=== PATIENT | male | born 1940 | race Caucasian/White ===

== ENCOUNTER → 2022-08-17 | Outpatient (CLI) | payer MEDICARE ==
--- NOTE | 2022-08-19 07:26 | PE ---
EXAMINATION TYPE: PET CT fusion skull to thigh DATE OF EXAM: 08/19/2022 CLINICAL INDICATION:Male, 82 years old with history of C61 Prostate CA; TECHNIQUE: Following the intravenous administration of 5.31 mCi of gallium 68 psma, whole body imag es are performed from the skull base to the midthigh. Images are reviewed on the computer in the cor onal, axial, and sagittal planes. Reconstructed rotating images are created on independent workstati on and reviewed on the computer. A non-contrast CT is performed in conjunction with the PET scan. COMPARISON: CT None, PET/CT None, FINDINGS: Mediastinal SUV mean is 0.4. Hepatic parenchyma SUV mean is 3.0. SKULL BASE AND NECK: No suspicious radiotracer activity. Symmetrical physiologic parotid and subling ual gland uptake. CHEST, MEDIASTINUM, AND HILAR REGION: No suspicious radiotracer activity. ABDOMEN AND PELVIS: No suspicious radiotracer activity. Prostate gland is absent there is radiotracer uptake within the surgical clips in the right with max SUV 15.4 which is hard to separate from the u rinary bladder OSSEOUS STRUCTURES: No suspicious radiotracer activity. OTHER CT: Cardiac conduction device with leads terminating in the right ventricle and right atrium. M ild cardiomegaly. Coronary artery atherosclerosis. Pulmonary trunk measuring up to 3.8 cm suggesting pulmonary hypertension. Emperatriz mesentery in the left upper quadrant. Left renal cysts. Multiple clonic diverticula. Infrarenal fusiform dilation measuring up to 2.5 cm. Left fat-containing inguinal herni a. The prostate is surgically absent. IMPRESSION: Focus of radiotracer uptake near the surgical bed on the right, unclear whether this is within the bl adder wall or just outside the bladder wall.
== END | disposition home or self-care (01) ==
LOC: RADPETMAIN 13:22
PROVIDERS: ATTEND Surgery
DX: C61 Malignant neoplasm of prostate (principal)
CPT/HCPCS: 78815; A9596

== ENCOUNTER → 2022-10-09 | Outpatient (CLI) | payer MEDICARE ==
--- NOTE | 2022-10-09 10:37 | BD ---
EXAMINATION TYPE: Axial Bone Density DATE OF EXAM: 10/09/2022 COMPARISON: NONE CLINICAL HISTORY: 82 years year old Male. ICD-10 CODE: R81.8 OTHER OSTEOPOROSIS WITHOUT CURRENT PATH OLOGI Height: 5ft 5.5inches Weight: 190.1 FRAX RISK QUESTIONS: Alcohol (3 or more units per day): NO Family History (Parent hip fracture): NO Glucocorticoids (More than 3mos): NO (Ex: prednisone, prednisolone, methylprednisolone, dexamethasone, and hydrocortisone). History of Fracture in Adulthood: NO Secondary Osteoporosis: 1. Type 1 Diabetes: NO 2. Hyperthyroidism: NO 4. Malnutrition: NO 5. Chronic liver disease: NO Rheumatoid Arthritis: NO Current Tobacco Use: NO RISK FACTORS HISTORY OF: Hip Fracture (Right/Left): NO Spine Fracture: NO History of Wrist Fracture: NO surgery to Spine/Hip(right/left)/Wrist (right/left): NO Family History of Osteoporosis: NO Active: YES Diet low in dairy products/other sources of calcium: NO Lost more than 2 inches in height since high school: YES Frequent falls: NO Poor Health: GOOD Hyperparathyroidism: NO Adrenal Insufficiency: NO MEDICATIONS: Prednisone or other steroids: NO Thyroid Medications: NO Osteoporosis Medications: NO Additional Medications: CALCIUM, VITAMIN D, METROPROLOL, CARBAMAZEPINE, BLOOD PRESSURE MEDS, CHOLESTE ROL MEDS, NEXIUM, ANXIETY MEDS, INJECTION FOR PSA DONE EVERY THREE MONTHS EXAM MEASUREMENTS: Bone mineral densitometry was performed using the myhomemove System. Bone mineral density as measured about the Lumbar spine is: ----- L1-L4(G/cm2): 1.174 T Score Values are as follows: ----- L1: -0.3 ----- L2: -0.5 ----- L3: 1.0 ----- L4: -0.6 ----- L1-L4: -0.1 BASELINE AT [facility] Bone mineral density about the R hip (g/cm2): 0.814 Bone mineral density about the L hip (g/cm2): 0.899 T Score values are as follows: -----R Neck: -1.6 -----L Neck: -1.0 -----R Total: -0.7 -----L Total: -1.1 BASELINE AT [facility] FRAX%s: The graph provided illustrates a 1.9% chance for a major osteoporotic fx and a 0.9% chance fo r the hips probability for fx in 10 years time. IMPRESSION: Osteopenia (T Score between -2.5 and -1). There is slightly increased risk of fracture and the patient may be considered for treatment. Re-Screen 2-5 years. NOTE: T-SCORE=SD OF THE YOUNG ADULT MEAN.
== END | disposition home or self-care (01) ==
LOC: RADBDWWP 08:28
PROVIDERS: ATTEND Surgery
DX: M85.89 Other specified disorders of bone density and structure, multiple sites (principal)
CPT/HCPCS: 77080

== ENCOUNTER 2023-11-03 11:12 | Inpatient (IN) | payer MEDICARE ==
--- NOTE | 2023-11-03 11:39 | ED ---
General Adult HPI - General Chief complaint: Neuro Symptoms/Deficit Stated complaint: Weakness Time Seen by Provider: 11/03/23 11:19 Source: patient, EMS, RN notes reviewed Mode of arrival: EMS Limitations: physical limitation - History of Present Illness Initial comments: Patient is a pleasant 83-year-old male presenting to the emergency department with concerns for right leg weakness. Onset of symptoms was 6 PM approximately yesterday. Symptoms have been persistent since that time. Patient does have difficulty walking. No upper extremity involvement. No speech involvement. No facial weakness. No confusion or visual changes. No history of similar symptoms previously. Symptoms have been steady since onset. - Related Data Allergies Allergy/AdvReac Type Severity Reaction Status Date / Time No Known Allergies Allergy Verified 11/03/23 11:31 Review of Systems ROS Statement: Those systems with pertinent positive or pertinent negative responses have been documented in the HPI. ROS Other: All systems not noted in ROS Statement are negative. Constitutional: Denies: fever Eyes: Denies: eye pain ENT: Denies: ear pain Respiratory: Denies: cough Cardiovascular: Denies: chest pain Endocrine: Denies: fatigue Gastrointestinal: Denies: abdominal pain Genitourinary: Denies: dysuria Musculoskeletal: Denies: back pain Neurological: Reports: as per HPI, weakness. Denies: headache Past Medical History Past Medical History: Heart Failure, Hypertension History of Any Multi-Drug Resistant Organisms: None Reported Past Surgical History: Prostate Surgery Past Psychological History: No Psychological Hx Reported Smoking Status: Former smoker Past Alcohol Use History: Rare Past Drug Use History: None Reported General Exam Limitations: physical limitation General appearance: alert, in no apparent distress Head exam: Present: atraumatic Eye exam: Present: normal appearance, PERRL, EOMI ENT exam: Present: normal oropharynx Neck exam: Present: normal inspection Respiratory exam: Present: normal lung sounds bilaterally Cardiovascular Exam: Present: regular rate, normal rhythm GI/Abdominal exam: Present: soft. Absent: tenderness Extremities exam: Present: normal inspection, full ROM. Absent: tenderness Neurological exam: Present: alert, oriented X3, CN II-XII intact Expanded Neurological exam: Present: protecting the airway Speech: Present: fluid speech Cranial nerves: Facial Sensation: Normal Sensory exam: Upper Extremity Light Touch: Normal, Lower Extremity Light Touch: Abnormal Right Motor strength exam: RUE: 5, LUE: 5, RLE: 3, LLE: 5 Eye Response: (4) open spontaneously Motor Response: (6) obeys commands Verbal Response: (5) oriented Psychiatric exam: Present: normal affect, normal mood Skin exam: Present: normal color Course Vital Signs 11/03/23 11:19 Temperature 98.9 F Blood Pressure 194/99 EKG Findings - EKG Results: EKG: interpreted by ERMD (Paced rhythm with a rate of 62. Left axis. Wide QRS complex. Left bundle branch block. Nonspecific ST-T.) Medical Decision Making - Medical Decision Making NIH is 2 for right leg weakness and decreased sensation. Patient is not considered a TPA candidate secondary to risks outweighing the benefits. Onset of symptoms was greater than 4.5 hours. Case was discussed with Dr. Rodriguez who agrees. Was pt. sent in by a medical professional or institution (, PA, FINISH REPAIRER, urgent c are, hospital, or senior care...) When possible be specific @ -No Did you speak to anyone other than the patient for history (EMS, parent, family, police, friend...)? What history was obtained from this source @ -No Did you review nursing and triage notes (agree or disagree)? Why? @ -I reviewed and agree with nursing and triage notes Were old charts reviewed (outside hosp., previous admission, EMS record, old EKG, old radiological studies, urgent care reports/EKG's, senior care records)? Report findings @ -No old charts were reviewed Differential Diagnosis (chest pain, altered mental status, abdominal pain women, abdominal pain men, vaginal bleeding, weakness, fever, dyspnea, syncope, headache, dizziness, GI bleed, back pain, seizure, CVA, palpatations, mental health, musculoskeletal)? @ -Differential Weakness: Hypoglycemia, shock, sepsis, hyponatremia, anemia, infection, MO, ETOH, adverse medicine reaction, overdose, stroke, this is not meant to be an all-inclusive list. EKG interpreted by me (3pts min.). @ -As above X-rays interpreted by me (1pt min.). @ -Chest x-ray shows no acute process CT interpreted by me (1pt min.). @ -CT brain without acute obvious abnormality. U/S interpreted by me (1pt. min.). @ -None done What testing was considered but not performed or refused? (CT, X-rays, U/S, labs)? Why? @ -None What meds were considered but not given or refused? Why? @ -None Did you discuss the management of the patient with other professionals (farhana ybarra i.e. , PA, FINISH REPAIRER, lab, RT, psych nurse, social work nurse, certified drug counselor, teacher, chief sales officer, case fitter)? Give summary @ -Case discussed with Dr. Hollis, who will admit covering hospital call. Case also discussed again with Dr. Rodriguez regarding possible vertebral occlusion. He recommends follow-up after patient is discharged as well as Brilinta, aspirin, and Lipitor. Was smoking cessation discussed for >3mins.? @ -No Was critical care preformed (if so, how long)? @ -31 minutes of critical care time Were there social determinants of health that impacted care today? How? (Home lessness, low income, unemployed, alcoholism, drug addiction, transportation, low edu. Level, literacy, decrease access to med. care, fdc, rehab)? @ -No Was there de-escalation of care discussed even if they declined (Discuss DNR or withdrawal of care, Hospice)? DNR status @ -No What co-morbidities impacted this encounter? (DM, HTN, Smoking, COPD, CAD, Cancer, CVA, ARF, Chemo, Hep., AIDS, mental health diagnosis, sleep apnea, morbid obesity)? @ -None Was patient admitted / discharged? Hospital course, mention meds given and route, prescriptions, significant lab abnormalities, going to OR and other pertinent info. @ -Patient reevaluated and updated. Patient unchanged. Patient and family updated. Patient will be admitted. Admission orders written. Consult placed for vascular and neurology. Undiagnosed new problem with uncertain prognosis? @ -No Drug Therapy requiring intensive monitoring for toxicity (Heparin, Nitro, Insulin, Cardizem)? @ -No Were any procedures done? @ -No Diagnosis/symptom? @ -cva Acute, or Chronic, or Acute on Chronic? @ -acute Uncomplicated (without systemic symptoms) or Complicated (systemic symptoms)? @ -default Side effects of treatment? @ -No Exacerbation, Progression, or Severe Exacerbation? @ -No Poses a threat to life or bodily function? How? (Chest pain, USA, MO, pneumonia, PE, COPD, DKA, ARF, appy, cholecystitis, CVA, Diverticulitis, Homicidal, Suicidal, threat to staff... and all critical care pts) @ -No - Lab Data Result diagrams: 11/03/23 12:10 11/03/23 12:10 Lab Results 11/03/23 11/03/23 11/03/23 Range/Units 12:10 12:10 12:10 WBC 7.9 (3.8-10.6) k/uL RBC 4.40 (4.30-5.90) m/uL Hgb 14.2 (13.0-17.5) gm/dL Hct 41.4 (39.0-53.0) % MCV 94.0 (80.0-100.0) fL MCH 32.3 (25.0-35.0) pg MCHC 34.3 (31.0-37.0) g/dL RDW 12.7 (11.5-15.5) % Plt Count 188 (150-450) k/uL MPV 8.6 Neutrophils % 80 % Lymphocytes % 12 % Monocytes % 5 % Eosinophils % 2 % Basophils % 0 % Neutrophils # 6.4 (1.3-7.7) k/uL Lymphocytes # 0.9 L (1.0-4.8) k/uL Monocytes # 0.4 (0-1.0) k/uL Eosinophils # 0.1 (0-0.7) k/uL Basophils # 0.0 (0-0.2) k/uL PT 11.0 (10.0-12.5) sec INR 1.0 (<1.2) APTT 24.3 (22.0-30.0) sec Sodium 140 (137-145) mmol/L Potassium 3.7 (3.5-5.1) mmol/L Chloride 105 (98-107) mmol/L Carbon Dioxide 25 (22-30) mmol/L Anion Gap 10 mmol/L BUN 13 (9-20) mg/dL Creatinine 0.51 L (0.66-1.25) mg/dL Est GFR (CKD-EPI)AfAm >90 (>60 ml/min/1.73 sqM) Est GFR (CKD-EPI)NonAf >90 (>60 ml/min/1.73 sqM) Glucose 169 H (74-99) mg/dL Calcium 9.3 (8.4-10.2) mg/dL Total Bilirubin 0.5 (0.2-1.3) mg/dL AST 23 (17-59) U/L ALT 22 (4-49) U/L Alkaline Phosphatase 65 (38-126) U/L Creatine Kinase 48 L (55-170) U/L Total Protein 6.6 (6.3-8.2) g/dL Albumin 4.0 (3.5-5.0) g/dL Disposition Clinical Impression: Cerebrovascular accident (CVA) Disposition: ADMITTED IP TO THIS HOSP Condition: Serious Is patient prescribed a controlled substance at d/c from ED?: No Referrals: None,Stated [Primary Care Provider] - 1-2 days Time of Disposition: 13:19
--- NOTE | 2023-11-03 12:01 | XR ---
EXAMINATION TYPE: XR chest 2V DATE OF EXAM: 11/03/2023 11:56 AM CLINICAL INDICATION:Male, 83 years old with history of altered mental status; [facility] COMPARISON: Pet/CT 08/17/2022. TECHNIQUE: XR chest 2V Frontal and lateral views of the chest. FINDINGS: Lungs/Pleura: There is no evidence of pleural effusion, focal consolidation, or pneumothorax. Pulmonary vascularity: Unremarkable. Heart/mediastinum: Cardiomediastinal silhouette is unremarkable. Two lead cardiac conduction device o verlying the left hemithorax with lead tips projecting over the right ventricle and right atrium. Musculoskeletal: No acute osseous pathology. Other findings: None IMPRESSION: No acute cardiopulmonary disease/process.
--- NOTE | 2023-11-03 12:12 | CT ---
EXAMINATION TYPE: CT brain wo con CT DLP: 1091.8 mGycm, Automated exposure control for dose reduction was used. DATE OF EXAM: 11/03/2023 11:59 AM COMPARISON: None. CLINICAL INDICATION:Male, 83 years old with history of Neuro deficit, acute, stroke suspected, ams TECHNIQUE: Brain: Axial CT images of the brain were obtained with coronal and sagittal reformats created and rev iewed. Contrast used: None. Oral contrast used: None. FINDINGS: Brain: Extra-axial spaces: No abnormal extra-axial fluid collections. Ventricular system: Within normal limits Cerebral parenchyma: No acute intraparenchymal hemorrhage or mass effect. The myers-white junction is well differentiated. Cerebellum: Unremarkable. Mass effect: No evidence of midline shift. Intracranial vasculature: unremarkable Soft tissues: Normal. Calvarium/osseous structures: No depressed skull fracture. Paranasal sinuses and mastoid air cells: Mild scattered paranasal sinus disease. Visualized orbits: Bilateral aphakia. IMPRESSION: No acute intracranial process.
--- NOTE | 2023-11-03 12:21 | CT ---
EXAMINATION TYPE: CT angio head neck CT DLP: 507 mGycm, Automated exposure control for dose reduction was used. DATE OF EXAM: 11/03/2023 12:09 PM COMPARISON: None. CLINICAL INDICATION:Male, 83 years old with history of Neuro deficit, acute, stroke suspected; PHH, w eakness TECHNIQUE: Axially acquired helical CT angiogram of the head and neck was obtained with contrast. Axi al images are supplemented with 3D reconstructions and MIP images which were post-processed at an in dependent workstation. NASCET criteria used. Contrast used:65 mL of Isovue 370 with IV Contrast, Oral contrast used: None. FINDINGS: CTA HEAD: No evidence of acute intracranial hemorrhage, mass effect, or midline shift. The ventricles, sulci, a nd cisterns are unremarkable. The visualized portions of the internal carotid arteries, middle cerebral arteries, anterior cerebral arteries, and posterior cerebral arteries are patent. origin of left posterior cerebral artery . The basilar and the intracranial portion of the vertebral arteries are patent. CTA NECK: Right Carotid System: The common carotid and external carotid arteries are patent. There is less than 25% stenosis at the c arotid bifurcation secondary to calcified/noncalcified plaque. The rest of the internal carotid arter y is patent. Left Carotid System: The common carotid and external carotid arteries are patent. There is less than 25% stenosis at the c arotid bifurcation secondary to calcified/noncalcified plaque. The rest of the internal carotid arter y is patent. There is poor visualization of the left vertebral artery. There is multiple collaterals posterior nec k and upper thorax possibly due to occlusion of the injection side possibly secondary to the left car diac conduction device leads. There is a three-vessel aortic arch. The origins of the great vessels a re patent. No evidence of hemodynamically significant stenosis. Upper thorax: Mild paraseptal and centrilobular emphysema changes. IMPRESSION: * There are multiple collaterals in the back. If the patient was injected on the left which is what is thought to have happened evaluation is limited due to bolus timing. There may be thrombus within t he upper extremity vasculature possibly secondary to cardiac conduction device leads. * Poor visualization of the left vertebral artery extending from its origin into the intracranial po rtion correlate for occlusion. Evaluation slightly limited by bolus timing and technique. Consider re peat exam with injection into the opposite arm. * There carotid system appears patent. The intracranial vasculature is without stenosis or aneurysm.
[2023-11-03 12:27] LABS: Basophils % (A) 0 %; Eosinophils # (A) 0.1 k/uL (0-0.7); Eosinophils % (A) 2 %; HCT 41.4 % (39.0-53.0); HGB 14.2 gm/dL (13.0-17.5); Lymphocytes # (A) 0.9 k/uL (1.0-4.8); Lymphocytes % (A) 12 %; MCH 32.3 pg (25.0-35.0); MCHC 34.3 g/dL (31.0-37.0); Mean Platelet Volume 8.6; Monocytes # (A) 0.4 k/uL (0-1.0); Monocytes % (A) 5 %; Neutrophils # (A) 6.4 k/uL (1.3-7.7); Neutrophils % (A) 80 %; Platelet Count 188 k/uL (150-450); RDW 12.7 % (11.5-15.5); WBC 7.9 k/uL (3.8-10.6)
[2023-11-03 12:36] LABS: ALT 22 U/L (4-49); AST 23 U/L (17-59); African American GFR (CKD) >90 (>60 ml/min/1.73 sqM); Alkaline Phosphatase 65 U/L (38-126); Anion Gap 10 mmol/L; Blood Urea Nitrogen 13 mg/dL (9-20); Calcium 9.3 mg/dL (8.4-10.2); Carbon Dioxide 25 mmol/L (22-30); Chloride 105 mmol/L (98-107); Creatine Kinase 48 U/L (55-170); Glucose 169 mg/dL (74-99); Non-African American GFR(CKD) >90 (>60 ml/min/1.73 sqM); Potassium 3.7 mmol/L (3.5-5.1); Sodium 140 mmol/L (137-145); Total Bilirubin 0.5 mg/dL (0.2-1.3); Total Protein 6.6 g/dL (6.3-8.2)
[2023-11-03 12:37] LABS: Partial Thromboplastin Time 24.3 sec (22.0-30.0)
[2023-11-03] MEDS ORDERED: ASPIRIN 325 MG TAB PO STA (13:20)
[2023-11-03] MEDS ORDERED: TICAGRELOR 90 MG TAB PO STA (13:22)
--- NOTE | 2023-11-03 13:47 | P.HPIM ---
History of Present Illness H&P Date: 11/03/23 History of present illness; patient is a 83-year-old gentleman with past medical history significant for hypertension, trigeminal neuralgia, hyperlipidemia with the ER because of right lower extremity weakness. Patient stated he was all right yesterday evening when around 6 PM he started noticing that his right leg was getting heavy and weak. He had a hard time ambulating and felt like he was dragging his feet, was also complaining that it felt as if his right leg was asleep. Patient denied any slurred speech, no complain of facial droop. There was no weakness of any other extremity. Patient didn't seek any medical advice at that time. Patient slept through the night and this morning his weakness persisted and he decided to come to the ER Initial lab work done in the ER showed WBC 7.9, hemoglobin 14.2, platelet count 188, sodium 140, potassium 3.7, BUNs 13, creatinine 0.51, AST 23, ALT 22, CK 48 Influenza A not detected Influenza B not detected RSV not detected COVID-19 not detected EKG done in the ER showed heart rate of 62, pacemaker rhythm seen Chest x-ray done in the ER showed no acute cardiopulmonary process CT brain done showed no acute intracranial process CTA head and neck done showed carotid system appears patent, intra cranial vasculature without stenosis or aneurysm. Questionable thrombus within the upper extremity vasculature possible secondary to cardiac conduction device leads Patient admitted to internal medicine service ER physician did talk to interventional neurology regarding possible vertebral occlusion, they recommended keeping patient on aspirin Plavix and Lipitor REVIEW OF SYSTEMS: CONSTITUTIONAL: No fever, no malaise, no fatigue. HEENT: No recent visual problems or hearing problems. Denied any sore throat. CARDIOVASCULAR: No chest pain, orthopnea, PND, no palpitations, no syncope. PULMONARY: No shortness of breath, no cough, no hemoptysis. GASTROINTESTINAL: No diarrhea, no nausea, no vomiting, no abdominal pain. NEUROLOGICAL: As mentioned above HEMATOLOGICAL: Denies any bleeding or petechiae. GENITOURINARY: Denies any burning micturition, frequency, or urgency. MUSCULOSKELETAL/RHEUMATOLOGICAL: As mentioned above ENDOCRINE: Denies any polyuria or polydipsia. The rest of the 14-point review of systems is negative. PHYSICAL EXAMINATION: GENERAL: The patient is alert and oriented x3, not in any acute distress. Well developed, well nourished. HEENT: Pupils are round and equally reacting to light. EOMI. No scleral icterus. No conjunctival pallor. Normocephalic, atraumatic. No pharyngeal erythema. No thyromegaly. CARDIOVASCULAR: S1 and S2 present. No murmurs, rubs, or gallops. PULMONARY: Chest is clear to auscultation, no wheezing or crackles. ABDOMEN: Soft, nontender, nondistended, normoactive bowel sounds. No palpable organomegaly. MUSCULOSKELETAL: No joint swelling or deformity. EXTREMITIES: No cyanosis, clubbing, or pedal edema. NEUROLOGICAL: Cranial nerves II-12 intact, muscle strength is 5 x 5 in all extremities, muscle strength is 3-5 in right lower extremity. SKIN: No rashes. Assessment and plan Acute stroke Hypertension Hyperlipidemia History of trigeminal neuralgia Monitor vital signs Monitor CBC Monitor CMP Continue telemetry monitoring Continue checks Allow permissive hypertension for first 24-48 hours Continue aspirin Interventional neurology recommended adding brilinta Neurology consulted Vascular surgery consulted for possible CTA head and neck finding of possible thrombus in left upper extremity related to cardiac conduction device leads Speech consulted PT and OT consulted Labs and medication were reviewed.. Continue same treatment. Continue with symptomatic treatment. Resume home medication. Monitor labs and vitals. DVT and GI prophylaxis. Further recommendations as per clinical course of the patient Dictation was produced using [employer] dictation software. please excuse any grammatical, word or spelling errors. Past Medical History Past Medical History: Heart Failure, Hypertension History of Any Multi-Drug Resistant Organisms: None Reported Past Surgical History: Prostate Surgery Past Psychological History: No Psychological Hx Reported Smoking Status: Former smoker Past Alcohol Use History: Rare Past Drug Use History: None Reported Medications and Allergies Allergies Allergy/AdvReac Type Severity Reaction Status Date / Time No Known Allergies Allergy Verified 11/03/23 11:31 Physical Exam Vitals: Vital Signs Temp BP 11/03/23 11:19 98.9 F 194/99 Intake and Output 11/02/23 11/03/23 11/03/23 22:59 06:59 14:59 Other: Weight 86.183 kg Results CBC & Chem 7: 11/03/23 12:10 11/03/23 12:10 Labs: Abnormal Lab Results - Last 24 Hours (Table) 11/03/23 11/03/23 Range/Units 12:10 12:10 Lymphocytes # 0.9 L (1.0-4.8) k/uL Creatinine 0.51 L (0.66-1.25) mg/dL Glucose 169 H (74-99) mg/dL Creatine Kinase 48 L (55-170) U/L
[2023-11-03] MEDS: SODIUM CHLORIDE 0.9% 1,000 ML IV SCH ×2 (14:58→22:45)
[2023-11-03] MEDS: carBAMazepine 200 MG TAB PO SCH ×3 (14:58→20:47)
[2023-11-03] MEDS: ATORVASTATIN 40 MG TAB PO SCH (14:58)
[2023-11-03] MEDS: PREGABALIN 75 MG CAP PO SCH ×2 (14:59→20:47)
[2023-11-03] MEDS: hydrALAZINE HCL 20 MG/ML 1 ML VIAL IVP PRN ×2 (15:01→23:35)
[2023-11-03] MEDS: TICAGRELOR 90 MG TAB PO SCH (20:47)
[2023-11-04 04:24] LABS: Glucose,Whole Blood 203 mg/dL (70-110)
[2023-11-04] MEDS ORDERED: ONDANSETRON 4 MG/2 ML VIAL IVP STA (05:04)
[2023-11-04 06:55] LABS: Basophils % (A) 0 %; Eosinophils % (A) 0 %; HCT 40.1 % (39.0-53.0); HGB 13.8 gm/dL (13.0-17.5); Lymphocytes # (A) 0.4 k/uL (1.0-4.8); Lymphocytes % (A) 4 %; MCH 32.5 pg (25.0-35.0); MCHC 34.4 g/dL (31.0-37.0); MCV 94.6 fL (80.0-100.0); Mean Platelet Volume 8.7; Monocytes # (A) 0.3 k/uL (0-1.0); Monocytes % (A) 3 %; Neutrophils # (A) 7.6 k/uL (1.3-7.7); Neutrophils % (A) 91 %; Platelet Count 183 k/uL (150-450); RBC 4.23 m/uL (4.30-5.90); WBC 8.4 k/uL (3.8-10.6)
--- NOTE | 2023-11-04 09:10 | P.GSCN ---
History of Present Illness Consult date: 11/04/23 Reason for Consult: Thrombus Requesting physician: James Regalado History of present illness: This is a pleasant 83-year-old male recently to the emergency department yesterday afternoon for complaints of right leg weakness and right upper extremity weakness. Apparently the symptoms began on Saturday evening around 6:00 and continued to persist so he came to the emergency department for further evaluation. He denies any other focal deficits such as difficulty with speech, vision change or vision loss, left extremity weakness or difficulty swallowing. He denies any previous history of stroke. Past medical history includes heart failure, hypertension, and has pacemaker. He currently states he still has weakness in the right upper and lower extremity. Denies any pain swelling or weakness in his left upper extremity. He had a CT angiogram head and neck that reported limited evaluation due to bolus timing. There may be thrombus within the left upper extremity vascular possible secondary to cardiac, and adduction device leads. Bilateral internal carotid arteries patent with less than 25% stenosis bilaterally. Vascular surgery was consulted for possible venous thrombus in the left upper extremity. Review of Systems A 14 point review systems was completed all pertinent positives and negatives as stated in the HPI. 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, anuerysm, skin cancer, prostate cancer a shot q3 months History of Any Multi-Drug Resistant Organisms: None Reported Past Surgical History: Prostate Surgery Past Psychological History: No Psychological Hx Reported Smoking Status: Former smoker Past Alcohol Use History: Rare Past Drug Use History: None Reported Medications and Allergies Home Medications Medication Instructions Recorded Confirmed Type Aspirin EC [Ecotrin Low Dose] 81 mg PO DAILY 11/03/23 11/03/23 History Atorvastatin [Lipitor] 20 mg PO DAILY 11/03/23 11/03/23 History Furosemide [Lasix] 20 mg PO DAILY 11/03/23 11/03/23 History Metoprolol Tartrate [Lopressor] 200 mg PO BID 11/03/23 11/03/23 History Pregabalin [Lyrica] 150 mg PO BID 11/03/23 11/03/23 History Valsartan [Diovan] 160 mg PO BID 11/03/23 11/03/23 History amLODIPine [Norvasc] 10 mg PO DAILY 11/03/23 11/03/23 History carBAMazepine [TEGretol] 200 mg PO TID 11/03/23 11/03/23 History Allergies Allergy/AdvReac Type Severity Reaction Status Date / Time No Known Allergies Allergy Verified 11/03/23 13:42 Surgical - Exam Vital Signs Temp BP 98.9 F 194/99 11/03/23 11:19 11/03/23 11:19 General appearance: The patient is alert, oriented, appears in no acute distress. HET: Head is normocephalic and atraumatic. Pupils are equal and reactive. Neck: Supple. Heart: Regular. Lungs: Equal expansion, normal respiratory effort. Abdomen: Soft, nontender, nondistended. Extremities: Normal skin color and turgor. Neurological: Speech is fluent, patient has facial symmetry Patient is alert and oriented. 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 Right lower extremity weakness. Bilateral upper and lower extremity with good strength and tone. There is no left upper extremity swelling, redness or pain. Palpable bilateral radial pulses. Palpable bilateral PT pulses. Results - Labs 11/04/23 06:27 11/03/23 12:10 Abnormal Lab Results - Last 24 Hours (Table) 11/03/23 11/03/23 11/04/23 Range/Units 12:10 12:10 04:22 RBC (4.30-5.90) m/uL Lymphocytes # 0.9 L (1.0-4.8) k/uL Creatinine 0.51 L (0.66-1.25) mg/dL Glucose 169 H (74-99) mg/dL POC Glucose (mg/dL) 203 H (70-110) mg/dL Creatine Kinase 48 L (55-170) U/L 11/04/23 Range/Units 06:27 RBC 4.23 L (4.30-5.90) m/uL Lymphocytes # 0.4 L (1.0-4.8) k/uL Creatinine (0.66-1.25) mg/dL Glucose (74-99) mg/dL POC Glucose (mg/dL) (70-110) mg/dL Creatine Kinase (55-170) U/L Diabetes panel 11/03/23 Range/Units 12:10 Sodium 140 (137-145) mmol/L Potassium 3.7 (3.5-5.1) mmol/L Chloride 105 (98-107) mmol/L Carbon Dioxide 25 (22-30) mmol/L BUN 13 (9-20) mg/dL Creatinine 0.51 L (0.66-1.25) mg/dL Glucose 169 H (74-99) mg/dL Calcium 9.3 (8.4-10.2) mg/dL AST 23 (17-59) U/L ALT 22 (4-49) U/L Alkaline Phosphatase 65 (38-126) U/L Total Protein 6.6 (6.3-8.2) g/dL Albumin 4.0 (3.5-5.0) g/dL Calcium panel 11/03/23 Range/Units 12:10 Calcium 9.3 (8.4-10.2) mg/dL Albumin 4.0 (3.5-5.0) g/dL Pituitary panel 11/03/23 Range/Units 12:10 Sodium 140 (137-145) mmol/L Potassium 3.7 (3.5-5.1) mmol/L Chloride 105 (98-107) mmol/L Carbon Dioxide 25 (22-30) mmol/L BUN 13 (9-20) mg/dL Creatinine 0.51 L (0.66-1.25) mg/dL Glucose 169 H (74-99) mg/dL Calcium 9.3 (8.4-10.2) mg/dL Adrenal panel 11/03/23 Range/Units 12:10 Sodium 140 (137-145) mmol/L Potassium 3.7 (3.5-5.1) mmol/L Chloride 105 (98-107) mmol/L Carbon Dioxide 25 (22-30) mmol/L BUN 13 (9-20) mg/dL Creatinine 0.51 L (0.66-1.25) mg/dL Glucose 169 H (74-99) mg/dL Calcium 9.3 (8.4-10.2) mg/dL Total Bilirubin 0.5 (0.2-1.3) mg/dL AST 23 (17-59) U/L ALT 22 (4-49) U/L Alkaline Phosphatase 65 (38-126) U/L Total Protein 6.6 (6.3-8.2) g/dL Albumin 4.0 (3.5-5.0) g/dL - Imaging Comments: CT angiogram head and neck estr[place] regions multiple collaterals in the back. If the patient was injected on the left which is what is thought to have happen evaluation is limited due to bolus timing. There may be thrombus within the upper extremity vasculature possibly secondary to cardiac conduction device leads. Poor visualization of the left vertebral artery extending from its origin into the intracranial portion correlate for occlusion. Evaluation slightly limited by bolus timing and technique. Consider repeat exam with injection into the opposite arm. The carotid system appears patent. Intracranial vasculature is without stenosis or aneurysm. Brain CT reports no acute intracranial process. Chest x-ray reports no acute cardiopulmonary disease/process Assessment and Plan Assessment: 1. Right upper and lower extremity weakness likely CVA 2. Possible left upper extremity thrombus 3. History hypertension 4. Coronary artery disease with pacemaker Plan: Imaging independently reviewed by Dr. Gates. Unclear if there is truly is a thrombus however patient is asymptomatic with no swelling, no pain, and he has palpable radial and ulnar pulses. He is also without any significant bilateral internal carotid artery stenosis. No indication for any vascular surgical intervention or anticoagulation. Thank you for this consultation. Continue with recommendations from neurology. Thank you for this consultation, we will sign off at this time. The impression and plan of care has been dictated as directed. I performed a history and examination of this patient, discussed the same with the dictator. I agree with the dictator's note ,documented as a scribe. Any additional findings or plans will be noted.
[2023-11-04] MEDS: ASPIRIN 81 MG PO SCH (09:29)
[2023-11-04] MEDS: ATORVASTATIN 40 MG TAB PO SCH (09:30)
[2023-11-04] MEDS: PREGABALIN 75 MG CAP PO SCH ×2 (09:30→21:11)
[2023-11-04] MEDS: TICAGRELOR 90 MG TAB PO SCH ×2 (09:30→21:11)
[2023-11-04] MEDS: carBAMazepine 200 MG TAB PO SCH ×5 (09:30→21:11)
--- NOTE | 2023-11-04 11:15 | CA ---
Transthoracic Echo Report Name: Brad Mortensen Age: 83 Gender: M : 1940 Exam Date: 11/04/2023 08:21 Exam Location: [facility] Ht (in): 67 Wt (lb): 190 Ordering Physician: James Regalado DO Attending/Referring Phys: Validation Scientist Elyse Joiner RDCS Procedure CPT: Indications: Thrombus Cardiac Hx: AICD Technical Quality: Fair Contrast 1: Total Dose (mL): Contrast 2: Total Dose (mL): MEASUREMENTS (Male / Female) Normal Values 2D ECHO LV Diastolic Diameter PLAX 5.1 cm 4.2 - 5.9 / 3.9 - 5.3 cm LV Systolic Diameter PLAX 4.0 cm IVS Diastolic Thickness 1.0 cm 0.6 - 1.0 / 0.6 - 0.9 cm LVPW Diastolic Thickness 1.1 cm 0.6 - 1.0 / 0.6 - 0.9 cm LV Relative Wall Thickness 0.4 RV Internal Dim ED PLAX 3.6 cm LA Systolic Diameter LX 3.4 cm 3.0 - 4.0 / 2.7 - 3.8 cm LV Diastolic Volume MOD 4C 120.9 cm??? LV Systolic Volume MOD 4C 65.5 cm??? LV Ejection Fraction MOD 4C 45.8 % LV Cardiac Index MOD 4C 1814.7 cm???/min???m??? LV Diastolic Length 4C 7.9 cm LV Systolic Length 4C 7.0 cm LA Volume 50.0 cm??? 18 - 58 / 22 - 52 cm??? LA Volume Index 24.5 cm???/m??? 16 - 28 cm???/m??? M-MODE Aortic Root Diameter MM 3.8 cm MV E Point Septal Separation 0.7 cm AV Cusp Separation MM 2.6 cm DOPPLER AV Peak Velocity 404.1 cm/s AV Peak Gradient 65.3 mmHg AV Mean Velocity 273.0 cm/s AV Mean Gradient 35.7 mmHg AV Velocity Time Integral 93.2 cm LVOT Peak Velocity 519.2 cm/s LVOT Peak Gradient 107.8 mmHg MV Area PHT 2.0 cm??? Mitral E Point Velocity 123.9 cm/s Mitral A Point Velocity 135.1 cm/s Mitral E to A Ratio 0.9 MV Deceleration Time 371.2 ms MV E' Velocity 4.8 cm/s Mitral E to MV E' Ratio 25.8 TR Peak Velocity 262.1 cm/s TR Peak Gradient 27.5 mmHg Right Ventricular Systolic Press 32.5 mmHg FINDINGS Left Ventricle Left ventricular ejection fraction is estimated at 40-45 %. Left ventricular cavity size normal. Apical and distal anterior wall hypokinesis Right Ventricle Mild right ventricular dilatation. Right ventricular systolic pressure within normal limits. Right Atrium Normal right atrial size. Left Atrium Mildly increased left atrial area. Mitral Valve Structurally normal mitral valve. Mitral annular calcification. No mitral stenosis, or prolapse. Mild mitral regurgitation. Aortic Valve Aortic valve sclerosis. LVOT obstruction with mean gradient of 53 mmhg Tricuspid Valve Structurally normal tricuspid valve. Mild tricuspid regurgitation. Pulmonic Valve Structurally normal pulmonic valve. No pulmonic regurgitation. Pericardium No pericardial effusion. Aorta Mild aortic dilatation at the level of the sinuses of valsalva 38 mm CONCLUSIONS 1. Normal left ventricular size with moderately impaired systolic function and segmental wall motion abnormality 2. Mild mitral and tricuspid regurgitation 3. 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 Fuad Harmon MD (Electronically Signed) Final Date: 04 November 2023 11:14
[2023-11-04 11:20] LABS: Chol/HDL Ratio 2.93 Ratio; LDL Cholesterol,Calculated 81.3 mg/dL (0.0-131.0)
[2023-11-04 11:26] LABS: Glucose,Whole Blood 253 mg/dL (70-110)
[2023-11-04] MEDS ORDERED: DEXTROSE 50% SYRINGE 50 ML IVP PRN ×2 (11:44)
[2023-11-04] MEDS: INSULIN ASPART (NovoLOG) 100 UNIT/ML VIAL SQ SCH ×3 (13:14→21:11)
[2023-11-04] MEDS: amLODIPine 10 MG TAB PO SCH (13:14)
[2023-11-04] MEDS ORDERED: CYANOCOBALAMIN 1,000 MCG/ML 1 ML VIAL IM ONE (13:40)
--- NOTE | 2023-11-04 13:44 | P.CNNES ---
History of Present Illness Consult date: 11/04/23 Requesting physician: James Regalado Reason for Consult: cva History of Present Illness: This is an 83-year-old gentleman who presented emergency department because of the weakness and numbness over the right side. He is accompanied with his daughter who provided some of the history. According to the patient this Saturday early in afternoon he noticed that the he had the unsteady gait with weakness. He fell on since you have had weakness. He said that he woke up and noticed his symptoms and unknown exactly last normal state. Since he is having weakness and numbness over the right side. He brushed off his symptoms and [facility] the [facility] and numbness E [facility]. He denies any history of stroke. Does have underlying history of hypertension, prostate cancer, skin cancer, trigeminal neuralgia. He does have a pacemaker/defibrillator. Some of the workup during his hospital visit consisted of: Lipid panel is triglyceride 127, cholesterol 162, LDL is 81, HDL 55 Findings B12 is 273 which is considered very low normal TSH is 1.650 CK levels for [address] of the head is reported as no acute intercranial process. I personally rev iewed the CT and I agree with the report. CTA angiography of head and neck was reported as there is multiple collateral in the back. If the patient was injected with the left which is what is thought to have happened eval since limited due to bolus timing. There may be a thrombus within the upper extremity vasculature possibly secondary to cardiac conduction device leads. Poor visualization of the left vertebral artery extending from its origin into the intracranial portion correlate for occlusion. The options slightly limited by bolus timing and techniques at. Consider repeat exam with i njection into the opposite arm. The carotid system appears patent. The intracranial vasculature is without stenosis or aneurysm. 2-D echo was reported as normal left ventricular size with moderately impaired systolic function and that segmental wall motion abnormality. 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 The ED team spoke with Dr. Ram, stroke/interventional neurologist with her notes regarding the patient's the strokelike symptoms and the imaging and he recommended follow-up as an outpatient after the patient is discharged and he recommends aspirin, Berlant and Lipitor. Review of Systems The positive and negative as per HPI. 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, anuerysm, skin cancer, prostate cancer a shot q3 months History of Any Multi-Drug Resistant Organisms: None Reported Past Surgical History: Prostate Surgery Past Psychological History: No Psychological Hx Reported Smoking Status: Former smoker Past Alcohol Use History: Rare Past Drug Use History: None Reported Medications and Allergies Home Medications Medication Instructions Recorded Confirmed Type Aspirin EC [Ecotrin Low Dose] 81 mg PO DAILY 11/03/23 11/03/23 History Atorvastatin [Lipitor] 20 mg PO DAILY 11/03/23 11/03/23 History Furosemide [Lasix] 20 mg PO DAILY 11/03/23 11/03/23 History Metoprolol Tartrate [Lopressor] 200 mg PO BID 11/03/23 11/03/23 History Pregabalin [Lyrica] 150 mg PO BID 11/03/23 11/03/23 History Valsartan [Diovan] 160 mg PO BID 11/03/23 11/03/23 History amLODIPine [Norvasc] 10 mg PO DAILY 11/03/23 11/03/23 History carBAMazepine [TEGretol] 200 mg PO TID 11/03/23 11/03/23 History Allergies Allergy/AdvReac Type Severity Reaction Status Date / Time No Known Allergies Allergy Verified 11/03/23 13:42 Physical Examination - Vital Signs Vital Signs: Vital Signs Temp Pulse Pulse Resp BP BP Pulse Ox 11/04/23 09:25 98.5 F 70 16 177/73 96 11/04/23 04:00 97.8 F 67 16 136/67 96 11/04/23 02:00 60 18 11/03/23 23:29 97.7 F 60 18 190/75 97 11/03/23 20:00 98.0 F 63 20 180/88 96 11/03/23 17:05 97.7 F 65 22 180/78 97 11/03/23 14:30 176/100 11/03/23 13:30 181/99 Intake and Output 11/03/23 11/04/23 11/04/23 22:59 06:59 14:59 Intake Total 220 110 Balance 220 110 Intake: IV 20 Invasive Line 1 20 Oral 200 110 Other: Voiding Method Bedside Commode Bedside Commode Bedside Commode # Voids 1 1 Weight 86.183 kg GENERAL: The patient is lying in bed and is not in acute distress. NEUROLOGICAL: Higher mental function: The patient is awake, alert, oriented to self, place and time. Patient is following commands. No aphasia and no neglect. Cranial nerves: The pupils are round, equal and reactive to light and accommodation. Visual townsend are full to confrontation throughout. Extraocular movement is intact no nystagmus is noted. Facial sensation is normal to touch throughout. The facial strength is normal throughout. Hearing is nmildly decreased bilaterally to hand rub. Tongue is midline and moved [id number] without any difficulty. Mild dysarthria is noted. Shoulder shrug is normal bilaterally. Motor: The strength is right upper and lower extremity is 4-4+. Otherwise left is 5 over 5 throughout. Minimal decrease tone over the right side. Normal bulk. Cerebellum: Normal finger to nose bilaterally. Sensation: Sensation is normal to touch throughout. Reflexes (right/left): 2+ throughout. Plantars are downgoing bilaterally. Results - Laboratory Findings CBC and BMP: 11/04/23 06:27 11/03/23 12:10 Abnormal Lab Findings: Abnormal Labs 11/03/23 11/03/23 11/04/23 12:10 12:10 04:22 RBC Lymphocytes # 0.9 L Creatinine 0.51 L Glucose 169 H POC Glucose (mg/dL) 203 H Hemoglobin A1c Creatine Kinase 48 L 11/04/23 11/04/23 11/04/23 06:27 06:27 11:24 RBC 4.23 L Lymphocytes # 0.4 L Creatinine Glucose POC Glucose (mg/dL) 253 H Hemoglobin A1c 7.1 H Creatine Kinase Assessment and Plan Assessment: This is an 83-year-old gentleman who presented emergency department because of right-sided weakness numbness and dysarthria and his symptoms began on 11/02/2023 early afternoon the when he woke up from sleeping. He did not come to the hospital on 11/03/2023. Acute right-sided weakness with numbness and dysarthria likely due to acute ischemic stroke. No IV TPA since outside the window and the risk outweighed the benefit. ?Left vertebral thrombus on CTA Very low normal Vitamin B12 Trigemenial neuralgia over the right side. Diabetes mellitus Hypertension Heart failure status post pacemaker History of prostate cancer History of skin cancer Plan: I ordered MRI of the brain to assess if there is any acute or subacute stroke. We'll assess if his pacemaker is compatible for MRI. If not then we'll get a repeat CT of the head Patient is on aspirin 81 mg daily at home. Per ED team, Dr. Ram recommend addition of Brilinita and is he is on 90mg bid. He is on Lipitor 40mg qhs. Vessel surgeries on board a questionable left upper extremity thrombus in their notes that it is clear there is truly a thrombus however the patient is asymptomatic with no swelling no pain and has palpable radial and ulnar pulses. No indication for vascular intervention or anticoagulation at this time Continue neuro checks Cardiac monitoring PT OT and TELEGRAPH MECHANIC are consulted For ?left vertebral thrombus, per ED team, Dr. Ram recommended to follow-up with him as outpatient. For very low normal Vitamin B12, I started him on Vitamin B12 1000mcg IM once then PO daily after that. For the rest of the medical management to primary team For DVT prophylaxis. I started the patient on subcu heparin 5000 units every 12 hours The plan is discussed with patient and his daughter who is at bedside. Thank you for the consultation. Time with Patient: Greater than 30
[2023-11-04 16:15] LABS: Glucose,Whole Blood 287 mg/dL (70-110)
[2023-11-04 20:12] LABS: Glucose,Whole Blood 156 mg/dL (70-110)
[2023-11-04] MEDS: HEPARIN SODIUM,PORCINE 5,000 UNIT/ML 1 ML VIAL SQ SCH (21:11)
[2023-11-04] MEDS: SODIUM CHLORIDE 0.9% 1,000 ML IV SCH (23:51)
[2023-11-05] MEDS: SODIUM CHLORIDE 0.9% 1,000 ML IV SCH ×2 (03:33→12:06)
[2023-11-05 06:09] LABS: Glucose,Whole Blood 151 mg/dL (70-110)
[2023-11-05] MEDS: INSULIN ASPART (NovoLOG) 100 UNIT/ML VIAL SQ SCH ×4 (06:09→20:01)
[2023-11-05 06:50] LABS: African American GFR (CKD) >90 (>60 ml/min/1.73 sqM); Anion Gap 12 mmol/L; Blood Urea Nitrogen 14 mg/dL (9-20); Calcium 8.6 mg/dL (8.4-10.2); Carbon Dioxide 21 mmol/L (22-30); Chloride 106 mmol/L (98-107); Glucose 171 mg/dL (74-99); Non-African American GFR(CKD) >90 (>60 ml/min/1.73 sqM); Potassium 3.6 mmol/L (3.5-5.1); Sodium 139 mmol/L (137-145)
[2023-11-05] MEDS: HEPARIN SODIUM,PORCINE 5,000 UNIT/ML 1 ML VIAL SQ SCH ×2 (08:38→20:09)
[2023-11-05] MEDS: amLODIPine 10 MG TAB PO SCH (08:38)
[2023-11-05] MEDS: ASPIRIN 81 MG PO SCH (08:38)
[2023-11-05] MEDS: ATORVASTATIN 40 MG TAB PO SCH (08:38)
[2023-11-05] MEDS: TICAGRELOR 90 MG TAB PO SCH ×2 (08:38→20:09)
[2023-11-05] MEDS: PREGABALIN 75 MG CAP PO SCH ×2 (08:38→20:09)
[2023-11-05] MEDS: CYANOCOBALAMIN 500 MCG TAB PO SCH (08:38)
[2023-11-05] MEDS: carBAMazepine 200 MG TAB PO SCH ×3 (10:42→20:09)
[2023-11-05 11:31] LABS: Glucose,Whole Blood 169 mg/dL (70-110)
[2023-11-05] MEDS: VALSARTAN 160 MG TAB PO SCH ×2 (12:05→20:07)
--- NOTE | 2023-11-05 14:30 | P.PN ---
Subjective Progress Note Date: 11/05/23 I am follow-up with the patient and he feels about the same today compared to yesterday. Denies of any worsening of his neurological condition. Objective - Vital Signs Vital signs: Vital Signs Temp 98.6 F 11/05/23 08:34 Pulse 81 11/05/23 14:05 Resp 16 11/05/23 14:05 BP 169/90 11/05/23 08:34 Pulse Ox 93 L 11/05/23 08:34 FiO2 Intake & Output 11/04/23 11/05/23 11/05/23 18:59 06:59 18:59 Intake Total 700 Output Total 300 Balance 700 -300 Intake: Oral 700 Output: Urine 300 Other: Voiding Method Bedside Commode External Catheter External Catheter # Voids 0 - Exam GENERAL: The patient is lying in bed and is not in acute distress. NEUROLOGICAL: Higher mental function: The patient is awake, alert, oriented to self, place and time. Patient is following commands. No aphasia and no neglect. Cranial nerves: The pupils are round, equal and reactive to light and accommodation. Visual townsend are full to confrontation throughout. Extraocular movement is intact no nystagmus is noted. Facial sensation is normal to touch throughout. The facial strength is normal throughout. Hearing is nmildly decreased bilaterally to hand rub. Tongue is midline and moved [id number] without any difficulty. Mild dysarthria is noted. Shoulder shrug is normal bilaterally. Motor: The strength is right upper and lower extremity is 4-4+. Otherwise left is 5 over 5 throughout. Minimal decrease tone over the right side. Normal bulk. Cerebellum: Normal finger to nose bilaterally. Sensation: Sensation is normal to touch throughout. Reflexes (right/left): 2+ throughout. Plantars are downgoing bilaterally. Some of the workup during his hospital visit consisted of: Lipid panel is triglyceride 127, cholesterol 162, LDL is 81, HDL 55 Findings B12 is 273 which is considered very low normal TSH is 1.650 CK levels for [address] of the head is reported as no acute intercranial process. I personally reviewed the CT and I agree with the report. CTA angiography of head and neck was reported as there is multiple collateral in the back. If the patient was injected with the left which is what is thought to have happened eval since limited due to bolus timing. There may be a thrombus within the upper extremity vasculature possibly secondary to cardiac conduction device leads. Poor visualization of the left vertebral artery extending from its origin into the intracranial portion correlate for occlusion. The options slightly limited by bolus timing and techniques at. Consider repeat exam with injection into the opposite arm. The carotid system appears patent. The intracranial vasculature is without stenosis or aneurysm. 2-D echo was reported as normal left ventricular size with moderately impaired systolic function and that segmental wall motion abnormality. 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 The ED team spoke with Dr. Ram, stroke/interventional neurologist with her notes regarding the patient's the strokelike symptoms and the imaging and he recommended follow-up as an outpatient after the patient is discharged and he recommends aspirin, Brilinta and Lipitor. - Labs CBC & Chem 7: 11/04/23 06:27 11/05/23 06:08 Labs: Abnormal Lab Results - Last 24 Hours (Table) 11/04/23 11/04/23 11/05/23 Range/Units 16:14 20:11 06:07 Carbon Dioxide (22-30) mmol/L Creatinine (0.66-1.25) mg/dL Glucose (74-99) mg/dL POC Glucose (mg/dL) 287 H 156 H 151 H (70-110) mg/dL 11/05/23 11/05/23 Range/Units 06:08 11:30 Carbon Dioxide 21 L (22-30) mmol/L Creatinine 0.58 L (0.66-1.25) mg/dL Glucose 171 H (74-99) mg/dL POC Glucose (mg/dL) 169 H (70-110) mg/dL Assessment and Plan Assessment: This is an 83-year-old gentleman who presented emergency department because of right-sided weakness numbness and dysarthria and his symptoms began on 11/02/2023 early afternoon the when he woke up from sleeping. He did not come to the hospital on 11/03/2023. Acute right-sided weakness with numbness and dysarthria due to acute ischemic stroke. No IV TPA since outside the window and the risk outweighed the benefit. ?Left vertebral thrombus on CTA Very low normal Vitamin B12 (273) Trigemenial neuralgia over the right side. Diabetes mellitus hemoglobin A1c 7.1 Hypertension Heart failure status post pacemaker History of prostate cancer History of skin cancer Plan: Cannot obtain MRI since the patient has a pacemaker. A repeat CT of the head was a completed today early in the morning and I feel the patient has acute to subacute ischemia over the left internal capsule but pending official report Patient is on aspirin 81 mg daily at home. Per ED team, Dr. Ram recommend addition of Brilinita and is he is on 90mg bid. He is on Lipitor 40mg qhs. Vessel surgeries on board a questionable left upper extremity thrombus in their notes that it is clear there is truly a thrombus however the patient is asymptomatic with no swelling no pain and has palpable radial and ulnar pulses. No indication for vascular intervention or anticoagulation at this time Continue neuro checks Cardiac monitoring PT OT and NEEDLE PUNCH OPERATOR are consulted For ?left vertebral thrombus, per ED team, Dr. Ram recommended to follow-up with him as outpatient. For very low normal Vitamin B12, I started him on Vitamin B12 1000mcg IM once on 11/04/2023 then PO daily after that. For the rest of the medical management to primary team For DVT prophylaxis. Continue subcu heparin 5000 units every 12 hours The plan is discussed with patient and primary team. Time with Patient: Less than 30
[2023-11-05 16:06] LABS: Glucose,Whole Blood 280 mg/dL (70-110)
--- NOTE | 2023-11-05 16:41 | P.CONS ---
History of Present Illness - Reason for Consult Consult date: 11/05/23 rehab recommendations - Chief Complaint debility - History of Present Illness Mr Mortensen is a 83 y/o right handed, , male, who lives in a 2 story home, with 3-4 NANCY. patient is able to reside on the main floor of the house. Prior to admission, he was ambulating without an assistive device. He was independent for basic/advanced ADLs. Current driving: yes. Retired: yes, but returned to wo rk 2 days/week. Support system: Daughter Breana lives 10 minutes away, granddaughter lives 2 houses away, he has great supportive neighbors. He was admitted to [facility] on 11/03. He presented to the ED c/o right leg weakness that began day prior to admission. Patient tested negati ve for influenza a and B, RSV, COVID-19. EKG showed paced rhythm. Chest x-ray showed no acute cardiopulmonary process. CT of the brain showed no acute intracranial process. CTA head and neck showed patent carotids, intra cranial vasculature without stenosis or aneurysm. Questionable thrombus within the upper extremity vasculature possible secondary to cardiac conduction device leads. Vascular surgery was consulted for possible venous thrombus in the left upper extremity. Vascular surgery determined that there was no indication for any vascular surgical intervention or anticoagulation. Echo revealed an EF of 40 to 45%. 11/05/2023: Patient found sitting in chair at bedside. Daughter at bedside. Patient denies CP, SOB and abdominal pain. Patient denies pain in general. He denies numbness/tingling. Denies issues with urination, LBM 11/03. Patient reports that he is very motivated to work with therapy and gain some movement, strength and endurance back. Patient denies concerns at this time. PM&R consulted for rehab recommendations. 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, anuerysm, skin cancer, prostate cancer a shot q3 months History of Any Multi-Drug Resistant Organisms: None Reported Past Surgical History: Prostate Surgery Past Psychological History: No Psychological Hx Reported Smoking Status: Former smoker Past Alcohol Use History: Rare Past Drug Use History: None Reported Medications and Allergies Home Medications Medication Instructions Recorded Confirmed Type Aspirin EC [Ecotrin Low Dose] 81 mg PO DAILY 11/03/23 11/03/23 History Atorvastatin [Lipitor] 20 mg PO DAILY 11/03/23 11/03/23 History Furosemide [Lasix] 20 mg PO DAILY 11/03/23 11/03/23 History Metoprolol Tartrate [Lopressor] 200 mg PO BID 11/03/23 11/03/23 History Pregabalin [Lyrica] 150 mg PO BID 11/03/23 11/03/23 History Valsartan [Diovan] 160 mg PO BID 11/03/23 11/03/23 History amLODIPine [Norvasc] 10 mg PO DAILY 11/03/23 11/03/23 History carBAMazepine [TEGretol] 200 mg PO TID 11/03/23 11/03/23 History Allergies Allergy/AdvReac Type Severity Reaction Status Date / Time No Known Allergies Allergy Verified 11/03/23 13:42 Physical Exam Vitals: Vital Signs Temp Pulse Pulse Resp BP Pulse Ox 11/05/23 14:05 81 16 11/05/23 11:02 80 81 16 11/05/23 08:34 98.6 F 81 16 169/90 93 L 11/05/23 08:10 93 L 11/05/23 03:56 98.7 F 73 16 168/84 95 11/05/23 02:00 80 73 16 11/04/23 23:41 99.7 F H 73 16 145/80 95 11/04/23 20:00 99.6 F 80 67 18 112/68 95 11/04/23 16:55 81 18 148/76 95 Intake and Output 11/05/23 11/05/23 11/05/23 06:59 14:59 22:59 Output Total 300 Balance -300 Output: Urine 300 Other: Voiding Method External Catheter External Catheter # Voids 0 EXAM; General: WDWN, male, in chair at bedside, daughter present NAD Head: Normocephalic, atraumatic. Eyes: Symmetric Ears: Symmetric. Hearing within normal limits. Mouth: Clear. right sided decreased nasal labial fold noted Neck: Supple. Cardiac: director of cardiac rehabilitation in place. Calves supple, non tender, no edema Lungs: Breathing comfortably on RA. Chest symmetric. Abdomen: Soft, nontender. Extremities: Arthritic changes consistent with age. Neurological: Alert and oriented x 4. Speech slightly dysarthric, but without paraphasic errors Cranial nerves: CN II-XII: intact. Sensation: Intact and symmetrical limbs. Musculoskeletal: ROM WFL EXCEPT: right sided hemiparesis MMT UE Sh Abd EE EF FABD WE HG Right 3 3+ 3+ 2+ 4 Left 5 5 5 5 5 MMT LE HF KE DF EHL Right 3+ 3 3 3+ Left 5 5 5 5 Skin: Skin intact where visible to head, neck, and bilateral upper and lower extremities EXCEPT:PIV Psych: Calm, cooperative Results CBC & Chem 7: 11/04/23 06:27 11/05/23 06:08 Labs: Abnormal Lab Results - Last 24 Hours (Table) 11/04/23 11/04/23 11/05/23 Range/Units 16:14 20:11 06:07 Carbon Dioxide (22-30) mmol/L Creatinine (0.66-1.25) mg/dL Glucose (74-99) mg/dL POC Glucose (mg/dL) 287 H 156 H 151 H (70-110) mg/dL 11/05/23 11/05/23 11/05/23 Range/Units 06:08 11:30 16:05 Carbon Dioxide 21 L (22-30) mmol/L Creatinine 0.58 L (0.66-1.25) mg/dL Glucose 171 H (74-99) mg/dL POC Glucose (mg/dL) 169 H 280 H (70-110) mg/dL Assessment and Plan Assessment: # CVA with right sided hemiparesis -Neurology following -Aspirin, Lipitor, Brilinta -MRI pending -PT/OT/HOUSEKEEPING/LAUNDRY #Dysarthria 2/2 above #Possible venous thrombus in the left upper extremity -Vascular surgery following, determined no indication for any vascular surgical intervention or anticoagulation # Bowel/ Bladder: Nursing to monitor and report concerns if any. -11/05: Denies issues with urination, LBM 11/03 # Diet -Consistent carb # Skin/wound: Skin/Wound care to follow as needed # Pain Management -Lyrica 150 mg twice daily # DVT Prophylaxis: Defer to Ortho/IM management. # Comorbidities: hypertension, CHF, former smoker, trigeminal neuralgia, hyperlipidemia, DM II # Your medical dx and mgt Goals: Modified Independent mobility and ADLS both basic and advanced; increased functional mobility/strength; increased balance, safety, endurance. Improvement in medical issues through your care. Barriers: Right-sided hemiparesis, lives alone Discharge recommendation: IPR when medically stable. Patient previously independent. Patient has good support. Patient motivated and agreeable to IPR. Patient seen and examined in coordination with Dr. Paz via audio/video telemedicine Author: Mariana Dyer NP
--- NOTE | 2023-11-05 18:43 | CT ---
EXAMINATION TYPE: CT brain wo con CT DLP: 1095.4 mGycm, Automated exposure control for dose reduction was used. DATE OF EXAM: 11/05/2023 9:44 AM COMPARISON: CT 11/03/2023. CLINICAL INDICATION:Male, 83 years old with history of right sided weakness and numbness. stroke, Ri ght sided weakness and numbness, Stroke TECHNIQUE: Brain: Axial CT images of the brain were obtained with coronal and sagittal reformats created and rev iewed. Contrast used: None. Oral contrast used: None. FINDINGS: Extra-axial spaces: No abnormal extra-axial fluid collections. Ventricular system: Stable and within normal limits. Cerebral parenchyma: No increased attenuation to suggest acute intraparenchymal hemorrhage. There i s no evidence of an acute territorial ischemic infarct. However, some vague hypoattenuation is sugges kaelyn on the left at the posterior lateral aspect of the thalamus which is not clearly present before. Mild generalized brain atrophy. Scattered hypoattenuating areas are seen within the cerebral white matter, nonspecific but most often seen with chronic microvascular ischemic changes; mild in degree. Cerebellum: No acute abnormality. Mass effect: No evidence of mass effect or midline shift. Intracranial vasculature: Atherosclerotic calcifications of the larger arteries near the skull base. Soft tissues: Normal. Visualized orbits: Orbital contents appear grossly intact. There has likely been previous lens surg serene. Calvarium/osseous structures: No evidence of calvarial fracture. Paranasal sinuses and mastoid air cells: Mild scattered mucosal thickening of the paranasal sinuses w ithout significant fluid accumulation. MRI is more sensitive for detecting acute processes such as infarct, and may be considered if clinica lly warranted. IMPRESSION: 1. Small vague area of hypoattenuation suggested on the left along the posterior lateral aspect of t he thalamus. This may represent ischemic infarct. Further evaluation with MRI may be considered. 2. Otherwise stable exam. No evidence of acute intracranial hemorrhage, mass effect, or midline shif t.
[2023-11-05 19:52] LABS: Glucose,Whole Blood 138 mg/dL (70-110)
[2023-11-06 06:10] LABS: Glucose,Whole Blood 187 mg/dL (70-110)
[2023-11-06] MEDS: INSULIN ASPART (NovoLOG) 100 UNIT/ML VIAL SQ SCH ×2 (06:11→12:04)
[2023-11-06 08:44] LABS: Basophils % (A) 0 %; Eosinophils % (A) 0 %; HCT 39.4 % (39.0-53.0); HGB 13.4 gm/dL (13.0-17.5); Lymphocytes # (A) 0.5 k/uL (1.0-4.8); Lymphocytes % (A) 9 %; MCH 32.4 pg (25.0-35.0); MCHC 34.1 g/dL (31.0-37.0); Mean Platelet Volume 9.5; Monocytes # (A) 0.4 k/uL (0-1.0); Monocytes % (A) 7 %; Neutrophils # (A) 4.7 k/uL (1.3-7.7); Neutrophils % (A) 82 %; Platelet Count 115 k/uL (150-450); RBC 4.15 m/uL (4.30-5.90); RDW 13.3 % (11.5-15.5); WBC 5.8 k/uL (3.8-10.6)
[2023-11-06 09:31] LABS: African American GFR (CKD) >90 (>60 ml/min/1.73 sqM); Anion Gap 13 mmol/L; Blood Urea Nitrogen 11 mg/dL (9-20); Calcium 8.4 mg/dL (8.4-10.2); Carbon Dioxide 20 mmol/L (22-30); Chloride 101 mmol/L (98-107); Glucose 273 mg/dL (74-99); Non-African American GFR(CKD) >90 (>60 ml/min/1.73 sqM); Potassium 3.9 mmol/L (3.5-5.1); Sodium 134 mmol/L (137-145)
[2023-11-06] MEDS: carBAMazepine 200 MG TAB PO SCH (09:42)
[2023-11-06] MEDS: HEPARIN SODIUM,PORCINE 5,000 UNIT/ML 1 ML VIAL SQ SCH (09:42)
[2023-11-06] MEDS: amLODIPine 10 MG TAB PO SCH (09:42)
[2023-11-06] MEDS: TICAGRELOR 90 MG TAB PO SCH (09:42)
[2023-11-06] MEDS: ASPIRIN 81 MG PO SCH (09:42)
[2023-11-06] MEDS: PREGABALIN 75 MG CAP PO SCH (09:42)
[2023-11-06] MEDS: CYANOCOBALAMIN 500 MCG TAB PO SCH (09:42)
[2023-11-06] MEDS: ATORVASTATIN 40 MG TAB PO SCH (09:42)
[2023-11-06] MEDS: VALSARTAN 160 MG TAB PO SCH (09:42)
[2023-11-06] MEDS: SODIUM CHLORIDE 0.9% 1,000 ML IV SCH (09:47)
[2023-11-06 09:51] VITALS: TEMP 98.2
--- NOTE | 2023-11-06 10:23 | P.DS ---
Providers Date of admission: 11/03/23 13:21 Expected date of discharge: 11/06/23 Attending physician: Willy Hollis MD Consults: 11/03/23 13:20 Consult Physician Urgent Consulting Provider: Shawn Gates Consult Reason/Comments: thrombus Do you want consulting provider notified?: Yes 11/03/23 13:21 Consult Physician Urgent Consulting Provider: Akin Kiser Consult Reason/Comments: cva Do you want consulting provider notified?: Yes 11/04/23 15:29 Consult Physician Urgent Consulting Provider: Codey Segovia Consult Reason/Comments: inpatient rehab eval for cva Do you want consulting provider notified?: Yes Primary care physician: Stated None Hospital Course: Final diagnosis Acute CVA on the left along the posterior-lateral aspect of the thalamus as noted on CT Diabetes mellitus History of heart failure with pacemaker Possible thrombus in the left upper extremity, ruled out per vascular surgery Hypertension Hyperlipidemia History of trigeminal neuralgia DVT prophylaxis GI prophylaxis full code Discharge disposition Patient is being discharged in a stable condition with guarded prognosis to [facility] for inpatient rehab . Patient will follow-up with neurology outpatient as well as primary care provider to establish in the outpatient setting upon discharge. Patient is to continue with medications as prescribed below. Total time taken is greater than 35 minutes. Hospital course This is a 83-year-old male who was recently admitted with right lower extremity weakness. Patient reported started one day previously that his right leg was becoming more heavy and weak and was seen and evaluated by neurology here unable to have MRI as patient has a pacemaker although did undergo CT which showed a small vague area of hypoattenuation suggested on the left along the posterior lateral aspect of the thalamus likely representing an ischemic infarct with no acute intracranial hemorrhage or mass effect noted. Patient continues with lucero carlisle and was evaluated by inpatient rehab at [facility] and was accepted and will be going there for continued PT/OT therapy. Patient will continue on aspirin and Brilinta along with statin therapy and needs outpatient follow-up with a primary care provider in [place] to establish as well as neurology in the outpatient setting. There was concerns of a left vertebral thrombus on the CTA and was evaluated and images were reviewed by vascular surgery with no plans for intervention at this time recommend to continue on current medications. Patient is a diabetic and would recommend continuing on consistent carb diet and Accu-Cheks before meals and at bedtime and continued sliding scale. Patient was unable to receive an MRI as patient does have a pacemaker. Please refer to other consultation notes for further HPI. Currently no reports of chest pain, shortness of breath, or palpitations. Patient is afebrile. No reports of nausea or vomiting and patient is tolerating diet. Patient will be going to [facility] inpatient rehab today. Guarded prognosis Physical exam: Gen: This is a 83-year-old male who is awake, alert and oriented 3, all developed, well-nourished HEENT: Head is atraumatic, normocephalic. Pupils equal, round. Sclerae is anicteric. NECK: Supple. No JVD. No lymphadenopathy. No thyromegaly. LUNGS: Clear to auscultation. No wheezes or rhonchi. No intercostal retractions. HEART: Regular rate and rhythm. No murmur. ABDOMEN: Soft. Bowel sounds are present. No masses. No tenderness. EXTREMITIES: No pedal edema. No calf tenderness. NEUROLOGICAL: Patient is awake, alert and oriented x3. Cranial nerves 2 through 12 are grossly intact. Diffusely weak Please refer to medication reconciliation sheet for a list of medications. The impression and plan of care has been dictated by Claudine Moralez, Nurse Practitioner as directed. Dr. Kendal MD I have performed a history and examination and MDM of this patient, discussed the same with the dictator, and agree with the dictator's assessment and plan as written ,documented as a scribe. Based on total visit time, I have performed more than 50% of the visit. Patient Condition at Discharge: Fair Plan - Discharge Summary Discharge Rx Participant: No New Discharge Prescriptions: New Atorvastatin [Lipitor] 40 mg PO DAILY tab Cyanocobalamin [Vitamin B-12] 1,000 mcg PO DAILY tab Ticagrelor [Brilinta] 90 mg PO BID tab Heparin Sodium,Porcine (1 ml) [Heparin Sodium] 5,000 unit SQ Q12HR each INSULIN ASPART (NovoLOG) [NovoLOG (formulary)] 0 unit SQ ACHS each Continue amLODIPine [Norvasc] 10 mg PO DAILY Pregabalin [Lyrica] 150 mg PO BID #4 cap Aspirin EC [Ecotrin Low Dose] 81 mg PO DAILY carBAMazepine [TEGretol] 200 mg PO TID Valsartan [Diovan] 160 mg PO BID Discontinued Furosemide [Lasix] 20 mg PO DAILY Metoprolol Tartrate [Lopressor] 200 mg PO BID Atorvastatin [Lipitor] 20 mg PO DAILY Discharge Medication List Aspirin EC [Ecotrin Low Dose] 81 mg PO DAILY 11/03/23 [History] Valsartan [Diovan] 160 mg PO BID 11/03/23 [History] amLODIPine [Norvasc] 10 mg PO DAILY 11/03/23 [History] carBAMazepine [TEGretol] 200 mg PO TID 11/03/23 [History] Atorvastatin [Lipitor] 40 mg PO DAILY tab 11/06/23 [Rx] Cyanocobalamin [Vitamin B-12] 1,000 mcg PO DAILY tab 11/06/23 [Rx] Heparin Sodium,Porcine (1 ml) [Heparin Sodium] 5,000 unit SQ Q12HR each 11/06/23 [Rx] INSULIN ASPART (NovoLOG) [NovoLOG (formulary)] 0 unit SQ ACHS each 11/06/23 [Rx] Pregabalin [Lyrica] 150 mg PO BID #4 cap 11/06/23 [Rx] Ticagrelor [Brilinta] 90 mg PO BID tab 11/06/23 [Rx] Follow up Appointment(s)/Referral(s): Dez Pruett MD [Medical Doctor] - 1 Week Activity/Diet/Wound Care/Special Instructions: Patient is going to [facility] inpatient rehab Activity as tolerated follow-up with primary care provider on discharge Follow-up with neurology outpatient Continue taking medications as prescribed Continue consistent carb diet Recommend Accu-Cheks before meals and at bedtime and sliding scale Discharge Disposition: TRANSFER TO SNF/ECF
[2023-11-06 11:31] LABS: Glucose,Whole Blood 192 mg/dL (70-110)
[2023-11-06 12:27] VITALS: BP 109/65; PULSE 72; RESP 15
--- NOTE | 2023-11-06 13:08 | P.PN ---
Subjective Progress Note Date: 11/06/23 I am following-up with patient and he continues to have weakness over the right side but otherwise feels about the same and denies of any new neurological issues. Objective - Vital Signs Vital signs: Vital Signs Temp 98.2 F 11/06/23 09:28 Pulse 72 11/06/23 12:03 Resp 15 11/06/23 12:03 BP 109/65 11/06/23 12:03 Pulse Ox 96 11/06/23 12:03 FiO2 Intake & Output 11/05/23 11/06/23 11/06/23 18:59 06:59 18:59 Intake Total 120 450 Output Total 900 Balance -780 450 Intake: Oral 120 450 Output: Urine 900 Other: Voiding Method External Catheter External Catheter External Catheter # Voids 0 - Exam GENERAL: The patient is lying in bed and is not in acute distress. NEUROLOGICAL: Higher mental function: The patient is awake, alert, oriented to self, place and time. Patient is following commands. No aphasia and no neglect. Cranial nerves: The pupils are round, equal and reactive to light and accommodation. Visual townsend are full to confrontation throughout. Extraocular movement is intact no nystagmus is noted. Facial sensation is normal to touch throughout. The facial strength is normal throughout. Hearing is nmildly decreased bilaterally to hand rub. Tongue is midline and moved [id number] without any difficulty. Mild dysarthria is noted. Shoulder shrug is normal bilaterally. Motor: The strength is right upper and lower extremity is 4. Otherwise left is 5 over 5 throughout. Minimal decrease tone over the right side. Normal bulk. Cerebellum: Normal finger to nose bilaterally. Sensation: Sensation is normal to touch throughout. Reflexes (right/left): 2+ throughout. Plantars are downgoing bilaterally. Some of the workup during his hospital visit consisted of: Lipid panel is triglyceride 127, cholesterol 162, LDL is 81, HDL 55 Findings B12 is 273 which is considered very low normal TSH is 1.650 CK levels for [address] of the head is reported as no acute intercranial process. I personally reviewed the CT and I agree with the report. CTA angiography of head and neck was reported as there is multiple collateral in the back. If the patient was injected with the left which is what is thought to have happened eval since limited due to bolus timing. There may be a thrombus within the upper extremity vasculature possibly secondary to cardiac conduction device leads. Poor visualization of the left vertebral artery extending from its origin into the intracranial portion correlate for occlusion. The options slightly limited by bolus timing and techniques at. Consider repeat exam with injection into the opposite arm. The carotid system appears patent. The intracranial vasculature is without stenosis or aneurysm. 2-D echo was reported as normal left ventricular size with moderately impaired systolic function and that segmental wall motion abnormality. 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 The ED team spoke with Dr. Ram, stroke/interventional neurologist with her notes regarding the patient's the strokelike symptoms and the imaging and he recommended follow-up as an outpatient after the patient is discharged and he recommends aspirin, Brilinta and Lipitor. repeat CT head on 11/05/23: It is reported as small vague area of hypoattenuation over the left posterior lateral aspect of the thalamus. This may represent ischemic infarct. I do agree it is left thalamus with somewhat border left posterior horn internal capsule. - Labs CBC & Chem 7: 11/06/23 08:11 11/06/23 08:11 Labs: Abnormal Lab Results - Last 24 Hours (Table) 11/05/23 11/05/23 11/06/23 Range/Units 16:05 19:51 06:07 RBC (4.30-5.90) m/uL Plt Count (150-450) k/uL Lymphocytes # (1.0-4.8) k/uL Sodium (137-145) mmol/L Carbon Dioxide (22-30) mmol/L Creatinine (0.66-1.25) mg/dL Glucose (74-99) mg/dL POC Glucose (mg/dL) 280 H 138 H 187 H (70-110) mg/dL 11/06/23 11/06/23 11/06/23 Range/Units 08:11 08:11 11:25 RBC 4.15 L (4.30-5.90) m/uL Plt Count 115 L (150-450) k/uL Lymphocytes # 0.5 L (1.0-4.8) k/uL Sodium 134 L (137-145) mmol/L Carbon Dioxide 20 L (22-30) mmol/L Creatinine 0.53 L (0.66-1.25) mg/dL Glucose 273 H (74-99) mg/dL POC Glucose (mg/dL) 192 H (70-110) mg/dL Assessment and Plan Assessment: This is an 83-year-old gentleman who presented emergency department because of right-sided weakness numbness and dysarthria and his symptoms began on 11/02/2023 early afternoon the when he woke up from sleeping. He did not come to the hospital on 11/03/2023. Acute right-sided weakness with numbness and dysarthria due to acute ischemic stroke over the left thalamus and feel border of left internal capsule. The stroke is due to chronic small vessel disease due to his risk factorsk (HTN, DM, heart failure, age). No IV TPA since outside the window and the risk outweighed the benefit. ?Left vertebral thrombus on CTA Very low normal Vitamin B12 (273) Trigemenial neuralgia over the right side. Diabetes mellitus hemoglobin A1c 7.1 Hypertension Heart failure status post pacemaker History of prostate cancer History of skin cancer Plan: Cannot obtain MRI since the patient has a pacemaker. Patient is on aspirin 81 mg daily at home. Per ED team, Dr. Ram recommend addition of Brilinita and is he is on 90mg bid. He is on Lipitor 40mg qhs. Vascular surgery team is on board a questionable left upper extremity thrombus in their notes that it is clear there is truly a thrombus however the patient is asymptomatic with no swelling no pain and has palpable radial and ulnar pulses. No indication for vascular intervention or anticoagulation at this time Continue neuro checks Cardiac monitoring PT OT and WALLPAPER SCRAPER are consulted. Patient will benefit from inpatient rehab. For ?left vertebral thrombus, per ED team, Dr. Ram recommended to follow-up with him as outpatient. Recommend following-up within 2-3 weeks. For very low normal Vitamin B12, I started him on Vitamin B12 1000mcg IM once on 11/04/2023 then PO daily after that. For the rest of the medical management to primary team For DVT prophylaxis. Continue subcu heparin 5000 units every 12 hours The plan is discussed with patient, primary team N.P. and his nurse. There is no further neurological work-up. Please notify neurology team if any further concerns. Time with Patient: Less than 30
== END 2023-11-06 15:36 | DRG 65 ==
LOC: EC 11:12 → 3SCARD 13:21
PROVIDERS: ADMIT Internal Medicine; ATTEND Internal Medicine
DX: I63.81 Other cerebral infarction due to occlusion or stenosis of small artery (principal); G81.91 Hemiplegia, unspecified affecting right dominant side; I50.32 Chronic diastolic (congestive) heart failure; E78.5 Hyperlipidemia, unspecified; I25.10 Atherosclerotic heart disease of native coronary artery without angina pectoris; I44.7 Left bundle-branch block, unspecified; I08.1 Rheumatic disorders of both mitral and tricuspid valves; I11.0 Hypertensive heart disease with heart failure; G50.0 Trigeminal neuralgia; R47.1 Dysarthria and anarthria; R29.702 NIHSS score 2; Z79.82 Long term (current) use of aspirin; Z79.899 Other long term (current) drug therapy; Z85.46 Personal history of malignant neoplasm of prostate; Z85.828 Personal history of other malignant neoplasm of skin; Z95.0 Presence of cardiac pacemaker; Z87.891 Personal history of nicotine dependence; Z86.79 Personal history of other diseases of the circulatory system
CPT/HCPCS: 36415; 70450; 70496; 70498; 71046; 80048; 80053; 80061; 82550; 82607; 82746; 83036; 84443; 85025; 85610; 85730; 93005; 93306; 94760; 96374; 99291

== ENCOUNTER → 2024-03-19 | Outpatient (CLI) | payer MEDICARE ==
[2024-03-19 16:38] LABS: HGB 14.7 gm/dL (13.0-17.5); MCH 31.5 pg (25.0-35.0); MCHC 33.3 g/dL (31.0-37.0); MCV 94.7 fL (80.0-100.0); Mean Platelet Volume 8.4; Platelet Count 240 k/uL (150-450); RBC 4.65 m/uL (4.30-5.90); RDW 12.7 % (11.5-15.5); WBC 8.2 k/uL (3.8-10.6)
[2024-03-19 17:02] LABS: ALT 20 U/L (4-49); AST 23 U/L (17-59); African American GFR (CKD) >90 (>60 ml/min/1.73 sqM); Albumin 4.2 g/dL (3.5-5.0); Alkaline Phosphatase 88 U/L (38-126); Anion Gap 4 mmol/L; Bilirubin, Delta 0.3 mg/dL (0.0-0.2); Bilirubin,Unconjugated 0.1 mg/dL (0.0-1.1); Blood Urea Nitrogen 16 mg/dL (9-20); Calcium 9.2 mg/dL (8.4-10.2); Carbon Dioxide 29 mmol/L (22-30); Chloride 105 mmol/L (98-107); Glucose 128 mg/dL (74-99); Magnesium 1.9 mg/dL (1.6-2.3); Non-African American GFR(CKD) >90 (>60 ml/min/1.73 sqM); Phosphorus 3.2 mg/dL (2.5-4.5); Potassium 4.9 mmol/L (3.5-5.1); Sodium 138 mmol/L (137-145); Total Bilirubin 0.4 mg/dL (0.2-1.3); Total Protein 6.7 g/dL (6.3-8.2)
[2024-03-20 04:34] LABS: Prostate Specific Antigen 2.14 ng/mL (0.000-6.500)
[2024-03-20 04:44] LABS: Testosterone <10.00 ng/dL (86.98-780.10)
--- NOTE | 2024-03-21 11:57 | PE ---
EXAMINATION TYPE: PET CT fusion skull to thigh DATE OF EXAM: 03/19/2024 COMPARISON: Prior PET/CT: HISTORY: TECHNIQUE: Following the intravenous administration of 5.65 mCi of gallium 28 PSMA, whole body image s are performed from the skull base to the midthigh. Images are reviewed on the computer in the adonay nal, axial, and sagittal planes. Reconstructed rotating images are created on independent workstatio n and reviewed on the computer. A localization and attenuation correction CT is performed in conjun ction with the PET scan. DLP: 602.07 mGycm SCAN: Subsequent FINDINGS: NECK: Normal uptake within the salivary glands. THORAX: No abnormal uptake ABDOMEN: No abnormal uptake PELVIS: There is intense uptake within the lower pelvis. Uptake within the posterior lower pelvis is very intense at 47.73. Location of this is unclear and posterior wall urinary bladder or residual pro state could be considered. This cannot be differentiated from the urinary bladder. Slightly worse. Th ere are 2 collections of radiotracer raising the suspicion of recurrence OSSEOUS STRUCTURES: No abnormal uptake LOCALIZATION CT: No suspicious changes COMPARISON: Uptake within the posterior urinary bladder region is increased from comparison. IMPRESSION: 1. There is increased uptake inferior and posterior urinary bladder region. This is difficult to conc lusively say this is entirely urinary bladder. Local recurrence should be considered. 2. No suspicious metastatic disease identified
== END | disposition home or self-care (01) ==
LOC: RADPETMAIN 13:46
PROVIDERS: ATTEND Surgery
DX: C61 Malignant neoplasm of prostate (principal); R97.21 Rising PSA following treatment for malignant neoplasm of prostate
CPT/HCPCS: 84153; 80048; 80076; 83735; 84100; 85027; 84403; 82306; 78815; A9596

== ENCOUNTER → 2024-11-13 | Outpatient (CLI) | payer MEDICARE ==
--- NOTE | 2024-11-14 10:54 | PE ---
EXAMINATION TYPE: PET CT fusion skull to thigh DATE OF EXAM: 11/13/2024 CLINICAL INDICATION:Male, 84 years old with history of C61 PROSTATE CANCER; status post prostatectomy with rising PSA. TECHNIQUE: Following the intravenous administration of 5.5 mCi of Ga-68 Illuccix (PSMA), whole body images are performed from the skull base to the midthigh. Images are reviewed on the computer in th e coronal, axial, and sagittal planes. Reconstructed rotating images are created on independent work station and reviewed on the computer. A non-contrast CT is performed in conjunction with the PET sc an. CT DLP: 556.12 mGycm, Automated exposure control for dose reduction was used. COMPARISON: CT None, PET/CT 04-06, MRI: None FINDINGS: Mediastinal SUV mean is 1.44. Hepatic parenchyma SUV mean is 4.5. SKULL BASE AND NECK: No suspicious radiotracer activity. CHEST, MEDIASTINUM, AND HILAR REGION: No suspicious radiotracer activity. ABDOMEN AND PELVIS: Suspicious uptake identified examples include: * Focus of uptake along the omentum in the right abdomen max SUV 7.3 in some ill-defined hazy fat st randing. * Suspicious uptake near the umbilicus. max SUV 8.5 with at least 2 foci noted the external changes noted in this region. * At least 2 left external iliac lymph node max SUV 44, previously 10.5 measuring 8 mm. * At least 2 presacral small foci of uptake max SUV on the right 10.2 and on the left more superiorl y 33.1. * Left periaortic lymph nodes max SUV 17.8. * Uptake near the surgical bed of the prostate gland again redemonstrated correlate from e xcreted radiotracer in the urinary bladder. MUSCULOSKELETAL STRUCTURES: No suspicious radiotracer activity. OTHER CT: * Bilateral hydronephrosis. * Hirsch catheter in place. * Mild circumferential bladder wall thickening suggested. Scattered colonic diverticula. * Left fat-containing inguinal hernia. * Atherosclerosis of the arterial vasculature. * Simple appearing bilateral renal cysts. IMPRESSION: 1. Scattered foci of uptake compatible with metastatic disease including several in the pelvis, 2 ne ar the umbilicus and one in the right mesentery. 2. Hirsch catheter in place with bilateral hydronephrosis suggesting some degree of obstruction. Blad asif wall thickening may also be present versus underdistention. 3. Mild bilateral hydronephrosis possibly secondary to Hirsch catheter malfunction versus partial obs truction from thickened urinary bladder prieto. [facility], , 11/14/2024 10:52 AM
== END | disposition home or self-care (01) ==
LOC: RADPETMAIN 15:16
PROVIDERS: ATTEND Surgery
DX: N13.30 Unspecified hydronephrosis (principal); Z46.82 Encounter for fitting and adjustment of non-vascular catheter
CPT/HCPCS: 78815; A9596

== ENCOUNTER 2025-06-10 16:34 | Inpatient (IN) | payer MEDICARE ==
--- NOTE | 2025-06-10 17:59 | ED ---
Fall HPI - General Chief Complaint: Fall Stated Complaint: Fall Time Seen by Provider: 06/10/25 16:52 Source: patient, family, EMS, RN notes reviewed Mode of arrival: EMS Limitations: no limitations - History of Present Illness Initial Comments: This is an 85-year-old male who presents to the emergency department for a fall. Family members found the patient on the floor this afternoon laying next to his bed. They believe that at some point a couple of days ago he went up to get cereal and when he brought it back to his room he ended up falling. They are not sure if this was a mechanical fall versus syncopal episode. He was unable to get up on his own. They are unsure if he was on the floor for 1 or 2 days, but believe it was at least 24 hours. States that he has not taken his medication in 2 days either. His states that he seems to be somewhat more confused than normal. Patient denies any pain and states that he currently feels fine. He does not believe that he hit his head, however family members are not sure. He is not taking any blood thinners. MD Complaint: fall - Related Data Home Medications Medication Instructions Recorded Confirmed Aspirin EC [Ecotrin Low Dose] 81 mg PO DAILY 11/03/23 06/10/25 Valsartan [Diovan] 160 mg PO BID 11/03/23 06/10/25 carBAMazepine [TEGretol] 200 mg PO TID 11/03/23 06/10/25 Atorvastatin [Lipitor] 20 mg PO DAILY 06/10/25 06/10/25 Darolutamide [Nubeqa] 600 mg PO BID 06/10/25 06/10/25 Ferrous Sulfate [Feosol] 325 mg PO DAILY 06/10/25 06/10/25 Furosemide [Lasix] 20 mg PO DAILY 06/10/25 06/10/25 Metoprolol Tartrate [Lopressor] 200 mg PO BID 06/10/25 06/10/25 Pregabalin [Lyrica] 100 mg PO BID 06/10/25 06/10/25 amLODIPine [Norvasc] 10 mg PO DAILY 06/10/25 06/10/25 hydrALAZINE HCL [Apresoline] 25 mg PO TID 06/10/25 06/10/25 Allergies Allergy/AdvReac Type Severity Reaction Status Date / Time verapamil AdvReac Unknown Verified 06/10/25 20:15 Review of Systems ROS Statement: Those systems with pertinent positive or pertinent negative responses have been documented in the HPI. ROS Other: All systems not noted in ROS Statement are negative. 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 Absent: respiratory distress, wheezes, rales, rhonchi, stridor Cardiovascular Exam: Present: regular rate, normal rhythm GI/Abdominal exam: Present: soft. Absent: distended, tenderness Neurological exam: Present: alert, oriented X3, CN II-XII intact Psychiatric exam: Present: normal affect, normal mood Skin exam: Present: warm, dry, intact, normal color. Absent: rash Course Vital Signs 06/10/25 06/10/25 06/11/25 16:48 20:13 00:05 Temperature 99.6 F Pulse Rate 82 60 64 Respiratory 16 16 16 Rate Blood Pressure 173/79 154/65 140/72 O2 Sat by Pulse 95 96 95 Oximetry 06/11/25 06/11/25 01:15 05:59 Temperature 100.3 F H Pulse Rate 68 68 Respiratory 16 20 Rate Blood Pressure 140/72 160/73 O2 Sat by Pulse 98 95 Oximetry Medical Decision Making - Medical Decision Making This is an 85-year-old male who presents to the emergency department for weakness and a fall. Was pt. sent in by a medical professional or institution? @ -No Did you speak to anyone other than the patient for history? @ -His provided the majority of the history. Did you review nursing and triage notes? @ -Yes, and I agree, it is accurate with regards to the patient's symptoms. Were old charts reviewed? @ -No Differential Diagnosis? @ -Differential Weakness: Hypoglycemia, shock, sepsis, hyponatremia, anemia, infection, PR, ETOH, adverse medicine reaction, overdose, stroke, this is not meant to be an all-inclusive list. EKG interpreted by me (3pts min.)? @ -EKG interpreted by me demonstrating the following: Sinus rhythm. Ventricular rate 75 bpm, OR interval 174 ms, QRS duration 153 ms, QTc 460 ms. X-rays interpreted by me (1pt min.)? @ -Chest x-ray obtained, my interpretation identifies no localized consolidations or infiltrates. CT interpreted by me (1pt min.)? @ -Computed tomography scan of the brain and c-spine obtained. My interpretation identifies no evidence of an acute intracranial hemorrhage, skull fracture, or cervical spine fracture. U/S interpreted by me (1pt. min.)? @ -Not obtained What testing was considered but not performed? (CT, X-rays, U/S, labs)? Why? @ -None What meds were considered but not given? Why? @ -None Did you discuss the management of the patient with other professionals? @ -Yes, Dr. Rowland, who accepts the patient for admission. Did you reconcile home meds? @ -Yes Was smoking cessation discussed for >3mins.? @ -No Was critical care preformed (if so, how long)? @ -No Were there social determinants of health that impacted care today? How? (Homelessness, low income, unemployed, alcoholism, drug addiction, transportation, low edu. Level, literacy, decrease access to med. care, longterm, rehab)? @ -No Was there de-escalation of care discussed even if they declined? (Discuss DNR or withdrawal of care, Hospice)? @ -No What co-morbidities impacted this encounter? (DM, HTN, Smoking, COPD, CAD, Cancer, CVA, Hep., AIDS, mental health diagnosis, sleep apnea, morbid obesity)? @ -CHF, HTN Was patient admitted / discharged? @ -Admitted. Patient was found on the floor by family members and was suspected to be there for 24 to 48 hours. Lab work demonstrates leukocytosis with a white blood cell count of 13.3. He also has an ABHISHEK with a creatinine of 2.09 and eGFR of 28. Creatinine kinase elevated at 4430, which is likely the reason for the ABHISHEK. Troponin elevated at 0.234. Patient denies any chest pain. This is most likely due to demand. Chest x-ray demonstrates a trace left pleural effusion and adjacent left lower lobe opacities that could reflect atelectasis and/or pneumonia. Patient denies any respiratory symptoms at this time. His urine did appear very dark with a foul odor. Patient is dependent on an indwelling Hirsch catheter. This was suspicious for infection, however results of UA were pending at the time of admission. Given this concern for infection, blood culture and 2 g of ceftriaxone were ordered. Of note, nursing staff did replace Hirsch catheter before sending urine. He had been given a liter bolus of normal saline and started on maintenance fluids at 75 mL/h. Patient admitted to medicine for rhabdomyolysis, ABHISHEK, and elevated troponin. Given that patient is asymptomatic in terms of chest pain and the elevation is likely demand induced, he was not started on heparin. Will plan to trend the troponins for the meantime. Consult placed for cardiology regarding the elevated troponin and nephrology was consulted regarding ABHISHEK and rhabdomyolysis. Case discussed with ED attending Dr. Jordan. Undiagnosed new problem with uncertain prognosis? @ -None Drug Therapy requiring intensive monitoring for toxicity (Heparin, Nitro, Insulin, Cardizem)? @ -None Were any procedures done? @ -None Diagnosis/symptom? @ -Rhabdomyolysis, ABHISHEK, elevated troponin, fall Acute, or Chronic, or Acute on Chronic? @ -Acute Uncomplicated (without systemic symptoms) or Complicated (systemic symptoms)? @ -Complicated Side effects of treatment? @ -None Exacerbation, Progression, or Severe Exacerbation] @ -Not applicable Poses a threat to life or bodily function? @ -Yes, can lead to - Lab Data Result diagrams: 06/10/25 17:55 06/10/25 17:55 Lab Results 06/10/25 06/10/25 06/10/25 Range/Units 17:22 17:55 17:55 WBC 13.33 H (4.50-10.00) 10*3/uL RBC 3.99 L (4.40-5.60) 10*6/uL Hgb 12.6 L (13.0-17.0) g/dL Hct 36.8 L (39.6-50.0) % MCV 92.2 (80.0-97.0) fL MCH 31.6 (27.0-32.0) pg MCHC 34.2 (32.0-37.0) g/dL Plt Count 149 (140-440) 10*3/uL MPV 11.9 (9.5-12.2) fL Immature Gran % (Auto) 0.5 % Neutrophils % 92.7 % Lymphocytes % 2.0 % Monocytes % 4.6 % Eosinophils % 0.0 % Basophils % 0.2 % Immature Gran # 0.06 H (0.00-0.04) 10*3/uL Neutrophils # 12.38 H (1.80-7.70) 10*3/uL Lymphocytes # 0.26 L (0.90-5.00) 10*3/uL Monocytes # 0.61 (0.20-1.00) 10*3/uL Eosinophils # 0.00 L (0.04-0.35) 10*3/uL Basophils # 0.02 (0.00-0.10) 10*3/uL PT 11.4 (10.0-12.5) sec INR 1.0 (<1.2) APTT 26.5 (22.0-30.0) sec Sodium (137-145) mmol/L Potassium (3.5-5.1) mmol/L Chloride (98-107) mmol/L Carbon Dioxide (22-30) mmol/L Anion Gap mmol/L BUN (9-20) mg/dL Creatinine (0.66-1.25) mg/dL Est GFR (CKD-EPI)AfAm (>60 ml/min/1.73 sqM) Est GFR (CKD-EPI)NonAf (>60 ml/min/1.73 sqM) Glucose (74-99) mg/dL Plasma Lactic Acid Jose De Jesus (0.7-2.0) mmol/L Calcium (8.4-10.2) mg/dL Phosphorus (2.5-4.5) mg/dL Magnesium (1.6-2.3) mg/dL Total Bilirubin (0.2-1.3) mg/dL AST (17-59) U/L ALT (4-49) U/L Alkaline Phosphatase (38-126) U/L Creatine Kinase (55-170) U/L Troponin I (0.000-0.034) ng/mL Total Protein (6.3-8.2) g/dL Albumin (3.5-5.0) g/dL Urine Color Light Yellow Urine Appearance Turbid (Clear) Urine pH 5.5 (5.0-8.0) Ur Specific [place] 1.014 (1.001-1.035) Urine Protein 1+ H (Negative) Urine Glucose (UA) Negative (Negative) Urine Ketones 1+ H (Negative) Urine Blood Large H (Negative) Urine Nitrite Negative (Negative) Urine Bilirubin Negative (Negative) Urine Urobilinogen <2.0 (<2.0) mg/dL Ur Leukocyte Esterase Large H (Negative) Urine RBC 11 H (0-5) /hpf Urine WBC >182 H (0-5) /hpf Urine WBC Clumps Many H (None) /hpf Urine Bacteria Many H (None) /hpf Urine Mucus Rare H (None) /hpf Urine Opiates Screen Not Detected (NotDetected) Ur Oxycodone Screen Not Detected (NotDetected) Urine Methadone Screen Not Detected (NotDetected) Ur Barbiturates Screen Not Detected (NotDetected) U Tricyclic Antidepress Not Detected (NotDetected) Ur Phencyclidine Scrn Not Detected (NotDetected) Ur Amphetamines Screen Not Detected (NotDetected) U Methamphetamines Scrn Not Detected (NotDetected) U Benzodiazepines Scrn Not Detected (NotDetected) Urine Cocaine Screen Not Detected (NotDetected) U Marijuana (THC) Screen Not Detected (NotDetected) 06/10/25 06/10/25 06/10/25 Range/Units 17:55 17:55 17:55 WBC (4.50-10.00) 10*3/uL RBC (4.40-5.60) 10*6/uL Hgb (13.0-17.0) g/dL Hct (39.6-50.0) % MCV (80.0-97.0) fL MCH (27.0-32.0) pg MCHC (32.0-37.0) g/dL Plt Count (140-440) 10*3/uL MPV (9.5-12.2) fL Immature Gran % (Auto) % Neutrophils % % Lymphocytes % % Monocytes % % Eosinophils % % Basophils % % Immature Gran # (0.00-0.04) 10*3/uL Neutrophils # (1.80-7.70) 10*3/uL Lymphocytes # (0.90-5.00) 10*3/uL Monocytes # (0.20-1.00) 10*3/uL Eosinophils # (0.04-0.35) 10*3/uL Basophils # (0.00-0.10) 10*3/uL PT (10.0-12.5) sec INR (<1.2) APTT (22.0-30.0) sec Sodium 146 H (137-145) mmol/L Potassium 3.9 (3.5-5.1) mmol/L Chloride 110 H (98-107) mmol/L Carbon Dioxide 21 L (22-30) mmol/L Anion Gap 15 mmol/L BUN 53 H (9-20) mg/dL Creatinine 2.09 H (0.66-1.25) mg/dL Est GFR (CKD-EPI)AfAm 32 (>60 ml/min/1.73 sqM) Est GFR (CKD-EPI)NonAf 28 (>60 ml/min/1.73 sqM) Glucose 185 H (74-99) mg/dL Plasma Lactic Acid Jose De Jesus 1.2 (0.7-2.0) mmol/L Calcium 8.8 (8.4-10.2) mg/dL Phosphorus 2.7 (2.5-4.5) mg/dL Magnesium 2.2 (1.6-2.3) mg/dL Total Bilirubin 0.8 (0.2-1.3) mg/dL AST 115 H (17-59) U/L ALT 39 (4-49) U/L Alkaline Phosphatase 80 (38-126) U/L Creatine Kinase 4430 H* (55-170) U/L Troponin I 0.234 H* (0.000-0.034) ng/mL Total Protein 7.4 (6.3-8.2) g/dL Albumin 4.2 (3.5-5.0) g/dL Urine Color Urine Appearance (Clear) Urine pH (5.0-8.0) Ur Specific [place] (1.001-1.035) Urine Protein (Negative) Urine Glucose (UA) (Negative) Urine Ketones (Negative) Urine Blood (Negative) Urine Nitrite (Negative) Urine Bilirubin (Negative) Urine Urobilinogen (<2.0) mg/dL Ur Leukocyte Esterase (Negative) Urine RBC (0-5) /hpf Urine WBC (0-5) /hpf Urine WBC Clumps (None) /hpf Urine Bacteria (None) /hpf Urine Mucus (None) /hpf Urine Opiates Screen (NotDetected) Ur Oxycodone Screen (NotDetected) Urine Methadone Screen (NotDetected) Ur Barbiturates Screen (NotDetected) U Tricyclic Antidepress (NotDetected) Ur Phencyclidine Scrn (NotDetected) Ur Amphetamines Screen (NotDetected) U Methamphetamines Scrn (NotDetected) U Benzodiazepines Scrn (NotDetected) Urine Cocaine Screen (NotDetected) U Marijuana (THC) Screen (NotDetected) - Radiology Data Radiology results: report reviewed, image reviewed Disposition Clinical Impression: Fall, Rhabdomyolysis, ABHISEHK (acute kidney injury), Elevated troponin Disposition: ADMITTED IP TO THIS HOSP
[2025-06-10] MEDS: SODIUM CHLORIDE 0.9% 1,000 ML IV ONE (18:03)
[2025-06-10 18:18] LABS: Basophils # (A) 0.02 10*3/uL (0.00-0.10); Basophils % (A) 0.2 %; Eosinophils # (A) 0.00 10*3/uL (0.04-0.35); Eosinophils % (A) 0.0 %; HCT 36.8 % (39.6-50.0); HGB 12.6 g/dL (13.0-17.0); Lymphocytes # (A) 0.26 10*3/uL (0.90-5.00); Lymphocytes % (A) 2.0 %; MCH 31.6 pg (27.0-32.0); MCHC 34.2 g/dL (32.0-37.0); MCV 92.2 fL (80.0-97.0); Monocytes # (A) 0.61 10*3/uL (0.20-1.00); Monocytes % (A) 4.6 %; Neutrophils # (A) 12.38 10*3/uL (1.80-7.70); Neutrophils % (A) 92.7 %; Platelet Count 149 10*3/uL (140-440); RBC 3.99 10*6/uL (4.40-5.60); RDW 13.5 % (11.5-14.5); WBC 13.33 10*3/uL (4.50-10.00)
[2025-06-10 18:34] LABS: ALT 39 U/L (4-49); AST 115 U/L (17-59); African American GFR (CKD) 32 (>60 ml/min/1.73 sqM); Albumin 4.2 g/dL (3.5-5.0); Alkaline Phosphatase 80 U/L (38-126); Anion Gap 15 mmol/L; Blood Urea Nitrogen 53 mg/dL (9-20); Calcium 8.8 mg/dL (8.4-10.2); Carbon Dioxide 21 mmol/L (22-30); Chloride 110 mmol/L (98-107); Glucose 185 mg/dL (74-99); Magnesium 2.2 mg/dL (1.6-2.3); Non-African American GFR(CKD) 28 (>60 ml/min/1.73 sqM); Potassium 3.9 mmol/L (3.5-5.1); Sodium 146 mmol/L (137-145); Total Protein 7.4 g/dL (6.3-8.2)
[2025-06-10 18:35] LABS: INR 1.0 (<1.2); Partial Thromboplastin Time 26.5 sec (22.0-30.0); Prothrombin Time 11.4 sec (10.0-12.5)
--- NOTE | 2025-06-10 18:38 | XR ---
EXAMINATION TYPE: XR chest 2V DATE OF EXAM: 06/10/2025 6:31 PM COMPARISON: Prior chest radiograph 11/03/2023. CLINICAL INDICATION: Male, 85 years old with history of altered mental status; [facility] TECHNIQUE: XR chest 2V Frontal and lateral views of the chest. FINDINGS: Lungs/Pleura: Trace left pleural effusion. No sizable right-sided pleural effusion. Left lung base op acity which could reflect atelectasis and/or pneumonia. No pneumothorax. Pulmonary vascularity: Unremarkable. Heart/mediastinum: Cardiomediastinal silhouette is unremarkable. Left chest wall cardiac AICD device with leads overlying the cardiac silhouette. Musculoskeletal: No acute osseous pathology. Other findings: None IMPRESSION: Trace left pleural effusion and adjacent left lower lobe opacities which could reflect atelectasis an d/or pneumonia. [facility], , 06/10/2025 6:35 PM
--- NOTE | 2025-06-10 18:44 | CT ---
EXAMINATION TYPE: CT brain cspine wo con DATE OF EXAM: 06/10/2025 6:36 PM COMPARISON: None PET/CT 11/03/2024. CLINICAL INDICATION: Male, 85 years old with history of Fall, AMS; fall ams TECHNIQUE: Brain: Multiple axial CT images of the brain were obtained without IV contrast. Cspine: Axial CT images from the skull base to the inferior aspect of T2 we obtained without intraven ous contrast. Coronal and sagittal reformatted images were also reviewed. . CT DLP: 1337.4 mGycm, Automated exposure control for dose reduction was used. FINDINGS: Brain: Extra-axial spaces: No abnormal extra-axial fluid collections. Ventricular system: Dilatation in proportion to cerebral atrophy. Cerebral parenchyma: No acute intraparenchymal hemorrhage or mass effect. Scattered hypoattenuating areas are seen within the white matter. Cerebellum: Unremarkable. Mass effect: No evidence of midline shift. Intracranial vasculature: unremarkable Soft tissues: Normal. Calvarium/osseous structures: No depressed skull fracture. Paranasal sinuses and mastoid air cells: Clear. Visualized orbits: The lenses are surgically removed from the globes. Cervical spine: Fracture: None. Osseous structures: Unremarkable Vertebral alignment: Within normal limits. Spinal canal/Neural Foramina: Multilevel facet arthropathy and uncovertebral hypertrophy in combinati on with posterior disc osteophyte complexes causing varying degrees of multilevel spinal canal and ne ural foraminal narrowing. Neck soft tissues: Prevertebral soft tissues are within normal limits. Other: The airway is patent. The lung apices are clear. IMPRESSION: 1. No acute intracranial process. 2. No acute fracture or traumatic subluxation of the cervical spine. [facility], , 06/10/2025 6:41 PM
[2025-06-10 19:55] LABS: Creatine Kinase 4430 U/L (55-170)
[2025-06-10] MEDS ORDERED: HYDROcodone/APAP 5-325MG 1 EACH TAB PO PRN (19:59)
[2025-06-10] MEDS ORDERED: MORPHINE SULFATE 4 MG/ML SYRINGE IV PRN (19:59)
[2025-06-10] MEDS ORDERED: ONDANSETRON 4 MG/2 ML VIAL IVP PRN (19:59)
[2025-06-10] MEDS ORDERED: NALOXONE 0.4 MG/ML 1 ML VIAL IV PRN (19:59)
[2025-06-10] MEDS: SODIUM CHLORIDE 0.9% 1,000 ML IV SCH (20:06)
[2025-06-10] MEDS: cefTRIAXone IN SWFI 1,000 MG/10 ML SYRINGE IVP STA (20:11)
[2025-06-10 20:46] LABS: Bacteria,Urine Many /hpf; Bilirubin,Urine Negative (Negative); Blood,Urine Large (Negative); Color,Urine Light Yellow; Glucose,Urine (UA) Negative (Negative); Ketones,Urine 1+ (Negative); Leukocyte Esterase,Urine Large (Negative); Mucus,Urine Rare /hpf; Nitrite,Urine Negative (Negative); PH, Urine 5.5 (5.0-8.0); Protein,Urine 1+ (Negative); RBC,Urine 11 /hpf (0-5); Specific Gravity,Urine 1.014 (1.001-1.035); Urobilinogen,Urine <2.0 mg/dL (<2.0); WBC,Urine >182 /hpf (0-5)
[2025-06-10 20:47] LABS: Barbiturate Screen,Urine Not Detected (NotDetected); Benzodiazepines Screen,Urine Not Detected (NotDetected); Opiate Screen,Urine Not Detected (NotDetected); Oxycodone Screen, Urine Not Detected (NotDetected); Phencyclidine Screen,Urine Not Detected (NotDetected); Tricyclic Antidepressant,Urine Not Detected (NotDetected); Urn Cannabinoid Scrn Not Detected (NotDetected)
[2025-06-10] MEDS: NUBEQA 300 MG PO SCH (23:59)
[2025-06-10] MEDS: METOPROLOL TARTRATE 50 MG TAB PO SCH (23:59)
[2025-06-10] MEDS: PREGABALIN 100 MG CAP PO SCH (23:59)
[2025-06-10] MEDS: VALSARTAN 160 MG TAB PO SCH (23:59)
[2025-06-11] MEDS: carBAMazepine 200 MG TAB PO SCH (00:04)
[2025-06-11] MEDS: ACETAMINOPHEN TAB 325 MG TAB PO PRN (06:05)
[2025-06-11] MEDS: PANTOPRAZOLE 40 MG/10 ML VIAL IV SCH (08:37)
[2025-06-11] MEDS: FUROSEMIDE 20 MG TAB PO SCH (08:37)
[2025-06-11] MEDS: amLODIPine 10 MG TAB PO SCH (08:38)
[2025-06-11] MEDS: FERROUS SULFATE 325 MG TAB PO SCH (08:38)
[2025-06-11] MEDS: ATORVASTATIN 20 MG TAB PO SCH (08:38)
[2025-06-11] MEDS: ASPIRIN 81 MG PO SCH (08:38)
--- NOTE | 2025-06-11 09:19 | P.CRDCN ---
History of Present Illness Consult date: 06/11/25 History of present illness: Patient is a 85-year-old male with history of CVA in 2022, LBBB, hypertrophic obstructive cardiomyopathy status post AICD, hypertension and hyperlipidemia is admitted to the hospital for rhabdomyolysis secondary to unwitnessed fall with unknown downtime. As per the ER note, patient was found confused laying on the floor next to his bed yesterday afternoon as noticed by his family members. Patient reports that he does not recall how he fell on the floor and the most recent event he recalls is his grandson helping him get up from the floor and eventually he was brought to the ER for further evaluation. Patient denies syncopal or presyncopal episodes before the fall event. He denies chest pain, shortness of breath. He lives alone at home and is generally compliant with his medications. However he reports that for the last 4 to 5 days he has not been taking his medications and is not eating his meal well citing family issues. He normally uses a walker for ambulation because of his right sided weakness due to stroke in 2022. He reports that he has had falls in the past secondary to imbalance especially whenever he turns around too quickly. During his previous falls he denies losing consciousness. Former smoker, quit 30 years ago. His primary spring machine operator is Dr. Carlos Fuller. His most recent echocardiogram in 2022 shows LVEF of 40 to 45%, hypertrophic obstructive cardiomyopathy. Labs and images during this admission: WBC 13.3, hemoglobin 12.6, sodium 146, potassium 3.9, BUN 53, creatinine 2.09, magnesium 2.2, creatinine kinase 4430, troponin I 0.234, 0.319, 0.331 CT brain shows no evidence of acute or subacute stroke or mass Chest x-ray shows AICD with trace pleural effusion. EKG shows normal sinus rhythm with left bundle branch block which is old as compared with previous EKG from 2022. No new ST-T wave changes noted. UDS is negative Review of systems: Pertinent positives and negatives as discussed in HPI, a complete review of systems was performed and all other systems are negative. Physical examination: Vital signs reviewed General: non toxic, no distress Head: atraumatic, normocephalic, symmetric Eyes: EOMI, no lid lag, anicteric sclera, pupils equal round reactive to light ENT: Nose and ears atraumatic Neck: No cervical lymphadenopathy, trachea midline, supple Mouth: no lip lesion, dry mucus membranes Cardiovascular: S1S2 reg, 3/6 systolic murmur, positive dorsalis pedis pulse bilateral, no edema Lungs: CTA bilateral, no rhonchi, no rales, no accessory muscle use Abdominal: soft, nontender to palpation, no guarding Ext: muscle strength 5 out of 5 in all 4 extremities grossly, no gross muscle atrophy, no contractures, Neuro: CN II-XI grossly intact, no gross focal neuro deficits Psych: Alert, oriented, appropriate affect Assessment: #Rhabdomyolysis secondary to unknown downtime secondary to fall (Mechanical versus syncopal), rule out cardiac cause #Acute kidney injury secondary to rhabdomyolysis #Elevated troponin likely secondary to NSTEMI type II #Leukocytosis likely reactive #Hypovolemic hyponatremia #History of hypertrophic obstructive cardiomyopathy status post AICD #Left bundle branch block #Hypertension Plan: Resume home cardiac medications Hold valsartan in the setting of ABHISHEK Order echocardiogram for cardiac structure assessment Order carotid duplex ultrasound Continue with IV fluids Interrogate AICD Correct electrolyte abnormality and continue monitor urine output Check BMP tomorrow a.m. 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, anuerysm, skin cancer, prostate cancer a shot q3 months History of Any Multi-Drug Resistant Organisms: None Reported Past Surgical History: Prostate Surgery Past Psychological History: No Psychological Hx Reported Smoking Status: Former smoker Past Alcohol Use History: Rare Past Drug Use History: None Reported Medications and Allergies Home Medications Medication Instructions Recorded Confirmed Type Aspirin EC [Ecotrin Low Dose] 81 mg PO DAILY 11/03/23 06/10/25 History Valsartan [Diovan] 160 mg PO BID 11/03/23 06/10/25 History carBAMazepine [TEGretol] 200 mg PO TID 11/03/23 06/10/25 History Atorvastatin [Lipitor] 20 mg PO DAILY 06/10/25 06/10/25 History Darolutamide [Nubeqa] 600 mg PO BID 06/10/25 06/10/25 History Ferrous Sulfate [Feosol] 325 mg PO DAILY 06/10/25 06/10/25 History Furosemide [Lasix] 20 mg PO DAILY 06/10/25 06/10/25 History Metoprolol Tartrate [Lopressor] 200 mg PO BID 06/10/25 06/10/25 History Pregabalin [Lyrica] 100 mg PO BID 06/10/25 06/10/25 History amLODIPine [Norvasc] 10 mg PO DAILY 06/10/25 06/10/25 History hydrALAZINE HCL [Apresoline] 25 mg PO TID 06/10/25 06/10/25 History Allergies Allergy/AdvReac Type Severity Reaction Status Date / Time verapamil AdvReac Unknown Verified 06/10/25 20:15 Physical Exam Vitals: Vital Signs Temp Pulse Resp BP Pulse Ox 06/11/25 08:34 71 18 151/75 97 06/11/25 05:59 100.5 F H 68 20 160/73 95 06/11/25 01:15 68 16 140/72 98 06/11/25 00:05 64 16 140/72 95 06/10/25 20:13 60 16 154/65 96 06/10/25 16:48 99.6 F 82 16 173/79 95 Intake and Output 06/10/25 06/11/25 06/11/25 22:59 06:59 14:59 Other: Weight 64.864 kg Results 06/12/25 05:45 06/12/25 05:45 Cardiac Enzymes 06/10/25 06/10/25 06/10/25 Range/Units 17:55 17:55 21:18 AST 115 H (17-59) U/L Troponin I 0.234 H* 0.319 H* (0.000-0.034) ng/mL 06/11/25 Range/Units 00:00 AST (17-59) U/L Troponin I 0.331 H* (0.000-0.034) ng/mL Coagulation 06/10/25 Range/Units 17:55 PT 11.4 (10.0-12.5) sec APTT 26.5 (22.0-30.0) sec CBC 06/10/25 Range/Units 17:55 WBC 13.33 H (4.50-10.00) 10*3/uL RBC 3.99 L (4.40-5.60) 10*6/uL Hgb 12.6 L (13.0-17.0) g/dL Hct 36.8 L (39.6-50.0) % Plt Count 149 (140-440) 10*3/uL Comprehensive Metabolic Panel 06/10/25 Range/Units 17:55 Sodium 146 H (137-145) mmol/L Potassium 3.9 (3.5-5.1) mmol/L Chloride 110 H (98-107) mmol/L Carbon Dioxide 21 L (22-30) mmol/L BUN 53 H (9-20) mg/dL Creatinine 2.09 H (0.66-1.25) mg/dL Glucose 185 H (74-99) mg/dL Calcium 8.8 (8.4-10.2) mg/dL AST 115 H (17-59) U/L ALT 39 (4-49) U/L Alkaline Phosphatase 80 (38-126) U/L Total Protein 7.4 (6.3-8.2) g/dL Albumin 4.2 (3.5-5.0) g/dL Current Medications Generic Name Dose Route Start Last Admin Trade Name Freq PRN Reason Stop Dose Admin Acetaminophen 650 mg 06/10/25 19:59 06/11/25 06:05 Acetaminophen Tab 325 Mg Tab PO 650 mg Q6HR PRN Administration Mild Pain or Fever > 100.5 Hydrocodone Bitart/Acetaminophen 1 each 06/10/25 19:59 Hydrocodone/Apap 5-325mg 1 Each Tab PO Q4HR PRN Moderate Pain (Scale 4 to 6) Amlodipine Besylate 10 mg 06/11/25 09:00 06/11/25 08:38 Amlodipine 10 Mg Tab PO 10 mg DAILY SALVATORE Administration Aspirin 81 mg 06/11/25 09:00 06/11/25 08:38 Aspirin 81 Mg PO 81 mg DAILY SALVATORE Administration Atorvastatin Calcium 20 mg 06/11/25 09:00 06/11/25 08:38 Atorvastatin 20 Mg Tab PO 20 mg DAILY SALVATORE Administration Carbamazepine 200 mg 06/10/25 22:00 06/11/25 08:37 Carbamazepine 200 Mg Tab PO 200 mg TID SALVATORE Administration Ferrous Sulfate 325 mg 06/11/25 09:00 06/11/25 08:38 Ferrous Sulfate 325 Mg Tab PO 325 mg DAILY SALVATORE Administration Furosemide 20 mg 06/11/25 09:00 06/11/25 08:37 Furosemide 20 Mg Tab PO 20 mg DAILY SALVATORE Administration Hydralazine HCl 25 mg 06/10/25 22:00 06/11/25 08:37 Hydralazine Hcl 25 Mg Tab PO 25 mg TID SALVATORE Administration Sodium Chloride 1,000 mls @ 75 mls/hr 06/10/25 20:00 06/10/25 20:06 Saline 0.9% IV 75 mls/hr .[id number] SALVATORE Administration Ceftriaxone Sodium 1 gm/ 50 mls @ 100 mls/hr 06/11/25 09:00 Sodium Chloride IVPB Q24HR SALVATORE Protocol Metoprolol Tartrate 200 mg 06/10/25 21:00 06/11/25 08:38 Metoprolol Tartrate 50 Mg Tab PO 200 mg BID SALVATORE Administration Morphine Sulfate 4 mg 06/10/25 19:59 Morphine Sulfate 4 Mg/Ml Syringe IV Q4HR PRN Severe Pain (Scale 7 to 10) Naloxone HCl 0.2 mg 06/10/25 19:59 Naloxone 0.4 Mg/Ml 1 Ml Vial IV Q2M PRN Opioid Reversal Nubeqa (Darolutamide 600 mg 06/10/25 21:00 06/11/25 08:38 ) 300 Mg Tablet PO 600 mg BID SALVATORE Administration Ondansetron HCl 4 mg 06/10/25 19:59 Ondansetron 4 Mg/2 Ml Vial IVP Q8HR PRN Nausea And Vomiting Pantoprazole Sodium 40 mg 06/11/25 09:00 06/11/25 08:37 Pantoprazole 40 Mg/10 Ml Vial IV 40 mg DAILY SALVATORE Administration Pregabalin 100 mg 06/10/25 21:00 06/11/25 08:37 Pregabalin 100 Mg Cap PO 100 mg BID SALVATORE Administration Intake and Output 06/10/25 06/11/25 06/11/25 22:59 06:59 14:59 Other: Weight 64.864 kg 06/10/25 17:55 06/10/25 17:55
--- NOTE | 2025-06-11 09:20 | XR ---
EXAMINATION TYPE: XR chest 2V DATE OF EXAM: 06/11/2025 9:16 AM COMPARISON: 06/10/2025 CLINICAL INDICATION: Male, 85 years old with history of follow up pneumonia, , TECHNIQUE: Frontal and lateral views FINDINGS: Left anterior chest wall AICD generator with right atrial and right ventricular leads. Heart normal s ize. Mild interstitial prominence and hyperinflation. Large appearance to the main right pulmonary ar alyce. There is some mild patchy retrocardiac opacity. Trace left pleural effusion. IMPRESSION: 1. COPD with suspected pulmonary arterial hypertension. 2. Trace left pleural effusion with some adjacent atelectasis and or consolidation persists. [facility], Workstation: [facility], 06/11/2025 9:18 AM
--- NOTE | 2025-06-11 10:12 | P.HPIM ---
History of Present Illness H&P Date: 06/11/25 Brad Mortensen is a 85-year-old male patient who presented to the ER after being found on the ground by his bed for approximately 48 hours. Patient apparently was found by his family in a somewhat confused state lying next to his bed. Denies loss of consciousness. Patient has a past medical history of heart failure, hypertension, prostate cancer and ex-smoker. Testing in the emergency room revealed no acute intracranial process seen on head CT. EKG showing sinus rhythm heart rate 75. Chest x-ray completed showing COPD with suspected pulmonary arterial hypertension and trace left pleural effusion with some adjacent atelectasis and or consolidation persist. Lab work completed showing white blood cell 13.33, hemoglobin 12.6, sodium 146, creatinine 2.09 bun 53. Creatinine kinase 4430. Troponin 0.234, 0.319 and 0.331. UA positive for urinary tract infection drug screen negative. At this time patient will be admitted patient started on IV antibiotics for urinary tract infection. Cardiology services consulted for positive troponins. 2D echo ordered nephrology services consulted. Current vital signs temp 100.5, heart rate 70- 71, respiratory rate 18, blood pressure 151/75 with pulse ox of 97% on room air. Patient denies chest pain or shortness of breath. Patient denies nausea vomiting or diarrhea. 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, anuerysm, skin cancer, prostate cancer a shot q3 months History of Any Multi-Drug Resistant Organisms: None Reported Past Surgical History: Prostate Surgery Past Psychological History: No Psychological Hx Reported Smoking Status: Former smoker Past Alcohol Use History: Rare Past Drug Use History: None Reported Medications and Allergies Home Medications Medication Instructions Recorded Confirmed Type Aspirin EC [Ecotrin Low Dose] 81 mg PO DAILY 11/03/23 06/10/25 History Valsartan [Diovan] 160 mg PO BID 11/03/23 06/10/25 History carBAMazepine [TEGretol] 200 mg PO TID 11/03/23 06/10/25 History Atorvastatin [Lipitor] 20 mg PO DAILY 06/10/25 06/10/25 History Darolutamide [Nubeqa] 600 mg PO BID 06/10/25 06/10/25 History Ferrous Sulfate [Feosol] 325 mg PO DAILY 06/10/25 06/10/25 History Furosemide [Lasix] 20 mg PO DAILY 06/10/25 06/10/25 History Metoprolol Tartrate [Lopressor] 200 mg PO BID 06/10/25 06/10/25 History Pregabalin [Lyrica] 100 mg PO BID 06/10/25 06/10/25 History amLODIPine [Norvasc] 10 mg PO DAILY 06/10/25 06/10/25 History hydrALAZINE HCL [Apresoline] 25 mg PO TID 06/10/25 06/10/25 History Allergies Allergy/AdvReac Type Severity Reaction Status Date / Time verapamil AdvReac Unknown Verified 06/10/25 20:15 Physical Exam Vitals: Vital Signs Temp Pulse Resp BP Pulse Ox 06/11/25 09:23 98.2 F 06/11/25 08:34 71 18 151/75 97 06/11/25 05:59 100.5 F H 68 20 160/73 95 06/11/25 01:15 68 16 140/72 98 06/11/25 00:05 64 16 140/72 95 06/10/25 20:13 60 16 154/65 96 06/10/25 16:48 99.6 F 82 16 173/79 95 Intake and Output 06/10/25 06/11/25 06/11/25 22:59 06:59 14:59 Other: Weight 64.864 kg Head normocephalic Neck supple Lungs clear to auscultation bilaterally no wheezing or crackles Heart regular rate and rhythm S1-S2, no rub or gallop Abdomen is soft nontender nondistended positive bowel sounds no hepatosplenomegaly Extremities no edema Neuro alert and orientated to 3 Results CBC & Chem 7: 06/10/25 17:55 06/10/25 17:55 Labs: Abnormal Lab Results - Last 24 Hours (Table) 06/10/25 06/10/25 06/10/25 Range/Units 17:22 17:55 17:55 WBC 13.33 H (4.50-10.00) 10*3/uL RBC 3.99 L (4.40-5.60) 10*6/uL Hgb 12.6 L (13.0-17.0) g/dL Hct 36.8 L (39.6-50.0) % Immature Gran # 0.06 H (0.00-0.04) 10*3/uL Neutrophils # 12.38 H (1.80-7.70) 10*3/uL Lymphocytes # 0.26 L (0.90-5.00) 10*3/uL Eosinophils # 0.00 L (0.04-0.35) 10*3/uL Sodium 146 H (137-145) mmol/L Chloride 110 H (98-107) mmol/L Carbon Dioxide 21 L (22-30) mmol/L BUN 53 H (9-20) mg/dL Creatinine 2.09 H (0.66-1.25) mg/dL Glucose 185 H (74-99) mg/dL AST 115 H (17-59) U/L Creatine Kinase 4430 H* (55-170) U/L Troponin I (0.000-0.034) ng/mL Urine Protein 1+ H (Negative) Urine Ketones 1+ H (Negative) Urine Blood Large H (Negative) Ur Leukocyte Esterase Large H (Negative) Urine RBC 11 H (0-5) /hpf Urine WBC >182 H (0-5) /hpf Urine WBC Clumps Many H (None) /hpf Urine Bacteria Many H (None) /hpf Urine Mucus Rare H (None) /hpf 06/10/25 06/10/25 06/11/25 Range/Units 17:55 21:18 00:00 WBC (4.50-10.00) 10*3/uL RBC (4.40-5.60) 10*6/uL Hgb (13.0-17.0) g/dL Hct (39.6-50.0) % Immature Gran # (0.00-0.04) 10*3/uL Neutrophils # (1.80-7.70) 10*3/uL Lymphocytes # (0.90-5.00) 10*3/uL Eosinophils # (0.04-0.35) 10*3/uL Sodium (137-145) mmol/L Chloride (98-107) mmol/L Carbon Dioxide (22-30) mmol/L BUN (9-20) mg/dL Creatinine (0.66-1.25) mg/dL Glucose (74-99) mg/dL AST (17-59) U/L Creatine Kinase (55-170) U/L Troponin I 0.234 H* 0.319 H* 0.331 H* (0.000-0.034) ng/mL Urine Protein (Negative) Urine Ketones (Negative) Urine Blood (Negative) Ur Leukocyte Esterase (Negative) Urine RBC (0-5) /hpf Urine WBC (0-5) /hpf Urine WBC Clumps (None) /hpf Urine Bacteria (None) /hpf Urine Mucus (None) /hpf Assessment and Plan Assessment: Generalized weakness with falls Rhabdomyolysis Acute kidney injury Urinary tract infection Elevated troponins History of CHF History of essential hypertension History of prostate cancer DVT prophylaxis Lovenox. GI prophylax Protonix Cardiology and nephrology services consulted Patient started on IV antibiotics Urine and blood culture ordered 2D echo carotid Doppler ordered Repeat labs in a.m. Time with Patient: Greater than 30 (Greater than 60% of the total time spent in counseling and coordination of care)
[2025-06-11 10:39] LABS: African American GFR (CKD) 43 (>60 ml/min/1.73 sqM); Anion Gap 12 mmol/L; Blood Urea Nitrogen 50 mg/dL (9-20); Calcium 8.1 mg/dL (8.4-10.2); Carbon Dioxide 21 mmol/L (22-30); Chloride 110 mmol/L (98-107); Glucose 179 mg/dL (74-99); Non-African American GFR(CKD) 37 (>60 ml/min/1.73 sqM); Potassium 3.0 mmol/L (3.5-5.1); Sodium 143 mmol/L (137-145)
[2025-06-11] MEDS: POTASSIUM CHLORIDE ER 20 MEQ TAB.ER PO STA ×2 (11:50)
--- NOTE | 2025-06-11 13:09 | US ---
EXAMINATION TYPE: US carotid duplex BILAT DATE OF EXAM: 06/11/2025 COMPARISON: NONE CLINICAL INDICATION: Male, 85 years old with history of hx of fall, ?syncope; Poor historian Dizziness and weakness TECHNIQUE: Grayscale, color Doppler and spectral Doppler evaluation of the bilateral carotid systems and vertebral arteries. Indirect Doppler criteria was utilized. FINDINGS: EXAM MEASUREMENTS: RIGHT: Peak Systolic Velocity (PSV) cm/sec ----- Right CCA: 42.7 ----- Right ICA: 96.3 ----- Right ECA: 114.5 ICA/CCA ratio: 2.3 RIGHT: End Diastole cm/sec ----- Right CCA: 4.3 ----- Right ICA: 22.6 ----- Right ECA: 0.0 LEFT: Peak Systolic Velocity (PSV) cm/sec ----- Left CCA: 59.2 ----- Left ICA: 78.8 ----- Left ECA: 104.8 ICA/CCA ratio: 1.3 LEFT: End Diastole cm/sec ----- Left CCA: 7.8 ----- Left ICA: 16.7 ----- Left ECA: 0.0 VERTEBRALS (direction of flow): Right Vertebral: Antegrade Left Vertebral: unable to obtain Rhythm: Normal ROLLED SEAT TRIMMER NOTES: Plaque seen bilaterally, no elevated velocities. Bilateral wall thickening. Color Doppler imaging shows patency with blood flow throughout the carotid artery. Spectral waveforms are within normal limits. IMPRESSION: 1. No hemodynamically significant internal carotid artery stenosis on either side. 2. Unable to visualize the left vertebral artery. Criteria for Assigning % of Stenosis / Diameter reduction (Estimation based on the indirect measurements of the internal carotid artery velocities (ICA PSV). 1. Normal (no stenosis)=ICA PSV < 180 cm/s: ratio < 2.0: ICA EDV<40 cm/s. 2. Less than 50% stenosis=ICA PSV < 180 cm/s: ratio < 2.0: ICA EDV<40 cm/s. 3. 50 to 69% stenosis=ICA PSV of 180 to 230 cm/s: ration 2.0 ? 4.0: ICA EDV 40-100 cm/s. PSV 125-180 cm/sec and ICA/CCA PSV Ratio ? 2.0 is also consistent with 50-69% stenosis 4. Greater than 70% stenosis to near occlusion= ICA PSV > 230 cm/s: ratio > 4.0: ICA EDV > 100 cm/s. 5. Near occlusion= ICA PSV velocities may be low or undetectable: variable ratio and ICA EDV. 6. Total occlusion=unable to detect flow. [facility], Workstation: [facility], 06/11/2025 1:06 PM
--- NOTE | 2025-06-11 13:13 | US ---
EXAMINATION TYPE: US kidneys/renal and bladder DATE OF EXAM: 06/11/2025 COMPARISON: NONE CLINICAL INDICATION: Male, 85 years old with history of ABHISHEK; UTI. Bladder Hirsch. TECHNIQUE: Grayscale imaging of the bilateral kidneys and urinary bladder: FINDINGS: EXAM MEASUREMENTS: Right Kidney: 10.2 x 4.9 x 6.0 cm Left Kidney: 9.9 x 5.4 x 5.6 cm Right Kidney: Moderate to severe hydronephrosis. There is a upper to mid pole cyst measuring 3.4 cm. Left Kidney: Mosaicist notes: Inferior pole obscured by bowel gas. Hydronephrosis. Limited visual ization. Bladder: Hirsch seen Bilateral Jets not seen due to Hirsch IMPRESSION: 1. Moderate to severe right-sided hydronephrosis. 2. While the parent partner indicates hydronephrosis on the left as well, this is not clearly depicted o n the provided images. Consider short interval follow-up. 3. Hirsch catheter in place. [facility], , 06/11/2025 1:10 PM
--- NOTE | 2025-06-11 16:45 | P.NPCON ---
History of Present Illness - Reason for Consult acute renal failure - History of Present Illness Patient is an 85-year-old male with history of hypertension, CVA and prostatic cancer. Patient is admitted to the hospital due to a fall. He had been down for about 15 hours. He was confused when found by his daughter. Patient otherwise lives independently. No previous history of kidney disease Patient has chronic indwelling Hirsch catheter for about 1 year now. Serum creatinine was 2.0 on admission. Previous creatinine was 0.7 on 04/23/2024. CK was elevated at 4430. No significant hypotension noted Currently maintained on IV fluids Good urine output noted in Hirsch bag. 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, anuerysm, skin cancer, prostate cancer a shot q3 months History of Any Multi-Drug Resistant Organisms: None Reported Past Surgical History: Prostate Surgery Past Anesthesia/Blood Transfusion Reactions: No Reported Reaction Type of Cardiac Device: AICD Device Placement Date:: 2016 Past Psychological History: No Psychological Hx Reported Smoking Status: Former smoker Past Alcohol Use History: Rare Past Drug Use History: None Reported Medications and Allergies Home Medications Medication Instructions Recorded Confirmed Type Aspirin EC [Ecotrin Low Dose] 81 mg PO DAILY 11/03/23 06/10/25 History Valsartan [Diovan] 160 mg PO BID 11/03/23 06/10/25 History carBAMazepine [TEGretol] 200 mg PO TID 11/03/23 06/10/25 History Atorvastatin [Lipitor] 20 mg PO DAILY 06/10/25 06/10/25 History Darolutamide [Nubeqa] 600 mg PO BID 06/10/25 06/10/25 History Ferrous Sulfate [Feosol] 325 mg PO DAILY 06/10/25 06/10/25 History Furosemide [Lasix] 20 mg PO DAILY 06/10/25 06/10/25 History Metoprolol Tartrate [Lopressor] 200 mg PO BID 06/10/25 06/10/25 History Pregabalin [Lyrica] 100 mg PO BID 06/10/25 06/10/25 History amLODIPine [Norvasc] 10 mg PO DAILY 06/10/25 06/10/25 History hydrALAZINE HCL [Apresoline] 25 mg PO TID 06/10/25 06/10/25 History Allergies Allergy/AdvReac Type Severity Reaction Status Date / Time verapamil AdvReac Unknown Verified 06/10/25 20:15 Physical Exam Vitals: Vital Signs Temp Pulse Pulse Resp BP BP Pulse Ox 06/11/25 14:07 97.9 F 64 16 154/58 94 L 06/11/25 13:44 60 18 104/56 95 06/11/25 12:05 97.9 F 60 18 119/68 96 06/11/25 09:23 98.2 F 06/11/25 08:34 71 18 151/75 97 06/11/25 05:59 100.5 F H 68 20 160/73 95 06/11/25 01:15 68 16 140/72 98 06/11/25 00:05 64 16 140/72 95 06/10/25 20:13 60 16 154/65 96 06/10/25 16:48 99.6 F 82 16 173/79 95 Intake and Output 06/11/25 06/11/25 06/11/25 06:59 14:59 22:59 Other: Voiding Method Indwelling Catheter Weight 64.864 kg Patient is sleeping but arousable No acute distress Examination of the heart S1 and S2 Examination of the lungs bilateral breath sounds are heard Abdomen is soft nontender Examination of lower extremities shows no evidence of edema IMPOSER exam shows patient is able to move all 4 extremities. Results - Lab Results Most recent lab results Calcium 8.1 mg/dL (8.4-10.2) L 06/11/25 09:56 Phosphorus 2.7 mg/dL (2.5-4.5) 06/10/25 17:55 Magnesium 2.2 mg/dL (1.6-2.3) 06/10/25 17:55 06/10/25 17:55 06/11/25 09:56 Assessment and Plan Assessment: 1. Acute kidney injury, obstructive and ATN. Rhabdomyolysis contributing to acute kidney injury, although it is more typical with higher levels of CK. UA is suggestive of myoglobinuria. Currently with indwelling Hirsch catheter. Maintained on IV fluids. Valsartan on hold. CT scan showed moderate to severe right hydronephrosis as well as possible left hydronephrosis. 2. Status post fall 3. History of prostatic cancer 4. Chronic indwelling Hirsch catheter, most likely for neurogenic bladder 5. Hypertension, maintained on valsartan, hydralazine, amlodipine and Lopressor Plan: Increase IV fluids to 100 cc an hour Consult urology Continue with indwelling Hirsch catheter Agree with holding valsartan for now. Blood pressure is on the lower side currently. Repeat labs in a.m. Replace potassium Thank you for the consultation. We will continue to follow the patient with you during his hospitalization.
--- NOTE | 2025-06-11 20:29 | CA ---
Transthoracic Echo Report Name: Brad Mortensen Age: 85 Gender: M : 1940 Exam Date: 06/11/2025 10:22 Exam Location: [facility] Ht (in): 67 Wt (lb): 143 Ordering Physician: Christos Patterson MD Attending/Referring Phys: Crystalizer Operator Bianka Gtz RDCS Procedure CPT: Indications: elevated troponins, Non-ST elevation (NSTEMI) myocardial infarction Cardiac Hx: Technical Quality: Fair Contrast 1: Total Dose (mL): Contrast 2: Total Dose (mL): MEASUREMENTS (Male / Female) Normal Values 2D ECHO LV Diastolic Diameter PLAX 4.4 cm 4.2 - 5.9 / 3.9 - 5.3 cm LV Systolic Diameter PLAX 3.3 cm IVS Diastolic Thickness 1.2 cm 0.6 - 1.0 / 0.6 - 0.9 cm LVPW Diastolic Thickness 1.3 cm 0.6 - 1.0 / 0.6 - 0.9 cm LV Relative Wall Thickness 0.6 RV Internal Dim ED PLAX 2.9 cm LA Systolic Diameter LX 3.4 cm 3.0 - 4.0 / 2.7 - 3.8 cm LV Diastolic Volume MOD BP 119.7 cm??? 67 - 155 / 56 - 104 cm??? LV Systolic Volume MOD BP 64.7 cm??? - 58 / 19 - 49 cm??? LV Ejection Fraction MOD BP 45.9 % >= 55 % LV Cardiac Index MOD BP 2226.7 cm???/min???m??? LV Diastolic Volume MOD 4C 108.1 cm??? LV Systolic Volume MOD 4C 67.4 cm??? LV Ejection Fraction MOD 4C 37.7 % LV Cardiac Index MOD 4C 1651.7 cm???/min???m??? LV Diastolic Length 4C 8.1 cm LV Systolic Length 4C 7.7 cm LV Diastolic Volume MOD 2C 125.8 cm??? LV Systolic Volume MOD 2C 61.1 cm??? LV Ejection Fraction MOD 2C 51.4 % LV Cardiac Index MOD 2C 2619.7 cm???/min???m??? LV Diastolic Length 2C 8.6 cm LV Systolic Length 2C 7.5 cm LA Volume 37.5 cm??? 18 - 58 / 22 - 52 cm??? LA Volume Index 21.4 cm???/m??? 16 - 28 cm???/m??? Ascending Aorta Diameter 3.7 cm M-MODE Aortic Root Diameter MM 3.3 cm AV Cusp Separation MM 2.3 cm DOPPLER AV Peak Velocity 415.5 cm/s AV Peak Gradient 69.1 mmHg AV Mean Velocity 249.0 cm/s AV Mean Gradient 31.8 mmHg AV Velocity Time Integral 89.6 cm AI Peak Velocity 358.2 cm/s AI Peak Gradient 51.3 mmHg AI Pressure Half Time 519.0 ms LVOT Peak Velocity 318.8 cm/s LVOT Peak Gradient 40.7 mmHg LVOT Velocity Time Integral 69.5 cm MV Peak Velocity 107.1 cm/s MV Peak Gradient 4.6 mmHg MV Mean Velocity 58.1 cm/s MV Mean Gradient 1.6 mmHg MV Velocity Time Integral 38.3 cm MV Area PHT 0.9 cm??? MR Peak Velocity 616.5 cm/s MR Peak Gradient 152.0 mmHg Mitral E Point Velocity 70.2 cm/s Mitral A Point Velocity 97.1 cm/s Mitral E to A Ratio 0.7 MV Deceleration Time 224.6 ms TR Peak Velocity 240.7 cm/s TR Peak Gradient 23.2 mmHg Right Ventricular Systolic Press 27.0 mmHg FINDINGS Left Ventricle Left ventricular ejection fraction is estimated at 40-45%. Mildly increased septal wall thickness. Mildly increased left ventricular systolic volume. Mildly decreased left ventricular ejection fraction. the apical septal region is akinetic, increased LVOT velocities due to sigmoid septum, LVOT obstruction mean pressure gradient 32mmhg. Right Ventricle Normal right ventricular size and function. Right ventricular systolic pressure within normal limits. Right Atrium Normal right atrial size. No right atrial thrombus or mass seen. Defibrillator /pacemaker wire visualized. Left Atrium Normal left atrial size. No left atrial thrombus or mass present. Mitral Valve Mild thickening/calcification of the anterior mitral valve leaflet. Mitral annular calcification. [id number] mitral regurgitation. Aortic Valve Trileaflet aortic valve. No aortic stenosis. LVOT obstruction . Mild aortic regurgitation. Tricuspid Valve Structurally normal tricuspid valve. Trace tricuspid regurgitation. Pulmonic Valve Pulmonic valve not well visualized. No pulmonic stenosis. No pulmonic regurgitation. Pericardium Minimal pericardial effusion. Aorta Normal size aortic root and proximal ascending aorta. CONCLUSIONS LVEF 40 to 45% Grade 1 diastolic function Distal inferoseptal and apical septal wall hypokinesia Dynamic LVOT obstruction with MELANY with resting peak gradient of 40 mmHg. PPM wire noticed RA and RV Mild aortic regurgitation, moderate eccentric mitral regurgitation Previewed by: Dr Todd Clemons (Electronically Signed) Final Date: 11 June 2025 20:28
[2025-06-12 07:13] LABS: Basophils # (A) 0.01 10*3/uL (0.00-0.10); Basophils % (A) 0.2 %; Eosinophils # (A) 0.07 10*3/uL (0.04-0.35); Eosinophils % (A) 1.3 %; HCT 28.4 % (39.6-50.0); Lymphocytes # (A) 0.37 10*3/uL (0.90-5.00); Lymphocytes % (A) 7.0 %; MCH 31.9 pg (27.0-32.0); MCHC 34.2 g/dL (32.0-37.0); MCV 93.4 fL (80.0-97.0); Monocytes # (A) 0.42 10*3/uL (0.20-1.00); Monocytes % (A) 8.0 %; Neutrophils # (A) 4.37 10*3/uL (1.80-7.70); Neutrophils % (A) 83.1 %; Platelet Count 116 10*3/uL (140-440); RBC 3.04 10*6/uL (4.40-5.60); RDW 14.2 % (11.5-14.5); WBC 5.26 10*3/uL (4.50-10.00)
[2025-06-12 07:23] LABS: ALT 29 U/L (4-49); AST 44 U/L (17-59); African American GFR (CKD) 45 (>60 ml/min/1.73 sqM); Albumin 2.7 g/dL (3.5-5.0); Alkaline Phosphatase 48 U/L (38-126); Anion Gap 7 mmol/L; Blood Urea Nitrogen 44 mg/dL (9-20); Calcium 7.3 mg/dL (8.4-10.2); Carbon Dioxide 20 mmol/L (22-30); Chloride 116 mmol/L (98-107); Creatine Kinase 564 U/L (55-170); Glucose 144 mg/dL (74-99); Magnesium 1.8 mg/dL (1.6-2.3); Non-African American GFR(CKD) 39 (>60 ml/min/1.73 sqM); Potassium 3.4 mmol/L (3.5-5.1); Sodium 143 mmol/L (137-145); Total Protein 5.2 g/dL (6.3-8.2)
[2025-06-12 07:30] LABS: HGB 9.7 g/dL (13.0-17.0)
[2025-06-12] MEDS ORDERED: Potassium Replacement Protocol 1 EACH MISC MISCELLANE PRN ×2 (08:33→11:27)
[2025-06-12] MEDS: ENOXAPARIN 40 MG/0.4 ML SYRINGE SQ SCH (08:33)
[2025-06-12] MEDS: POTASSIUM CHLORIDE ER 20 MEQ TAB.ER PO ONE (08:53)
--- NOTE | 2025-06-12 10:33 | P.GSCN ---
History of Present Illness Consult date: 06/12/25 History of present illness: 85 yo male brought to the er by his family after being found down. We were asked to see because of bilateral hydronephrosis. The patient has known prostate cancer and is treated by a urologist in [place]. He is on q 3 mos lhrh injections His cr has gone form 2 to 1.5 with hydration. He had an us showing bilateral hydronephrosis. He had an mri 11/10 identifyiing metastatic disease and bilateral hydronephrosis Review of Systems All systems: negative - Constitutional Denies fever, Denies weight loss - EENT Eyes: denies blurred vision Ears, nose, mouth and throat: Denies dysphagia - Cardiovascular Denies chest pain, Denies shortness of breath - Respiratory Denies cough, Denies 7 - Gastrointestinal Reports as per HPI - Genitourinary Denies dysuria, Denies hematuria - Integumentary Denies rash, Denies unusual bruising - Neurological Denies headaches, Denies syncope - Hematologic/Lymphatic Denies easy bleeding, Denies easy bruising 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, anuerysm, skin cancer, prostate cancer a shot q3 months History of Any Multi-Drug Resistant Organisms: None Reported Past Surgical History: Prostate Surgery Past Anesthesia/Blood Transfusion Reactions: No Reported Reaction Type of Cardiac Device: AICD Device Placement Date:: 2016 Past Psychological History: No Psychological Hx Reported Smoking Status: Former smoker Past Alcohol Use History: Rare Past Drug Use History: None Reported Medications and Allergies Home Medications Medication Instructions Recorded Confirmed Type Aspirin EC [Ecotrin Low Dose] 81 mg PO DAILY 11/03/23 06/10/25 History Valsartan [Diovan] 160 mg PO BID 11/03/23 06/10/25 History carBAMazepine [TEGretol] 200 mg PO TID 11/03/23 06/10/25 History Atorvastatin [Lipitor] 20 mg PO DAILY 06/10/25 06/10/25 History Darolutamide [Nubeqa] 600 mg PO BID 06/10/25 06/10/25 History Ferrous Sulfate [Feosol] 325 mg PO DAILY 06/10/25 06/10/25 History Furosemide [Lasix] 20 mg PO DAILY 06/10/25 06/10/25 History Metoprolol Tartrate [Lopressor] 200 mg PO BID 06/10/25 06/10/25 History Pregabalin [Lyrica] 100 mg PO BID 06/10/25 06/10/25 History amLODIPine [Norvasc] 10 mg PO DAILY 06/10/25 06/10/25 History hydrALAZINE HCL [Apresoline] 25 mg PO TID 06/10/25 06/10/25 History Allergies Allergy/AdvReac Type Severity Reaction Status Date / Time verapamil AdvReac Unknown Verified 06/10/25 20:15 Surgical - Exam Vital Signs Temp Pulse Resp BP Pulse Ox 99.6 F 82 16 173/79 95 06/10/25 16:48 06/10/25 16:48 06/10/25 16:48 06/10/25 16:48 06/10/25 16:48 Results - Labs 06/12/25 05:45 06/12/25 05:45 Abnormal Lab Results - Last 24 Hours (Table) 06/11/25 06/12/25 06/12/25 Range/Units 09:56 05:45 05:45 RBC 3.04 L (4.40-5.60) 10*6/uL Hgb 9.7 L D (13.0-17.0) g/dL Hct 28.4 L (39.6-50.0) % Plt Count 116 L (140-440) 10*3/uL MPV 12.3 H (9.5-12.2) fL Lymphocytes # 0.37 L (0.90-5.00) 10*3/uL Potassium 3.0 L 3.4 L (3.5-5.1) mmol/L Chloride 110 H 116 H (98-107) mmol/L Carbon Dioxide 21 L 20 L (22-30) mmol/L BUN 50 H 44 H (9-20) mg/dL Creatinine 1.65 H 1.59 H (0.66-1.25) mg/dL Glucose 179 H 144 H (74-99) mg/dL Calcium 8.1 L 7.3 L (8.4-10.2) mg/dL Creatine Kinase 564 H (55-170) U/L Total Protein 5.2 L (6.3-8.2) g/dL Albumin 2.7 L (3.5-5.0) g/dL Microbiology - Last 24 Hours (Table) 06/10/25 18:46 Blood Culture - Preliminary Blood Diabetes panel 06/11/25 06/12/25 Range/Units 09:56 05:45 Sodium 143 143 (137-145) mmol/L Potassium 3.0 L 3.4 L (3.5-5.1) mmol/L Chloride 110 H 116 H (98-107) mmol/L Carbon Dioxide 21 L 20 L (22-30) mmol/L BUN 50 H 44 H (9-20) mg/dL Creatinine 1.65 H 1.59 H (0.66-1.25) mg/dL Glucose 179 H 144 H (74-99) mg/dL Calcium 8.1 L 7.3 L (8.4-10.2) mg/dL AST 44 (17-59) U/L ALT 29 (4-49) U/L Alkaline Phosphatase 48 (38-126) U/L Total Protein 5.2 L (6.3-8.2) g/dL Albumin 2.7 L (3.5-5.0) g/dL Calcium panel 06/11/25 06/12/25 Range/Units 09:56 05:45 Calcium 8.1 L 7.3 L (8.4-10.2) mg/dL Albumin 2.7 L (3.5-5.0) g/dL Pituitary panel 06/11/25 06/12/25 Range/Units 09:56 05:45 Sodium 143 143 (137-145) mmol/L Potassium 3.0 L 3.4 L (3.5-5.1) mmol/L Chloride 110 H 116 H (98-107) mmol/L Carbon Dioxide 21 L 20 L (22-30) mmol/L BUN 50 H 44 H (9-20) mg/dL Creatinine 1.65 H 1.59 H (0.66-1.25) mg/dL Glucose 179 H 144 H (74-99) mg/dL Calcium 8.1 L 7.3 L (8.4-10.2) mg/dL Adrenal panel 06/11/25 06/12/25 Range/Units 09:56 05:45 Sodium 143 143 (137-145) mmol/L Potassium 3.0 L 3.4 L (3.5-5.1) mmol/L Chloride 110 H 116 H (98-107) mmol/L Carbon Dioxide 21 L 20 L (22-30) mmol/L BUN 50 H 44 H (9-20) mg/dL Creatinine 1.65 H 1.59 H (0.66-1.25) mg/dL Glucose 179 H 144 H (74-99) mg/dL Calcium 8.1 L 7.3 L (8.4-10.2) mg/dL Total Bilirubin 0.3 (0.2-1.3) mg/dL AST 44 (17-59) U/L ALT 29 (4-49) U/L Alkaline Phosphatase 48 (38-126) U/L Total Protein 5.2 L (6.3-8.2) g/dL Albumin 2.7 L (3.5-5.0) g/dL - Imaging US - kidney/bladder: report reviewed, image reviewed Assessment and Plan Assessment: Impression: prostate ca on lhrh therapy. 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 arf/crf Recommendations; since the hydro is chronic and the patient has urologist in [place] there is nothing that I recommend for this hospitaliztion. He should continue to follow with his urologist in [place]. This has been discussed with the patient and his daughter. The patient is satisfied with his urologist therefore should follow there.
--- NOTE | 2025-06-12 11:09 | P.PN ---
Subjective Progress Note Date: 06/12/25 following for ABHISHEK patient seen today, resting in bed, no new complaints. maintenance IVF noted @ 100 ml/hr Objective - Vital Signs Vital signs: Vital Signs Temp 98.5 F 06/12/25 07:55 Pulse 60 06/12/25 07:55 Resp 18 06/12/25 07:55 BP 152/72 06/12/25 07:55 Pulse Ox 98 06/12/25 07:55 FiO2 Intake & Output 06/11/25 06/12/25 06/12/25 18:59 06:59 18:59 Intake Total 180 248 Output Total 700 200 Balance -520 -200 248 Weight 64.864 kg 64.5 kg 64.5 kg Intake: IV 10 Invasive Line 2 10 Oral 180 238 Output: Urine 700 200 Other: Voiding Method Indwelling Catheter Indwelling Catheter Indwelling Catheter - Exam Patient is sleeping but arousable No acute distress Examination of the heart S1 and S2 Examination of the lungs bilateral breath sounds are heard Abdomen is soft nontender Examination of lower extremities shows no evidence of edema GLOBAL CATEGORY MANAGER exam shows patient is able to move all 4 extremities. - Labs CBC & Chem 7: 06/12/25 05:45 06/12/25 05:45 Labs: Abnormal Lab Results - Last 24 Hours (Table) 06/12/25 06/12/25 Range/Units 05:45 05:45 RBC 3.04 L (4.40-5.60) 10*6/uL Hgb 9.7 L D (13.0-17.0) g/dL Hct 28.4 L (39.6-50.0) % Plt Count 116 L (140-440) 10*3/uL MPV 12.3 H (9.5-12.2) fL Lymphocytes # 0.37 L (0.90-5.00) 10*3/uL Potassium 3.4 L (3.5-5.1) mmol/L Chloride 116 H (98-107) mmol/L Carbon Dioxide 20 L (22-30) mmol/L BUN 44 H (9-20) mg/dL Creatinine 1.59 H (0.66-1.25) mg/dL Glucose 144 H (74-99) mg/dL Calcium 7.3 L (8.4-10.2) mg/dL Creatine Kinase 564 H (55-170) U/L Total Protein 5.2 L (6.3-8.2) g/dL Albumin 2.7 L (3.5-5.0) g/dL Microbiology - Last 24 Hours (Table) 06/10/25 17:22 Urine Culture - Preliminary Urine,Voided Gram Neg Bacilli 06/10/25 18:46 Blood Culture - Preliminary Blood Assessment and Plan Assessment: 1. Acute kidney injury, obstructive and ATN. Rhabdomyolysis contributing to acute kidney injury, although it is more typical with higher levels of CK. UA is suggestive of myoglobinuria. Currently with indwelling Hirsch catheter. Maintained on IV fluids. Valsartan on hold. CT scan showed moderate to severe right hydronephrosis as well as possible left hydronephrosis. 2. Status post fall 3. History of prostatic cancer 4. Chronic indwelling Hirsch catheter, most likely for neurogenic bladder 5. Hypertension, maintained on valsartan, hydralazine, amlodipine and Lopressor Plan: improved renal function cr. down to 1.5, can discontinue IV fluids , encourage PO hydration Urology consulted, chronic Nicholson and no plans for intervention Continue with indwelling Hirsch catheter Agree with holding valsartan for now. Repeat labs in a.m. Replace potassium as needed
--- NOTE | 2025-06-12 11:28 | P.PN ---
Subjective Progress Note Date: 06/12/25 Brad Mortensen is a 85-year-old male patient who presented to the ER after being found on the ground by his bed for approximately 48 hours. Patient apparently was found by his family in a somewhat confused state lying next to his bed. Denies loss of consciousness. Patient has a past medical history of heart failure, hypertension, prostate cancer and ex-smoker. Testing in the emergency room revealed no acute intracranial process seen on head CT. EKG showing sinus rhythm heart rate 75. Chest x-ray completed showing COPD with suspected pulmonary arterial hypertension and trace left pleural effusion with some adjacent atelectasis and or consolidation persist. Lab work completed showing white blood cell 13.33, hemoglobin 12.6, sodium 146, creatinine 2.09 bun 53. Creatinine kinase 4430. Troponin 0.234, 0.319 and 0.331. UA positive for urinary tract infection drug screen negative. At this time patient will be admitted patient started on IV antibiotics for urinary tract infection. Cardio logy services consulted for positive troponins. 2D echo ordered nephrology services consulted. Current vital signs temp 100.5, heart rate 70-71, respiratory rate 18, blood pressure 151/75 with pulse ox of 97% on room air. Patient denies chest pain or shortness of breath. Patient denies nausea vo miting or diarrhea. Patient denies any urinary burning or frequency On 06/12/2025 patient is alert and oriented x 3 resting comfortably in bed. Bilateral hydronephrosis seen on abdominal ultrasound urology services were completed. Per urology this appears chronic and the patient follows with uro logist in [place] no further recommendations per urology. Per cardiology pacer to be interrogated. Creatinine improving to 1.59 bun 44. Creatinine kinase significantly improving to 564. Patient denies chest pain or shortness of breath. Patient denies nausea vomiting or diarrhea. Patient denies any urinary burning or frequency Objective - Vital Signs Vital signs: Vital Signs Temp 98.5 F 06/12/25 07:55 Pulse 60 06/12/25 07:55 Resp 18 06/12/25 07:55 BP 152/72 06/12/25 07:55 Pulse Ox 98 06/12/25 07:55 FiO2 Intake & Output 06/11/25 06/12/25 06/12/25 18:59 06:59 18:59 Intake Total 180 248 Output Total 700 200 675 Balance -520 -200 -427 Weight 64.864 kg 64.5 kg 64.5 kg Intake: IV 10 Invasive Line 2 10 Oral 180 238 Output: Urine 700 200 675 Other: Voiding Method Indwelling Catheter Indwelling Catheter Indwelling Catheter - Exam Head normocephalic Neck supple Lungs clear to auscultation bilaterally no wheezing or crackles Heart regular rate and rhythm S1-S2, no rub or gallop Abdomen is soft nontender nondistended positive bowel sounds no hepatosplenomegaly Extremities no edema Neuro alert and orientated to 3 - Labs CBC & Chem 7: 06/12/25 05:45 06/12/25 05:45 Labs: Abnormal Lab Results - Last 24 Hours (Table) 06/12/25 06/12/25 Range/Units 05:45 05:45 RBC 3.04 L (4.40-5.60) 10*6/uL Hgb 9.7 L D (13.0-17.0) g/dL Hct 28.4 L (39.6-50.0) % Plt Count 116 L (140-440) 10*3/uL MPV 12.3 H (9.5-12.2) fL Lymphocytes # 0.37 L (0.90-5.00) 10*3/uL Potassium 3.4 L (3.5-5.1) mmol/L Chloride 116 H (98-107) mmol/L Carbon Dioxide 20 L (22-30) mmol/L BUN 44 H (9-20) mg/dL Creatinine 1.59 H (0.66-1.25) mg/dL Glucose 144 H (74-99) mg/dL Calcium 7.3 L (8.4-10.2) mg/dL Creatine Kinase 564 H (55-170) U/L Total Protein 5.2 L (6.3-8.2) g/dL Albumin 2.7 L (3.5-5.0) g/dL Microbiology - Last 24 Hours (Table) 06/10/25 17:22 Urine Culture - Preliminary Urine,Voided Gram Neg Bacilli 06/10/25 18:46 Blood Culture - Preliminary Blood Assessment and Plan Assessment: Generalized weakness with falls Rhabdomyolysis Acute kidney injury Bilateral hydronephrosis Urinary tract infection Elevated troponins History of CHF History of essential hypertension History of prostate cancer DVT prophylaxis Lovenox. GI prophylax Protonix Cardiology and nephrology services consulted Patient started on IV antibiotics Urine and blood culture ordered 2D echo carotid Doppler ordered Repeat labs in a.m.
--- NOTE | 2025-06-12 13:37 | P.PN ---
Subjective HISTORY OF PRESENT ILLNESS: Patient is a 85-year-old male with history of CVA in 2022, LBBB, hypertrophic obstructive cardiomyopathy status post AICD, hypertension and hyperlipidemia is admitted to the hospital for rhabdomyolysis secondary to unwitnessed fall with unknown downtime. As per the ER note, patient was found confused laying on the floor next to his bed yesterday afternoon as noticed by his family members. Patient reports that he does not recall how he fell on the floor and the most recent event he recalls is his grandson helping him get up from the floor and eventually he was brought to the ER for further evaluation. Patient denies syncopal or presyncopal episodes before the fall event. He denies chest pain, shortness of breath. He lives alone at home and is generally compliant with his medications. However he reports that for the last 4 to 5 days he has not been taking his medications and is not eating his meal well citing family issues. He normally uses a walker for ambulation because of his right sided weakness due to stroke in 2022. He reports that he has had falls in the past secondary to imbalance especially whenever he turns around too quickly. During his previous falls he denies losing consciousness. Former smoker, quit 30 years ago. His primary finance specialist is Dr. Carlos Fuller. His most recent echocardiogram in 2022 shows LVEF of 40 to 45%, hypertrophic obstructive cardiomyopathy. Labs and images during this admission: WBC 13.3, hemoglobin 12.6, sodium 146, potassium 3.9, BUN 53, creatinine 2.09, magnesium 2.2, creatinine kinase 4430, troponin I 0.234, 0.319, 0.331 CT brain shows no evidence of acute or subacute stroke or mass Chest x-ray shows AICD with trace pleural effusion. EKG shows normal sinus rhythm with left bundle branch block which is old as compared with previous EKG from 2022. No new ST-T wave changes noted. UDS is negative 06/12/2025 Patient examined this morning at bedside. Patient currently denies chest pain or pressure. He denies shortness of breath. Vital signs are stable. Echocardiogram completed revealing ejection fraction 40 to 45%,, distal inferior septal and apical septal wall hypokinesia, dynamic LVOT obstruction with MELANY and resting peak gradient of 40 mmHg, mild aortic regurgitation, moderate eccentric mitral regurgitation PHYSICAL EXAM: VITAL SIGNS: Reviewed. GENERAL: Well-developed in no acute distress. NECK: Supple. No JVD or thyromegaly LUNGS: Respirations even and unlabored. Lungs essentially clear to auscultation bilaterally. HEART: Regular rate and rhythm. S1 and S2 heard. EXTREMITIES: Normal range of motion. No clubbing or cyanosis. Peripheral pulses intact. No lower extremity edema ASSESSMENT: #Rhabdomyolysis secondary to unknown downtime secondary to fall (Mechanical versus syncopal), rule out cardiac cause #Acute kidney injury secondary to rhabdomyolysis #Elevated troponin likely secondary to NSTEMI type II NE #Leukocytosis likely reactive #Hypovolemic hyponatremia #History of hypertrophic obstructive cardiomyopathy status post AICD #Left bundle branch block #Hypertension PLAN: Continue current cardiac medications including amlodipine, aspirin, Lipitor, Lasix, hydralazine, metoprolol Valsartan remains on hold secondary to ABHISHEK. Continue to monitor kidney function Awaiting AICD interrogation Further recommendations pending patient course Patient to follow-up postdischarge with his finance specialist at [facility] Nurse practitioner note has been reviewed by physician. Signing provider agrees with the documented findings, assessment, and plan of care documented by BULWARK CARPENTER as a scribe. Objective - Vital Signs Vital signs: Vital Signs Temp 98 F 06/12/25 12:00 Pulse 60 06/12/25 12:00 Resp 17 06/12/25 12:00 BP 101/56 06/12/25 12:00 Pulse Ox 96 06/12/25 12:00 FiO2 Intake & Output 06/11/25 06/12/25 06/12/25 18:59 06:59 18:59 Intake Total 180 248 Output Total 700 200 675 Balance -520 -200 -427 Weight 64.864 kg 64.5 kg 64.5 kg Intake: IV 10 Invasive Line 2 10 Oral 180 238 Output: Urine 700 200 675 Other: Voiding Method Indwelling Catheter Indwelling Catheter Indwelling Catheter - Labs CBC & Chem 7: 06/12/25 05:45 06/12/25 05:45 Labs: Abnormal Lab Results - Last 24 Hours (Table) 06/12/25 06/12/25 Range/Units 05:45 05:45 RBC 3.04 L (4.40-5.60) 10*6/uL Hgb 9.7 L D (13.0-17.0) g/dL Hct 28.4 L (39.6-50.0) % Plt Count 116 L (140-440) 10*3/uL MPV 12.3 H (9.5-12.2) fL Lymphocytes # 0.37 L (0.90-5.00) 10*3/uL Potassium 3.4 L (3.5-5.1) mmol/L Chloride 116 H (98-107) mmol/L Carbon Dioxide 20 L (22-30) mmol/L BUN 44 H (9-20) mg/dL Creatinine 1.59 H (0.66-1.25) mg/dL Glucose 144 H (74-99) mg/dL Calcium 7.3 L (8.4-10.2) mg/dL Creatine Kinase 564 H (55-170) U/L Total Protein 5.2 L (6.3-8.2) g/dL Albumin 2.7 L (3.5-5.0) g/dL Microbiology - Last 24 Hours (Table) 06/10/25 17:22 Urine Culture - Preliminary Urine,Voided Gram Neg Bacilli 06/10/25 18:46 Blood Culture - Preliminary Blood
[2025-06-13 09:44] LABS: Basophils # (A) 0.01 X 10*3/uL (0.00-0.10); Basophils % (A) 0.2 %; Eosinophils # (A) 0.26 X 10*3/uL (0.04-0.35); Eosinophils % (A) 4.2 %; HCT 28.6 % (39.6-50.0); HGB 9.3 g/dL (13.0-17.0); Immature Grans, Automated 0.50 %; Lymphocytes # (A) 0.56 X 10*3/uL (0.90-5.00); Lymphocytes % (A) 9.0 %; MCH 30.8 pg (27.0-32.0); MCHC 32.5 g/dL (32.0-37.0); MCV 94.7 FL (80.0-97.0); Monocytes # (A) 0.59 X 10*3/uL (0.20-1.00); Monocytes % (A) 9.4 %; NRBC Per 100 WBC 0 X 10*3/uL (0.00-0.01); Neutrophils # (A) 4.80 X 10*3/uL (1.80-7.70); Neutrophils % (A) 76.7 %; Platelet Count 125 X 10*3/uL (140-440); RBC 3.02 X 10*6/uL (4.40-5.60); RDW 14.4 % (11.5-14.5); WBC 6.25 X 10*3/uL (4.50-10.00)
--- NOTE | 2025-06-13 09:57 | P.PN ---
Subjective Progress Note Date: 06/13/25 Brad Mortensen is a 85-year-old male patient who presented to the ER after being found on the ground by his bed for approximately 48 hours. Patient apparently was found by his family in a somewhat confused state lying next to his bed. Denies loss of consciousness. Patient has a past medical history of heart failure, hypertension, prostate cancer and ex-smoker. Testing in the emergency room revealed no acute intracranial process seen on head CT. EKG showing sinus rhythm heart rate 75. Chest x-ray completed showing COPD with suspected pulmonary arterial hypertension and trace left pleural effusion with some adjacent atelectasis and or consolidation persist. Lab work completed showing white blood cell 13.33, hemoglobin 12.6, sodium 146, creatinine 2.09 bun 53. Creatinine kinase 4430. Troponin 0.234, 0.319 and 0.331. UA positive for urinary tract infection drug screen negative. At this time patient will be admitted patient started on IV antibiotics for urinary tract infection. Cardi ology services consulted for positive troponins. 2D echo ordered nephrology services consulted. Current vital signs temp 100.5, heart rate 70-71, respiratory rate 18, blood pressure 151/75 with pulse ox of 97% on room air. Patient denies chest pain or shortness of breath. Patient denies nausea v omiting or diarrhea. Patient denies any urinary burning or frequency On 06/12/2025 patient is alert and oriented x 3 resting comfortably in bed. Bilateral hydronephrosis seen on abdominal ultrasound urology services were completed. Per urology this appears chronic and the patient follows with ologist in [place] no further recommendations per urology. Per cardiology pacer to be interrogated. Creatinine improving to 1.59 bun 44. Creatinine kinase significantly improving to 564. Patient denies chest pain or shortness of breath. Patient denies nausea vomiting or diarrhea. Patient denies any urinary burning or frequency On 06/13/2025 patient was seen and examined on the medical floor he is alert and oriented x 3 in no apparent distress there is no fever or chills no headache or dizziness no chest pain no shortness of breath no cough no nausea or vomiting no abdominal pain no diarrhea no urinary symptoms. Vital exam reveals a temperature of 98.2 pulse 68 respiration 16 blood pressure 128/65 pulse ox 97% on room air white blood count is 6.25 hemoglobin 9.3 platelet count 125 Objective - Vital Signs Vital signs: Vital Signs Temp 98.1 F 06/13/25 08:00 Pulse 62 06/13/25 08:00 Resp 16 06/13/25 08:00 BP 151/66 06/13/25 08:00 Pulse Ox 93 L 06/13/25 08:00 FiO2 Intake & Output 06/12/25 06/13/25 06/13/25 18:59 06:59 18:59 Intake Total 248 Output Total 975 1000 Balance -727 -1000 Weight 64.5 kg 65.2 kg Intake: IV 10 Invasive Line 2 10 Oral 238 Output: Urine 975 1000 Other: Voiding Method Indwelling Catheter Indwelling Catheter # Bowel Movements 1 - Exam In general patient is alert and oriented x 3 in no distress HEENT head normocephalic and atraumatic Neck is supple no JVD no goiter no lymphadenopathy no carotid bruit Chest examination is clear to auscultation no crackles no wheezing Cardiac exam reveals regular heart sounds S1 and S2 no gallops no murmurs Abdomen is soft nontender no organomegaly with normal bowel sounds Extremity exam reveals no edema no cyanosis or clubbing Neurological examination reveals no gross focal deficits - Labs CBC & Chem 7: 06/13/25 04:20 06/12/25 05:45 Labs: Abnormal Lab Results - Last 24 Hours (Table) 06/13/25 Range/Units 04:20 RBC 3.02 L (4.40-5.60) X 10*6/uL Hgb 9.3 L (13.0-17.0) g/dL Hct 28.6 L (39.6-50.0) % Plt Count 125 L (140-440) X 10*3/uL Lymphocytes # 0.56 L (0.90-5.00) X 10*3/uL Microbiology - Last 24 Hours (Table) 06/10/25 18:46 Blood Culture - Preliminary Blood 06/10/25 17:22 Urine Culture - Preliminary Urine,Voided Gram Neg Bacilli Assessment and Plan Plan: Generalized weakness with falls Rhabdomyolysis Acute kidney injury Bilateral hydronephrosis Urinary tract infection Elevated troponins History of CHF History of essential hypertension History of prostate cancer DVT prophylaxis Lovenox. GI prophylax Protonix Cardiology and nephrology services consulted Patient started on IV antibiotics Urine and blood culture ordered 2D echo carotid Doppler ordered Repeat labs in a.m.
[2025-06-13 09:58] LABS: ALT 30 U/L (10-49); AST 34 U/L (14-35); Albumin 2.9 g/dL (3.8-4.9); Albumin/Globulin Ratio 1.45 Ratio (1.60-3.17); Alkaline Phosphatase 43 U/L (41-126); Anion Gap 9.00 mmol/L (4.00-12.00); BUN/Creat Ratio 23.69 Ratio (12.00-20.00); Blood Urea Nitrogen 30.8 mg/dL (9.0-27.0); Calcium 6.9 mg/dL (8.7-10.3); Carbon Dioxide 19.0 mmol/L (21.6-31.8); Chloride 114 mmol/L (96-109); Globulin 2.0 g/dL (1.6-3.3); Glucose 116 mg/dL (70-110); Potassium 3.7 mmol/L (3.5-5.5); Sodium 142 mmol/L (135-145); Total Protein 4.9 g/dL (6.2-8.2)
--- NOTE | 2025-06-13 11:07 | P.PN ---
Subjective Progress Note Date: 06/13/25 following for ABHISHEK patient seen today, resting in bed, no new complaints. maintenance IVF noted @ 100 ml/hr , tolerating PO intake. Objective - Vital Signs Vital signs: Vital Signs Temp 98.1 F 06/13/25 08:00 Pulse 62 06/13/25 08:00 Resp 16 06/13/25 08:00 BP 151/66 06/13/25 08:00 Pulse Ox 93 L 06/13/25 08:00 FiO2 Intake & Output 06/12/25 06/13/25 06/13/25 18:59 06:59 18:59 Intake Total 248 480 Output Total 975 1000 Balance -727 -1000 480 Weight 64.5 kg 65.2 kg Intake: IV 10 Invasive Line 2 10 Oral 238 480 Output: Urine 975 1000 Other: Voiding Method Indwelling Catheter Indwelling Catheter # Bowel Movements 1 - Exam general: No acute distress Examination of the heart S1 and S2 Examination of the lungs bilateral breath sounds are heard Abdomen is soft nontender Examination of lower extremities shows no evidence of edema SHIPPING ROOM HELPER exam shows patient is able to move all 4 extremities. - Labs CBC & Chem 7: 06/13/25 04:20 06/13/25 04:20 Labs: Abnormal Lab Results - Last 24 Hours (Table) 06/13/25 06/13/25 Range/Units 04:20 04:20 RBC 3.02 L (4.40-5.60) X 10*6/uL Hgb 9.3 L (13.0-17.0) g/dL Hct 28.6 L (39.6-50.0) % Plt Count 125 L (140-440) X 10*3/uL Lymphocytes # 0.56 L (0.90-5.00) X 10*3/uL Chloride 114 H (96-109) mmol/L Carbon Dioxide 19.0 L (21.6-31.8) mmol/L BUN 30.8 H (9.0-27.0) mg/dL Est GFR (CKD-EPI) 54 L (>=60) BUN/Creatinine Ratio 23.69 H (12.00-20.00) Ratio Glucose 116 H (70-110) mg/dL Calcium 6.9 L (8.7-10.3) mg/dL Total Bilirubin <0.2 L (0.3-1.2) mg/dL Total Protein 4.9 L (6.2-8.2) g/dL Albumin 2.9 L (3.8-4.9) g/dL Albumin/Globulin Ratio 1.45 L (1.60-3.17) Ratio Microbiology - Last 24 Hours (Table) 06/10/25 18:46 Blood Culture - Preliminary Blood 06/10/25 17:22 Urine Culture - Preliminary Urine,Voided Gram Neg Bacilli Assessment and Plan Assessment: 1. Acute kidney injury, obstructive and ATN. Rhabdomyolysis contributing to acute kidney injury, although it is more typical with higher levels of CK. UA i s suggestive of myoglobinuria. Currently with indwelling Hirsch catheter. Maintained on IV fluids. Valsartan on hold. CT scan showed moderate to severe right hydronephrosis as well as possible left hydronephrosis. 2. Status post fall 3. History of prostatic cancer 4. Chronic indwelling Hirsch catheter, most likely for neurogenic bladder 5. Hypertension, maintained on valsartan, hydralazine, amlodipine and Lopressor Plan: improved renal function cr. down to 1.3, discussed with RN to discontinue IV fluids , encourage PO hydration Urology consulted, chronic [place] and no plans for intervention Continue with indwelling Hirsch catheter ok to resume valsartan Repeat labs in a.m. Replace potassium as needed
--- NOTE | 2025-06-13 17:22 | P.PN ---
Subjective Progress Note Date: 06/13/25 HISTORY OF PRESENT ILLNESS: Patient is a 85-year-old male with history of CVA in 2022, LBBB, hypertrophic obstructive cardiomyopathy status post AICD, hypertension and hyperlipidemia is admitted to the hospital for rhabdomyolysis secondary to unwitnessed fall with unknown downtime. As per the ER note, patient was found confused laying on the floor next to his bed yesterday afternoon as noticed by his family members. Patient reports that he does not recall how he fell on the floor and the most recent event he recalls is his grandson helping him get up from the floor and eventually he was brought to the ER for further evaluation. Patient denies syncopal or presyncopal episodes before the fall event. He denies chest pain, shortness of breath. He lives alone at home and is generally compliant with his medications. However he reports that for the last 4 to 5 days he has not been taking his medications and is not eating his meal well citing family issues. He normally uses a walker for ambulation because of his right sided weakness due to stroke in 2022. He reports that he has had falls in the past secondary to imbalance especially whenever he turns around too quickly. During his previous falls he denies losing consciousness. Former smoker, quit 30 years ago. His primary automotive general sales manager is Dr. Carlos Fuller. His most recent echocardiogram in 2022 shows LVEF of 40 to 45%, hypertrophic obstructive cardiomyopathy. Labs and images during this admission: WBC 13.3, hemoglobin 12.6, sodium 146, potassium 3.9, BUN 53, creatinine 2.09, magnesium 2.2, creatinine kinase 4430, troponin I 0.234, 0.319, 0.331 CT brain shows no evidence of acute or subacute stroke or mass Chest x-ray shows AICD with trace pleural effusion. EKG shows normal sinus rhythm with left bundle branch block which is old as compared with previous EKG from 2022. No new ST-T wave changes noted. UDS is negative 06/12/2025 Patient examined this morning at bedside. Patient currently denies chest pain or pressure. He denies shortness of breath. Vital signs are stable. Echocardiogram completed revealing ejection fraction 40 to 45%,, distal inferior septal and apical septal wall hypokinesia, dynamic LVOT obstruction with MELANY and resting peak gradient of 40 mmHg, mild aortic regurgitation, moderate eccentric mitral regurgitation 06/13/2024 We asked for the pacemaker interrogation however it has not been documented in the patient's medical chart. Will request it again. Denies any chest pain chest pressure. Denies any further dizziness lightheadedness. He is on valsartan 160 mg twice daily. This was on hold because of ABHISHEK. ABHISHEK is resolving. Will start him on valsartan 80 mg twice daily at this time. PHYSICAL EXAM: VITAL SIGNS: Reviewed. GENERAL: Well-developed in no acute distress. NECK: Supple. No JVD or thyromegaly LUNGS: Respirations even and unlabored. Lungs essentially clear to auscultation bilaterally. HEART: Regular rate and rhythm. S1 and S2 heard. EXTREMITIES: Normal range of motion. No clubbing or cyanosis. Peripheral pulses intact. No lower extremity edema ASSESSMENT: #Rhabdomyolysis secondary to unknown downtime secondary to fall (Mechanical versus syncopal), rule out cardiac cause #Acute kidney injury secondary to rhabdomyolysis #Elevated troponin likely secondary to NSTEMI type II [place] #Leukocytosis likely reactive #Hypovolemic hyponatremia #History of hypertrophic obstructive cardiomyopathy status post AICD #Left bundle branch block #Hypertension PLAN: Continue current cardiac medications including amlodipine, aspirin, Lipitor, Lasix, hydralazine, metoprolol Resume valsartan at 80 mg twice daily. Monitor kidney function. Awaiting AICD interrogation Further recommendations pending patient course Patient to follow-up postdischarge with his automotive general sales manager at [facility] Reevaluate the need for Lasix with his primary automotive general sales manager. Obtain orthostatic vital signs tomorrow Objective - Vital Signs Vital signs: Vital Signs Temp 98.3 F 06/13/25 12:00 Pulse 60 06/13/25 14:00 Resp 16 06/13/25 14:00 BP 139/75 06/13/25 12:00 Pulse Ox 91 L 06/13/25 12:00 FiO2 Intake & Output 06/12/25 06/13/25 06/13/25 18:59 06:59 18:59 Intake Total 248 1920 Output Total 975 1000 2700 Balance -727 -1000 -580 Weight 64.5 kg 65.2 kg Intake: IV 10 Invasive Line 2 10 Oral 238 1920 Output: Urine 975 1000 2700 Other: Voiding Method Indwelling Catheter Indwelling Catheter Indwelling Catheter # Bowel Movements 1 2 - Labs CBC & Chem 7: 07/27/25 04:20 06/13/25 04:20 Labs: Abnormal Lab Results - Last 24 Hours (Table) 06/13/25 06/13/25 Range/Units 04:20 04:20 RBC 3.02 L (4.40-5.60) X 10*6/uL Hgb 9.3 L (13.0-17.0) g/dL Hct 28.6 L (39.6-50.0) % Plt Count 125 L (140-440) X 10*3/uL Lymphocytes # 0.56 L (0.90-5.00) X 10*3/uL Chloride 114 H (96-109) mmol/L Carbon Dioxide 19.0 L (21.6-31.8) mmol/L BUN 30.8 H (9.0-27.0) mg/dL Est GFR (CKD-EPI) 54 L (>=60) BUN/Creatinine Ratio 23.69 H (12.00-20.00) Ratio Glucose 116 H (70-110) mg/dL Calcium 6.9 L (8.7-10.3) mg/dL Total Bilirubin <0.2 L (0.3-1.2) mg/dL Total Protein 4.9 L (6.2-8.2) g/dL Albumin 2.9 L (3.8-4.9) g/dL Albumin/Globulin Ratio 1.45 L (1.60-3.17) Ratio Microbiology - Last 24 Hours (Table) 06/10/25 17:22 Urine Culture - Final Urine,Voided Escherichia coli 06/10/25 18:46 Blood Culture - Preliminary Blood
[2025-06-13] MEDS: VALSARTAN 40 MG TAB PO SCH (20:12)
[2025-06-14] MEDS ORDERED: ZINC OXIDE PASTE (Z-GUARD) 1 APPLIC TOPICAL PRN (10:03)
[2025-06-14] MEDS: POTASSIUM CHLORIDE ER 20 MEQ TAB.ER PO SCH (10:28)
--- NOTE | 2025-06-14 11:47 | P.PN ---
Subjective HISTORY OF PRESENT ILLNESS: Patient is a 85-year-old male with history of CVA in 2022, LBBB, hypertrophic obstructive cardiomyopathy status post AICD, hypertension and hyperlipidemia is admitted to the hospital for rhabdomyolysis secondary to unwitnessed fall with unknown downtime. As per the ER note, patient was found confused laying on the floor next to his bed yesterday afternoon as noticed by his family members. Patient reports that he does not recall how he fell on the floor and the most recent event he recalls is his grandson helping him get up from the floor and eventually he was brought to the ER for further evaluation. Patient denies syncopal or presyncopal episodes before the fall event. He denies chest pain, shortness of breath. He lives alone at home and is generally compliant with his medications. However he reports that for the last 4 to 5 days he has not been taking his medications and is not eating his meal well citing family issues. He normally uses a walker for ambulation because of his right sided weakness due to stroke in 2022. He reports that he has had falls in the past secondary to imbalance especially whenever he turns around too quickly. During his previous falls he denies losing consciousness. Former smoker, quit 30 years ago. His primary upset welding machine operator is Dr. Carlos Fuller. His most recent echocardiogram in 2022 shows LVEF of 40 to 45%, hypertrophic obstructive cardiomyopathy. Labs and images during this admission: WBC 13.3, hemoglobin 12.6, sodium 146, potassium 3.9, BUN 53, creatinine 2.09, magnesium 2.2, creatinine kinase 4430, troponin I 0.234, 0.319, 0.331 CT brain shows no evidence of acute or subacute stroke or mass Chest x-ray shows AICD with trace pleural effusion. EKG shows normal sinus rhythm with left bundle branch block which is old as compared with previous EKG from 2022. No new ST-T wave changes noted. UDS is negative 06/12/2025 Patient examined this morning at bedside. Patient currently denies chest pain or pressure. He denies shortness of breath. Vital signs are stable. Echocardiogram completed revealing ejection fraction 40 to 45%,, distal inferior septal and apical septal wall hypokinesia, dynamic LVOT obstruction with MELANY and resting peak gradient of 40 mmHg, mild aortic regurgitation, moderate eccentric mitral regurgitation 06/13/2024 We asked for the pacemaker interrogation however it has not been documented in the patient's medical chart. Will request it again. Denies any chest pain chest pressure. Denies any further dizziness lightheadedn ess. He is on valsartan 160 mg twice daily. This was on hold because of ABHISHEK. ABHISHEK is resolving. Will start him on valsartan 80 mg twice daily at this time. 06/14/2025 Patient examined this morning at the bedside. Patient currently denies chest pain or pressure. He denies shortness of breath. Vital signs are stable. ICD interrogation completed with no events noted. PHYSICAL EXAM: VITAL SIGNS: Reviewed. GENERAL: Well-developed in no acute distress. NECK: Supple. No JVD or thyromegaly LUNGS: Respirations even and unlabored. Lungs essentially clear to auscultation bilaterally. HEART: Regular rate and rhythm. S1 and S2 heard. Systolic murmur noted- increasing in intensity with Valsalva. EXTREMITIES: Normal range of motion. No clubbing or cyanosis. Peripheral pulses intact. No lower extremity edema ASSESSMENT: #Rhabdomyolysis secondary to unknown downtime secondary to fall (Mechanical versus syncopal), ICD interrogation unremarkable #Acute kidney injury secondary to rhabdomyolysis #Elevated troponin likely secondary to NSTEMI type II [place] #Leukocytosis likely reactive #Hypovolemic hyponatremia #History of hypertrophic obstructive cardiomyopathy status post AICD #Left bundle branch block #Hypertension PLAN: Continue current cardiac medications including amlodipine, aspirin, Lipitor, Lasix, hydralazine, metoprolol, valsartan Check orthostatic blood pressures ICD interrogation completed and unremarkable Patient currently stable from a cardiac standpoint Further recommendations pending patient course Patient to follow-up postdischarge with his upset welding machine operator at [facility] Nurse practitioner note has been reviewed by physician. Signing provider agrees with the documented findings, assessment, and plan of care documented by C[employer] ROLL INSPECTOR as a scribe. Objective - Vital Signs Vital signs: Vital Signs Temp 98.1 F 06/14/25 09:20 Pulse 59 L 06/14/25 09:20 Resp 16 06/14/25 09:20 BP 154/67 06/14/25 09:20 Pulse Ox 95 06/14/25 09:20 FiO2 Intake & Output 06/13/25 06/14/25 06/14/25 18:59 06:59 18:59 Intake Total 1920 1400 1020 Output Total 2700 1100 650 Balance -780 300 370 Intake: Oral 1920 1400 1020 Output: Urine 2700 1100 650 Other: Voiding Method Indwelling Catheter Indwelling Catheter # Bowel Movements 2 1 1 - Labs CBC & Chem 7: 06/13/25 04:20 06/14/25 09:13 Labs: Microbiology - Last 24 Hours (Table) 06/10/25 18:46 Blood Culture - Preliminary Blood 06/10/25 17:22 Urine Culture - Final Urine,Voided Escherichia coli
--- NOTE | 2025-06-14 16:21 | CDI ---
Documentation Clarification Form Date: 06/14/2025 03:38:00 PM From: Ila Urias RN, CCDS Phone: [phone] Admit Date: 06/10/2025 07:47:00 PM Patient Name: Brad Mortensen Visit Number: [id number] Discharge Date: ATTENTION: The Clinical Documentation Specialists (CDI) and [facility] Coding Staff appreciate your assistance in clarifying documentation. Please respond to the clarification below the line at the bottom and electronically sign. The CDI & [facility] Coding staff will review the response and follow-up if needed. Please note: Queries are made part of the Legal Health Record. If you have any questions, please contact the author of this message via ITS. DoctorSophia Rowland Rhabdomyolysis is documented in the Internal Medicine H/P and subsequent progress notes. Additional clarification regarding the type of rhabdomyolysis is requested. History/Risk Factors: Prostate cancer, Heart Failure, Hypertension, CVA with right side weakness Clinical Indicators: 85-year-old male present with fall with unknown downtime believe it was at least 24 hours. 06/10 VS: 173/70 82 16 99.6 95% RA 06/10 Labs: 06/10 WBC 13.33 Na 146 CL 110, BUN 53, CR 2.09,; Troponin 0.234, 0.319, 0.331, 06/10 Creatine Kinase 4430, 06/12 Creatine Kinase 564 Treatment: Tier Lift Operator / Telemetry .9NS 1,000 ML Bolus 06/10-06/10 Monitor Electrolyte abnormality 06/11, 06/12 Please clarify the type of rhabdomyolysis, if known: [ ] Traumatic rhabdomyolysis due to fall [ xxx ] Traumatic rhabdomyolysis due to prolonged immobility [ ] Other, please specify [ ] Unable to Determine (Template Last Revised: January 2021) MTDD
--- NOTE | 2025-06-14 16:51 | CDI ---
Documentation Clarification Form Date: 06/14/2025 04:25:23 PM From: Ila Urias RN, CCDS Phone: [phone] Admit Date: 06/10/2025 07:47:00 PM Patient Name: Brad Mortensen Visit Number: [id number] Discharge Date: ATTENTION: The Clinical Documentation Specialists (CDI) and [facility] Coding Staff appreciate your assistance in clarifying documentation. Please respond to the clarification below the line at the bottom and electronically sign. The CDI & [facility] Coding staff will review the response and follow-up if needed. Please note: Queries are made part of the Legal Health Record. If you have any questions, please contact the author of this message via ITS. Doctor. Jesus Rowland UTI is documented in the Internal Medicine H/P and subsequent progress notes and patient has history of Chronic Indwelling Hirsch Catheter, Additional clarification regarding the etiology of the UTI is requested. History/Risk Factors: Prostate cancer, Heart Failure, Hypertension, CVA with right side weakness, Clinical Indicators: 85-year-old male present with fall with unknown downtime believe it was at least 24 hours. 06/10 VS: 173/70 82 16 99.6 95% RA 06/10 Urinalysis: Urine Nitrite Negative, Ur Leukocyte Esterase Large, Urine WBC >182 06/10 Urine culture: Escherichia coli Lab results: 06/10 Labs: 06/10 WBC 13.33 Na 146 CL 110, BUN 53, CR 2.09, 06/10 KUB: Moderate to severe right hydroneprosis as well as possible left hydronephrosis. 06/10 Nephrology-Consult: Chronic indwelling Hirsch catheter, most likely for neurogenic bladder 06/13 Surgery Consult: Hydronephrosis secondary to ca prostate, chronic. Treatment: Heel Layer / Telemetry .9NS 1,000 ML Bolus 06/10-06/10 Rocephin 2,000 MG IVP Once 06/10 -06/10 > Rocephin 1 GM IVPB Q 24 HRS 06/11-06/14 Monitor Electrolyte abnormality 06/11, 06/12 Please clarify the etiology of the UTI, if known: [ ] Hirsch catheter [ ] UTI not related to catheter [ ] Other condition, please specify [ xxx ] Unable to determine (Template Last Revised: January 2021) MTDD
--- NOTE | 2025-06-14 18:04 | P.PN ---
Subjective Progress Note Date: 06/14/25 Brad Mortensen is a 85-year-old male patient who presented to the ER after being found on the ground by his bed for approximately 48 hours. Patient apparently was found by his family in a somewhat confused state lying next to his bed. Denies loss of consciousness. Patient has a past medical history of heart failure, hypertension, prostate cancer and ex-smoker. Testing in the emergency room revealed no acute intracranial process seen on head CT. EKG showing sinus rhythm heart rate 75. Chest x-ray completed showing COPD with suspected pulmonary arterial hypertension and trace left pleural effusion with some adjacent atelectasis and or consolidation persist. Lab work completed showing white blood cell 13.33, hemoglobin 12.6, sodium 146, creatinine 2.09 bun 53. Creatinine kinase 4430. Troponin 0.234, 0.319 and 0.331. UA positive for urinary tract infection drug screen negative. At this time patient will be admitted patient started on IV antibiotics for urinary tract infection. Cardi ology services consulted for positive troponins. 2D echo ordered nephrology services consulted. Current vital signs temp 100.5, heart rate 70-71, respiratory rate 18, blood pressure 151/75 with pulse ox of 97% on room air. Patient denies chest pain or shortness of breath. Patient denies nausea v omiting or diarrhea. Patient denies any urinary burning or frequency On 06/12/2025 patient is alert and oriented x 3 resting comfortably in bed. Bilateral hydronephrosis seen on abdominal ultrasound urology services were completed. Per urology this appears chronic and the patient follows with ologist in [place] no further recommendations per urology. Per cardiology pacer to be interrogated. Creatinine improving to 1.59 bun 44. Creatinine kinase significantly improving to 564. Patient denies chest pain or shortness of breath. Patient denies nausea vomiting or diarrhea. Patient denies any urinary burning or frequency On 06/13/2025 patient was seen and examined on the medical floor he is alert and oriented x 3 in no apparent distress there is no fever or chills no headache or dizziness no chest pain no shortness of breath no cough no nausea or vomiting no abdominal pain no diarrhea no urinary symptoms. Vital exam reveals a temperature of 98.2 pulse 68 respiration 16 blood pressure 128/65 pulse ox 97% on room air white blood count is 6.25 hemoglobin 9.3 platelet count 125 On 06/14/2025 patient was seen and examined on the medical floor, he is alert, slightly confused in no apparent distress there is no fever or chills no headache or dizziness no chest pain, no shortness of breath no cough no nausea or vomiting no abdominal pain no diarrhea and no urinary symptoms, patient still has significant weakness and gait disturbance, physical therapy and Occupational Therapy following, patient may need rehab at the time of discharge. Objective - Vital Signs Vital signs: Vital Signs Temp 97.8 F 06/14/25 12:09 Pulse 59 L 06/14/25 12:09 Resp 16 06/14/25 12:09 BP 125/66 06/14/25 12:09 Pulse Ox 94 L 06/14/25 12:09 FiO2 Intake & Output 06/13/25 06/14/25 06/14/25 18:59 06:59 18:59 Intake Total 1920 1400 3300 Output Total 2700 1100 1450 Balance -693 172 4773 Intake: Intake, IV Titration 50 Amount cefTRIAXone 1 gm In 50 Sodium Chloride 0.9% 50 ml @ 100 mls/hr IVPB Q24HR [facility] Rx#:[id number] Oral 1920 1400 3250 Output: Urine 2700 1100 1450 Other: Voiding Method Indwelling Catheter Indwelling Catheter Indwelling Catheter # Bowel Movements 2 1 1 - Exam In general patient is alert and oriented x 3 in no distress HEENT head normocephalic and atraumatic Neck is supple no JVD no goiter no lymphadenopathy no carotid bruit Chest examination is clear to auscultation no crackles no wheezing Cardiac exam reveals regular heart sounds S1 and S2 no gallops no murmurs Abdomen is soft nontender no organomegaly with normal bowel sounds Extremity exam reveals no edema no cyanosis or clubbing Neurological examination reveals no gross focal deficits - Labs CBC & Chem 7: 06/13/25 04:20 06/14/25 09:13 Labs: Microbiology - Last 24 Hours (Table) 06/10/25 18:46 Blood Culture - Preliminary Blood 06/10/25 17:22 Urine Culture - Final Urine,Voided Escherichia coli Assessment and Plan Plan: Generalized weakness with falls Rhabdomyolysis Acute kidney injury Bilateral hydronephrosis Urinary tract infection Elevated troponins History of CHF History of essential hypertension History of prostate cancer DVT prophylaxis Lovenox. GI prophylax Protonix Cardiology and nephrology services consulted Patient started on IV antibiotics Urine and blood culture ordered 2D echo carotid Doppler ordered Repeat labs in a.m.
--- NOTE | 2025-06-14 21:23 | P.PN ---
Subjective Patient is seen for follow-up for acute kidney injury serum creatinine down to 1.3. Currently off of IV fluids. Objective - Vital Signs Vital signs: Vital Signs Temp 98.6 F 06/14/25 19:05 Pulse 61 06/14/25 19:05 Resp 20 06/14/25 19:05 BP 153/73 06/14/25 19:05 Pulse Ox 97 06/14/25 19:05 FiO2 Intake & Output 06/14/25 06/14/25 06/15/25 06:59 18:59 06:59 Intake Total 1400 3300 Output Total 1100 1450 Balance 300 1850 Intake: Intake, IV Titration 50 Amount cefTRIAXone 1 gm In 50 Sodium Chloride 0.9% 50 ml @ 100 mls/hr IVPB Q24HR [facility] Rx#:[id number] Oral 1400 3250 Output: Urine 1100 1450 Other: Voiding Method Indwelling Catheter Indwelling Catheter Indwelling Catheter # Bowel Movements 1 1 - Exam Patient is awake, comfortable, no acute distress Examination of the heart S1 and S2 Examination of the lungs bilateral breath sounds are heard Abdomen is soft nontender Examination lower extremity shows no significant edema - Labs CBC & Chem 7: 06/13/25 04:20 06/14/25 09:13 Labs: Microbiology - Last 24 Hours (Table) 06/10/25 18:46 Blood Culture - Preliminary Blood Assessment and Plan Assessment: 1. Acute kidney injury, obstructive and ATN. Rhabdomyolysis contributing to acute kidney injury, although it is more typical with higher levels of CK. UA is suggestive of myoglobinuria. Currently with indwelling Hirsch catheter. Maintained on IV fluids. Valsartan was on hold, now restarted. CT scan showed moderate to severe right hydronephrosis as well as possible left hydronephrosis. 2. Status post fall 3. History of prostatic cancer 4. Chronic indwelling Hirsch catheter, most likely for neurogenic bladder 5. Hypertension, maintained on valsartan, hydralazine, amlodipine and Lopressor 6. Chronic hydronephrosis, evaluated by urology. No plans for intervention. Patient to follow-up with his primary urologist in [place]. Plan: Encourage increased oral intake Okay to continue valsartan Repeat labs in AM.
[2025-06-15] MEDS ORDERED: Potassium Replacement Protocol 1 EACH MISC MISCELLANE PRN (05:46)
[2025-06-15] MEDS: POTASSIUM CHLORIDE ER 20 MEQ TAB.ER PO SCH (06:09)
--- NOTE | 2025-06-15 11:34 | P.PN ---
Subjective HISTORY OF PRESENT ILLNESS: Patient is a 85-year-old male with history of CVA in 2022, LBBB, hypertrophic obstructive cardiomyopathy status post AICD, hypertension and hyperlipidemia is admitted to the hospital for rhabdomyolysis secondary to unwitnessed fall with unknown downtime. As per the ER note, patient was found confused laying on the floor next to his bed yesterday afternoon as noticed by his family members. Patient reports that he does not recall how he fell on the floor and the most recent event he recalls is his grandson helping him get up from the floor and eventually he was brought to the ER for further evaluation. Patient denies syncopal or presyncopal episodes before the fall event. He denies chest pain, shortness of breath. He lives alone at home and is generally compliant with his medications. However he reports that for the last 4 to 5 days he has not been taking his medications and is not eating his meal well citing family issues. He normally uses a walker for ambulation because of his right sided weakness due to stroke in 2022. He reports that he has had falls in the past secondary to imbalance especially whenever he turns around too quickly. During his previous falls he denies losing consciousness. Former smoker, quit 30 years ago. His primary lawyer real estate is Dr. Carlos Fuller. His most recent echocardiogram in 2022 shows LVEF of 40 to 45%, hypertrophic obstructive cardiomyopathy. Labs and images during this admission: WBC 13.3, hemoglobin 12.6, sodium 146, potassium 3.9, BUN 53, creatinine 2.09, magnesium 2.2, creatinine kinase 4430, troponin I 0.234, 0.319, 0.331 CT brain shows no evidence of acute or subacute stroke or mass Chest x-ray shows AICD with trace pleural effusion. EKG shows normal sinus rhythm with left bundle branch block which is old as compared with previous EKG from 2022. No new ST-T wave changes noted. UDS is negative 06/12/2025 Patient examined this morning at bedside. Patient currently denies chest pain or pressure. He denies shortness of breath. Vital signs are stable. Echocardiogram completed revealing ejection fraction 40 to 45%,, distal inferior septal and apical septal wall hypokinesia, dynamic LVOT obstruction with MELANY and resting peak gradient of 40 mmHg, mild aortic regurgitation, moderate eccentric mitral regurgitation 06/13/2024 We asked for the pacemaker interrogation however it has not been documented in the patient's medical chart. Will request it again. Denies any chest pain chest pressure. Denies any further dizziness lightheadedn ess. He is on valsartan 160 mg twice daily. This was on hold because of ABHISHEK. ABHISHEK is resolving. Will start him on valsartan 80 mg twice daily at this time. 06/14/2025 Patient examined this morning at the bedside. Patient currently denies chest pain or pressure. He denies shortness of breath. Vital signs are stable. ICD interrogation completed with no events noted. 06/15/2025 Patient examined this morning at the bedside. Patient did have positive orthostatic blood pressures yesterday. However patient states he was not dizzy or lightheaded at that time. He denies having any shortness of breath. He denies any chest pain or pressure. PHYSICAL EXAM: VITAL SIGNS: Reviewed. GENERAL: Well-developed in no acute distress. NECK: Supple. No JVD or thyromegaly LUNGS: Respirations even and unlabored. Lungs essentially clear to auscultation bilaterally. HEART: Regular rate and rhythm. S1 and S2 heard. Systolic murmur noted- increasing in intensity with Valsalva. EXTREMITIES: Normal range of motion. No clubbing or cyanosis. Peripheral pulses intact. No lower extremity edema ASSESSMENT: #Rhabdomyolysis secondary to unknown downtime secondary to fall (Mechanical versus syncopal), ICD interrogation unremarkable #Acute kidney injury secondary to rhabdomyolysis #Elevated troponin likely secondary to NSTEMI type II IA #Leukocytosis likely reactive #Hypovolemic hyponatremia #History of hypertrophic obstructive cardiomyopathy status post AICD #Left bundle branch block #Hypertension Orthostatic hypotension PLAN: Continue current cardiac medications including amlodipine, aspirin, Lipitor, Lasix, hydralazine, metoprolol, valsartan Patient instructed to change positions slowly. He verbalized understanding Recommend wearing MATY hose on an outpatient basis which patient states he normally does wear compression stockings. Patient is stable for discharge home today from a cardiac standpoint Patient to follow-up postdischarge with his lawyer real estate at [facility] We will sign off. Please reconsult if needed. Nurse practitioner note has been reviewed by physician. Signing provider agrees with the documented findings, assessment, and plan of care documented by [facility] as a scribe. Objective - Vital Signs Vital signs: Vital Signs Temp 98.2 F 06/15/25 07:46 Pulse 61 06/15/25 07:46 Resp 18 06/15/25 07:46 BP 167/75 06/15/25 07:46 Pulse Ox 95 06/15/25 07:46 FiO2 Intake & Output 06/14/25 06/15/25 06/15/25 18:59 06:59 18:59 Intake Total 3300 1160 480 Output Total 1450 1300 Balance 1850 -140 480 Intake: Intake, IV Titration 50 Amount cefTRIAXone 1 gm In 50 Sodium Chloride 0.9% 50 ml @ 100 mls/hr IVPB Q24HR [facility] Rx#:[id number] Oral 3250 1160 480 Output: Urine 1450 1300 Other: Voiding Method Indwelling Catheter Indwelling Catheter Indwelling Catheter # Bowel Movements 1 - Labs CBC & Chem 7: 06/13/25 04:20 06/15/25 04:12
[2025-06-15 11:41] LABS: African American GFR (CKD) 76 (>60 ml/min/1.73 sqM); Anion Gap 8 mmol/L; Blood Urea Nitrogen 23 mg/dL (9-20); Calcium 7.8 mg/dL (8.4-10.2); Carbon Dioxide 23 mmol/L (22-30); Chloride 108 mmol/L (98-107); Glucose 177 mg/dL (74-99); Non-African American GFR(CKD) 66 (>60 ml/min/1.73 sqM); Potassium 3.6 mmol/L (3.5-5.1); Sodium 139 mmol/L (137-145)
--- NOTE | 2025-06-15 12:32 | P.PN ---
Subjective Progress Note Date: 06/15/25 Brad Mortensen is a 85-year-old male patient who presented to the ER after being found on the ground by his bed for approximately 48 hours. Patient apparently was found by his family in a somewhat confused state lying next to his bed. Denies loss of consciousness. Patient has a past medical history of heart failure, hypertension, prostate cancer and ex-smoker. Testing in the emergency room revealed no acute intracranial process seen on head CT. EKG showing sinus rhythm heart rate 75. Chest x-ray completed showing COPD with suspected pulmonary arterial hypertension and trace left pleural effusion with some adjacent atelectasis and or consolidation persist. Lab work completed showing white blood cell 13.33, hemoglobin 12.6, sodium 146, creatinine 2.09 bun 53. Creatinine kinase 4430. Troponin 0.234, 0.319 and 0.331. UA positive for urinary tract infection drug screen negative. At this time patient will be admitted patient started on IV antibiotics for urinary tract infection. Cardi ology services consulted for positive troponins. 2D echo ordered nephrology services consulted. Current vital signs temp 100.5, heart rate 70-71, respiratory rate 18, blood pressure 151/75 with pulse ox of 97% on room air. Patient denies chest pain or shortness of breath. Patient denies nausea v omiting or diarrhea. Patient denies any urinary burning or frequency On 06/12/2025 patient is alert and oriented x 3 resting comfortably in bed. Bilateral hydronephrosis seen on abdominal ultrasound urology services were completed. Per urology this appears chronic and the patient follows with ologist in [place] no further recommendations per urology. Per cardiology pacer to be interrogated. Creatinine improving to 1.59 bun 44. Creatinine kinase significantly improving to 564. Patient denies chest pain or shortness of breath. Patient denies nausea vomiting or diarrhea. Patient denies any urinary burning or frequency On 06/13/2025 patient was seen and examined on the medical floor he is alert and oriented x 3 in no apparent distress there is no fever or chills no headache or dizziness no chest pain no shortness of breath no cough no nausea or vomiting no abdominal pain no diarrhea no urinary symptoms. Vital exam reveals a temperature of 98.2 pulse 68 respiration 16 blood pressure 128/65 pulse ox 97% on room air white blood count is 6.25 hemoglobin 9.3 platelet count 125 On 06/14/2025 patient was seen and examined on the medical floor, he is alert, slightly confused in no apparent distress there is no fever or chills no headache or dizziness no chest pain, no shortness of breath no cough no nausea or vomiting no abdominal pain no diarrhea and no urinary symptoms, patient still has significant weakness and gait disturbance, physical therapy and Occupational Therapy following, patient may need rehab at the time of discharge. On 06/15/2025 patient is alert and oriented x 3. Patient's daughter at bedside. Patient is currently at baseline per daughter intermittent confusion at times. Discharge planning to [facility] versus [facility]. It is okay to hold Nubeqa if patient is discharged to ECF placement. Patient denies chest pain or shortness of breath. Patient denies nausea vomiting or diarrhea. Patient denies any urinary burning or frequency Objective - Vital Signs Vital signs: Vital Signs Temp 97.8 F 06/15/25 12:19 Pulse 64 06/15/25 12:19 Resp 16 06/15/25 12:19 BP 109/62 06/15/25 12:19 Pulse Ox 97 06/15/25 12:19 FiO2 Intake & Output 06/14/25 06/15/25 06/15/25 18:59 06:59 18:59 Intake Total 3300 1160 480 Output Total 1450 1300 Balance 1850 -140 480 Intake: Intake, IV Titration 50 Amount cefTRIAXone 1 gm In 50 Sodium Chloride 0.9% 50 ml @ 100 mls/hr IVPB Q24HR [facility] Rx#:[id number] Oral 3250 1160 480 Output: Urine 1450 1300 Other: Voiding Method Indwelling Catheter Indwelling Catheter Indwelling Catheter # Bowel Movements 1 - Exam In general patient is alert and oriented x 3 in no distress HEENT head normocephalic and atraumatic Neck is supple no JVD no goiter no lymphadenopathy no carotid bruit Chest examination is clear to auscultation no crackles no wheezing Cardiac exam reveals regular heart sounds S1 and S2 no gallops no murmurs Abdomen is soft nontender no organomegaly with normal bowel sounds Extremity exam reveals no edema no cyanosis or clubbing Neurological examination reveals no gross focal deficits - Labs CBC & Chem 7: 06/13/25 04:20 06/15/25 10:44 Labs: Abnormal Lab Results - Last 24 Hours (Table) 06/15/25 Range/Units 10:44 Chloride 108 H (98-107) mmol/L BUN 23 H (9-20) mg/dL Glucose 177 H (74-99) mg/dL Calcium 7.8 L (8.4-10.2) mg/dL Assessment and Plan Plan: Generalized weakness with falls Rhabdomyolysis Acute kidney injury Bilateral hydronephrosis Urinary tract infection Elevated troponins History of CHF History of essential hypertension History of prostate cancer DVT prophylaxis Lovenox. GI prophylax Protonix Cardiology and nephrology services consulted Patient started on IV antibiotics Urine and blood culture ordered 2D echo carotid Doppler ordered Repeat labs in a.m.
[2025-06-15 13:38] VITALS: BMI 22.5
--- NOTE | 2025-06-15 18:00 | P.PN ---
Subjective Patient is seen for follow-up for acute kidney injury serum creatinine down to 1.0. Currently off of IV fluids. No complaints. Objective - Vital Signs Vital signs: Vital Signs Temp 97.8 F 06/15/25 12:19 Pulse 64 06/15/25 12:19 Resp 16 06/15/25 12:19 BP 109/62 06/15/25 12:19 Pulse Ox 97 06/15/25 12:19 FiO2 Intake & Output 06/14/25 06/15/25 06/15/25 18:59 06:59 18:59 Intake Total 3300 1160 2160 Output Total 1450 1300 1000 Balance 1850 -140 1160 Weight 65.2 kg Intake: Intake, IV Titration 50 Amount cefTRIAXone 1 gm In 50 Sodium Chloride 0.9% 50 ml @ 100 mls/hr IVPB Q24HR [facility] Rx#:[id number] Oral 3250 1160 2160 Output: Urine 1450 1300 1000 Other: Voiding Method Indwelling Catheter Indwelling Catheter Indwelling Catheter # Bowel Movements 1 1 - Exam Patient is awake, comfortable, no acute distress Examination of the heart S1 and S2 Examination of the lungs bilateral breath sounds are heard Abdomen is soft nontender Examination lower extremity shows no significant edema - Labs CBC & Chem 7: 06/13/25 04:20 06/15/25 10:44 Labs: Abnormal Lab Results - Last 24 Hours (Table) 06/15/25 Range/Units 10:44 Chloride 108 H (98-107) mmol/L BUN 23 H (9-20) mg/dL Glucose 177 H (74-99) mg/dL Calcium 7.8 L (8.4-10.2) mg/dL Assessment and Plan Assessment: 1. Acute kidney injury, obstructive and ATN. Rhabdomyolysis contributing to acute kidney injury, although it is more typical with higher levels of CK. UA is suggestive of myoglobinuria. Currently with indwelling Hirsch catheter. Status post IV fluids. Valsartan has been restarted. CT scan showed moderate to severe right hydronephrosis as well as possible left hydronephrosis. 2. Status post fall 3. History of prostatic cancer 4. Chronic indwelling Hirsch catheter, most likely for neurogenic bladder 5. Hypertension, maintained on valsartan, hydralazine, amlodipine and Lopressor 6. Chronic hydronephrosis, evaluated by urology. No plans for intervention. Patient to follow-up with his primary urologist in [place]. Plan: Encourage increased oral intake Okay to continue valsartan Repeat labs in AM.
[2025-06-15 21:15] VITALS: PULSE 60
--- NOTE | 2025-06-15 23:19 | P.CONS ---
History of Present Illness - Reason for Consult Consult date: 06/15/25 rehab recommendations - Chief Complaint debility - History of Present Illness Brad Mortensen is an 85 year old, right handed male who lives alone in a 2 story home, can reside on first floor, 2-3 NACNY. Prior to admission, pt was ambulating intermittently with a 4ww. Pt was independent/needed assist for basic/advanced ADLs. He was driving. He does get help with groceries, his mail and taking out the garbage from his family. Support system: children, 1 daughter lives the closest and helps out regularly. Patient presented to [facility] on 06/10/25 after being found on the [place] by his bed for approximately 48 hours. Patient apparently was found by his family in a somewhat confused state lying next to his bed. Denied loss of consciousness. Per records, testing in the emergency room revealed no acute intracranial process seen on head CT. EKG showing sinus rhythm heart rate 75, with LBB. Chest x-ray completed showing COPD with suspected pulmonary arterial hypertension and trace left pleural effusion with some adjacent atelectasis and or consolidation persist. Lab work completed showing white blood cell 13.33, hemoglobin 12.6, sodium 146, creatinine 2.09 bun 53. Creatinine kinase 4430. Troponin 0.234, 0.319 and 0.331. UA positive for urinary tract infection drug screen negative. Patient was admitted and started on IV antibiotics for urinary tract infection. Nephrology consulted for ABHISHEK, Cardiology services consulted for positive troponins, 2D echo ordered. Per record review, Bilateral hydronephrosis seen on abdominal ultrasound urology services were completed. Per urology this appears chronic and the patient follows with urologist in [place] no further recommendations per urology. Per cardiology pacer to be interrogated. Creatinine kinase improved to 564. On 06/12, Echocardiogram completed revealing ejection fraction 40 to 45%. On 06/14, ICD interrogation completed with no events noted per cardiology. PM&R consulted for rehab recommendations. Therapy evaluations reviewed, patient needing: Transfers Jennifer, BM Jennifer, gait 80 ft Jennifer with walker, bathing Jennifer, LB dress modA, toileting modA 06/15: Patient reports he is doing ok, feels tired and weak. He denies ESTRADA, Dizziness, CP, SOB, and abdominal pain. Denies issues with bowels. He has no complaints of pain but feels his whole body is weak. He does have residual right sided weakness since his stroke. 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, anuerysm, skin cancer, prostate cancer a shot q3 months History of Any Multi-Drug Resistant Organisms: None Reported Past Surgical History: Prostate Surgery Past Anesthesia/Blood Transfusion Reactions: No Reported Reaction Type of Cardiac Device: AICD Device Placement Date:: 2016 Past Psychological History: No Psychological Hx Reported Smoking Status: Former smoker Past Alcohol Use History: Rare Past Drug Use History: None Reported Medications and Allergies Home Medications Medication Instructions Recorded Confirmed Type Aspirin EC [Ecotrin Low Dose] 81 mg PO DAILY 11/03/23 06/10/25 History Valsartan [Diovan] 160 mg PO BID 11/03/23 06/10/25 History carBAMazepine [TEGretol] 200 mg PO TID 11/03/23 06/10/25 History Atorvastatin [Lipitor] 20 mg PO DAILY 06/10/25 06/10/25 History Darolutamide [Nubeqa] 600 mg PO BID 06/10/25 06/10/25 History Ferrous Sulfate [Feosol] 325 mg PO DAILY 06/10/25 06/10/25 History Furosemide [Lasix] 20 mg PO DAILY 06/10/25 06/10/25 History Metoprolol Tartrate [Lopressor] 200 mg PO BID 06/10/25 06/10/25 History Pregabalin [Lyrica] 100 mg PO BID 06/10/25 06/10/25 History amLODIPine [Norvasc] 10 mg PO DAILY 06/10/25 06/10/25 History hydrALAZINE HCL [Apresoline] 25 mg PO TID 06/10/25 06/10/25 History Allergies Allergy/AdvReac Type Severity Reaction Status Date / Time verapamil AdvReac Unknown Verified 06/10/25 20:15 Physical Exam Vitals: Vital Signs Temp Pulse Resp BP BP BP Pulse Ox 06/15/25 21:15 60 142/65 06/15/25 19:50 97.8 F 64 18 132/71 98 06/15/25 12:19 97.8 F 64 16 109/62 97 06/15/25 07:46 98.2 F 61 18 167/75 95 06/15/25 07:15 98.2 F 60 16 156/72 91 L 06/15/25 00:05 98.5 F 60 16 171/79 96 Intake and Output 06/15/25 06/15/25 06/15/25 06:59 14:59 22:59 Intake Total 5890 988 1910 Output Total 1300 1000 Balance -140 960 740 Intake: Oral 2126 063 9788 Output: Urine 1300 1000 Other: Voiding Method Indwelling Catheter # Bowel Movements 1 Weight 65.2 kg General: WDWN elderly male laying in bed, in no acute distress HEENT: NC/AT, external ears intact, hearing intact to conversational speech Cardiovascular: B/L calves are supple, nontender, no cords, trace peripheral edema, no cardiac distress Respiratory: Even and unlabored breathing on RA Abdomen: Soft, nontender, nondistended Musculoskeletal: ROM WFL EXCEPT: LE weakness, Residual right sided weakness from CVA Neurological: Alert and oriented x 4 CN II-XII: grossly intact. Right FTN with ataxia Speech is clear. MMT: RUE SABD and EE 4-4+/5, EF and HG 4+/5 LUE 5/5 RLE 4-/5 LLE 4/5 Sensation: intact to light touch of upper and lower extremities Skin: Skin intact where visible to head, neck, and bilateral upper and lower extremities EXCEPT: IV Psychiatric: Mood calm, affect appropriate, cooperative Results CBC & Chem 7: 06/13/25 04:20 06/15/25 10:44 Labs: Abnormal Lab Results - Last 24 Hours (Table) 06/15/25 Range/Units 10:44 Chloride 108 H (98-107) mmol/L BUN 23 H (9-20) mg/dL Glucose 177 H (74-99) mg/dL Calcium 7.8 L (8.4-10.2) mg/dL Assessment and Plan Assessment: #Impaired gait and ADLs 2 Rhabdomyolysis 2 fall -Comprehensive therapies -CK down to 564 from 4430 #UTI -urology following -antibiotics per JAN #ABHISHEK -nephrology following #Elevated troponins 2 NSTEMI -cardiology following -On 06/12, Echocardiogram completed revealing ejection fraction 40 to 45%. -on 06/14, ICD interrogation completed with no events noted. 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 -chronic indwelling zaragoza catheter # Diet- heart healthy per EMR # Skin/wound: Skin/Wound care to follow as needed # Pain Management -lyrica 100 mg BID, morphine 4mg IV q4h prn, norco 5/325 q4h prn, tylenol 650 mg Q6 hrs prn # DVT Prophylaxis: defer to IM/surgical management -lovenox daily per JAN, ASA 81 mg QD #CoMorbidities: heart failure, hypertension, former smoker, Bilateral hydronephrosis, History of prostate cancer -on Nubeqa per JAN, History of hypertrophic obstructive cardiomyopathy status post AICD, Left bundle branch block # Your medical dx and mgt Goals: Modified Independent mobility and ADLS both basic and advanced; increased functional mobility/strength; increased balance, safety, endurance. Improvement in medical issues through your care. Barriers: fall risk, weakness, hemiparesis Discharge recommendation: Patient is noted to be below baseline function, would benefit from a structured Inpatient rehabilitation stay with 3 hrs of therapy a day, 6-7 days a week with Physical Therapy, Occupational Therapy and Speech Therapy (if indicated). Patient has medical complexity requiring nursing services, close physician medical management, and interdisciplinary team approach for rehab. Patient is motivated and has good social support. Patient WILL NOT need insurance authorization. Patient is agreeable to IPR once medically cleared. Patient seen and examined by Perlita Lewis PA-C in collaboration with Dr. Segovia, note remotely prepped by Estela MADDEN Thank you for this consultation.
[2025-06-16 01:23] VITALS: RESP 16
--- NOTE | 2025-06-16 08:10 | P.PN ---
Subjective Patient is seen in follow-up for acute kidney injury. Renal function has improved. Has chronic Hirsch catheter. Nonoliguric. Oral intake is good. Vital signs are stable. General: No acute distress. HEENT: Head exam is unremarkable. LUNGS: No audible rhonchi or wheezes. HEART: Rate and Rhythm are regular. ABDOMEN: Non-tender. EXTREMITITES: No edema. Objective - Vital Signs Vital signs: Vital Signs Temp 97.7 F 06/16/25 06:54 Pulse 60 06/16/25 06:54 Resp 16 06/16/25 06:54 BP 167/78 06/16/25 06:54 Pulse Ox 96 06/16/25 06:54 FiO2 Intake & Output 06/15/25 06/16/25 06/16/25 18:59 06:59 18:59 Intake Total 2700 Output Total 1000 1500 Balance 1700 -1500 Weight 65.2 kg Intake: Oral 2700 Output: Urine 1000 1500 Other: Voiding Method Indwelling Catheter Indwelling Catheter # Bowel Movements 1 - Labs CBC & Chem 7: 06/13/25 04:20 06/16/25 05:15 Labs: Abnormal Lab Results - Last 24 Hours (Table) 06/15/25 Range/Units 10:44 Chloride 108 H (98-107) mmol/L BUN 23 H (9-20) mg/dL Glucose 177 H (74-99) mg/dL Calcium 7.8 L (8.4-10.2) mg/dL Microbiology - Last 24 Hours (Table) 06/10/25 18:46 Blood Culture - Final Blood Assessment and Plan Plan: Assessment: 1. Acute kidney injury secondary to ATN/mild rhabdomyolysis and obstructive uropathy. Improved. Bilateral hydronephrosis noted on CAT scan. 2. Bilateral hydronephrosis, appears to be chronic. Being followed by urology. Has chronic Hirsch catheter. 3. Hypertension with chronic kidney disease. Stable. 4. Status post fall. 5. E. coli UTI on antibiotics. Plan: Encouraged oral intake. Maintain low-dose Lasix and valsartan for now. Avoid nephrotoxins. Continue to monitor renal function and urine output. Check iron studies.
[2025-06-16 11:08] LABS: Ferritin 170.0 ng/mL (22.0-322.0); Iron 54.0 UG/DL (65-175); Total Iron Binding Capacity 200.0 UG/DL (228-460)
[2025-06-16 12:32] VITALS: BP 166/70; TEMP 98
--- NOTE | 2025-06-16 13:20 | P.DS ---
Providers Date of admission: 06/10/25 19:47 Expected date of discharge: 06/16/25 Attending physician: Jesus Rowland Consults: 06/10/25 19:59 Consult Physician Urgent Consulting Provider: Misty Hairston Consult Reason/Comments: Rhabdomyolysis with ABHISHEK Do you want consulting provider notified?: Yes 06/11/25 16:45 Consult Physician Routine Consulting Provider: Akbar Simpson Consult Reason/Comments: Bilateral hydronephrosis Do you want consulting provider notified?: Yes 06/15/25 11:18 Consult Physician Routine Consulting Provider: Carlos Alonso Consult Reason/Comments: IPR eval Do you want consulting provider notified?: Yes Primary care physician: Jessu Janett [facility] Course: Diagnosis on discharge: Generalized weakness with falls Rhabdomyolysis Acute kidney injury Bilateral hydronephrosis Urinary tract infection Elevated troponins History of CHF History of essential hypertension History of prostate cancer Hospital course: Brad Mortensen is a 85-year-old male patient who presented to the ER after being found on the ground by his bed for approximately 48 hours. Patient apparently was found by his family in a somewhat confused state lying next to his bed. Denies loss of consciousness. Patient has a past medical history of heart failure, hypertension, prostate cancer and ex-smoker. Testing in the emergency room revealed no acute intracranial process seen on head CT. EKG showing sinus rhythm heart rate 75. Chest x-ray completed showing COPD with suspected pulmonary arterial hypertension and trace left pleural effusion with some adjacent atelectasis and or consolidation persist. Lab work completed showing white blood cell 13.33, hemoglobin 12.6, sodium 146, creatinine 2.09 bun 53. Creatinine kinase 4430. Troponin 0.234, 0.319 and 0.331. UA positive for urinary tract infection drug screen negative. At this time patient will be admitted patient started on IV antibiotics for urinary tract infection. Cardiology services consulted for positive troponins. 2D echo ordered nephrology services consulted. Current vital signs temp 100.5, heart rate 70- 71, respiratory rate 18, blood pressure 151/75 with pulse ox of 97% on room air. Patient denies chest pain or shortness of breath. Patient denies nausea vomiting or diarrhea. Patient denies any urinary burning or frequency On 06/12/2025 patient is alert and oriented x 3 resting comfortably in bed. Bilateral hydronephrosis seen on abdominal ultrasound urology services were completed. Per urology this appears chronic and the patient follows with urologist in [place] no further recommendations per urology. Per cardiology pacer to be interrogated. Creatinine improving to 1.59 bun 44. Creatinine kinase significantly improving to 564. Patient denies chest pain or shortness of breath. Patient denies nausea vomiting or diarrhea. Patient denies any urinary burning or frequency On 06/13/2025 patient was seen and examined on the medical floor he is alert and oriented x 3 in no apparent distress there is no fever or chills no headache or dizziness no chest pain no shortness of breath no cough no nausea or vomiting no abdominal pain no diarrhea no urinary symptoms. Vital exam reveals a temperature of 98.2 pulse 68 respiration 16 blood pressure 128/65 pulse ox 97% on room air white blood count is 6.25 hemoglobin 9.3 platelet count 125 On 06/14/2025 patient was seen and examined on the medical floor, he is alert, slightly confused in no apparent distress there is no fever or chills no headache or dizziness no chest pain, no shortness of breath no cough no nausea or vomiting no abdominal pain no diarrhea and no urinary symptoms, patient still has significant weakness and gait disturbance, physical therapy and Occupational Therapy following, patient may need rehab at the time of discharge. On 06/15/2025 patient is alert and oriented x 3. Patient's daughter at bedside. Patient is currently at baseline per daughter intermittent confusion at times. Discharge planning to [facility] versus [facility]. It is okay to hold Nubeqa if patient is discharged to ECF placement. Patient denies chest pain or shortness of breath. Patient denies nausea vomiting or diarrhea. Patient denies any urinary burning or frequency On 06/16/2025 patient was seen and examined on the medical floor he is alert and oriented x 3 in no apparent distress there is no fever or chills no headache or dizziness no chest pain no shortness of breath no cough no nausea or vomiting no abdominal pain no diarrhea and no urinary symptoms. Plan is to transfer to [facility] on the [address] today for rehab, patient will not be taking his Nubeqa at the senior living. He will resume taking medication when he is discharged home. Plan - Discharge Summary Discharge Rx Participant: No New Discharge Prescriptions: New Valsartan [Diovan] 40 mg PO BID 30 Days #60 tab Continue Atorvastatin [Lipitor] 20 mg PO DAILY Ferrous Sulfate [Iron (65 MG Elemental)] 325 mg PO DAILY Metoprolol Tartrate [Lopressor] 200 mg PO BID Furosemide [Lasix] 20 mg PO DAILY Aspirin EC [Ecotrin Low Dose] 81 mg PO DAILY carBAMazepine [TEGretol] 200 mg PO TID hydrALAZINE HCL [Apresoline] 25 mg PO TID Pregabalin [Lyrica] 100 mg PO BID amLODIPine [Norvasc] 10 mg PO DAILY Discontinued Darolutamide [Nubeqa] 600 mg PO BID Valsartan [Diovan] 160 mg PO BID Discharge Medication List Aspirin EC [Ecotrin Low Dose] 81 mg PO DAILY 11/03/23 [History] carBAMazepine [TEGretol] 200 mg PO TID 11/03/23 [History] Atorvastatin [Lipitor] 20 mg PO DAILY 06/10/25 [History] Ferrous Sulfate [Iron (65 MG Elemental)] 325 mg PO DAILY 06/10/25 [History] Furosemide [Lasix] 20 mg PO DAILY 06/10/25 [History] Metoprolol Tartrate [Lopressor] 200 mg PO BID 06/10/25 [History] Pregabalin [Lyrica] 100 mg PO BID 06/10/25 [History] amLODIPine [Norvasc] 10 mg PO DAILY 06/10/25 [History] hydrALAZINE HCL [Apresoline] 25 mg PO TID 06/10/25 [History] Valsartan [Diovan] 40 mg PO BID 30 Days #60 tab 06/16/25 [Rx] Follow up Appointment(s)/Referral(s): None,Stated [REFERRING] - 1-2 days
--- NOTE | 2025-06-16 13:30 | P.DS ---
Providers Date of admission: 06/10/25 19:47 Expected date of discharge: 06/16/25 Attending physician: Jesus Rowland Consults: 06/10/25 19:59 Consult Physician Urgent Consulting Provider: Misty Hairston Consult Reason/Comments: Rhabdomyolysis with ABHISHEK Do you want consulting provider notified?: Yes 06/11/25 16:45 Consult Physician Routine Consulting Provider: Akbar Simpson Consult Reason/Comments: Bilateral hydronephrosis Do you want consulting provider notified?: Yes 06/15/25 11:18 Consult Physician Routine Consulting Provider: Carlos Alonso Consult Reason/Comments: IPR eval Do you want consulting provider notified?: Yes Primary care physician: Jesus Janett [facility] Course: Diagnosis on discharge: Generalized weakness with falls Rhabdomyolysis Acute kidney injury Bilateral hydronephrosis Urinary tract infection Elevated troponins History of CHF History of essential hypertension History of prostate cancer Hospital course: Brad Mortensen is a 85-year-old male patient who presented to the ER after being found on the ground by his bed for approximately 48 hours. Patient apparently was found by his family in a somewhat confused state lying next to his bed. Denies loss of consciousness. Patient has a past medical history of heart failure, hypertension, prostate cancer and ex-smoker. Testing in the emergency room revealed no acute intracranial process seen on head CT. EKG showing sinus rhythm heart rate 75. Chest x-ray completed showing COPD with suspected pulmonary arterial hypertension and trace left pleural effusion with some adjacent atelectasis and or consolidation persist. Lab work completed showing white blood cell 13.33, hemoglobin 12.6, sodium 146, creatinine 2.09 bun 53. Creatinine kinase 4430. Troponin 0.234, 0.319 and 0.331. UA positive for urinary tract infection drug screen negative. At this time patient will be admitted patient started on IV antibiotics for urinary tract infection. Cardiology services consulted for positive troponins. 2D echo ordered nephrology services consulted. Current vital signs temp 100.5, heart rate 70- 71, respiratory rate 18, blood pressure 151/75 with pulse ox of 97% on room air. Patient denies chest pain or shortness of breath. Patient denies nausea vomiting or diarrhea. Patient denies any urinary burning or frequency On 06/12/2025 patient is alert and oriented x 3 resting comfortably in bed. Bilateral hydronephrosis seen on abdominal ultrasound urology services were completed. Per urology this appears chronic and the patient follows with urologist in [place] no further recommendations per urology. Per cardiology pacer to be interrogated. Creatinine improving to 1.59 bun 44. Creatinine kinase significantly improving to 564. Patient denies chest pain or shortness of breath. Patient denies nausea vomiting or diarrhea. Patient denies any urinary burning or frequency On 06/13/2025 patient was seen and examined on the medical floor he is alert and oriented x 3 in no apparent distress there is no fever or chills no headache or dizziness no chest pain no shortness of breath no cough no nausea or vomiting no abdominal pain no diarrhea no urinary symptoms. Vital exam reveals a temperature of 98.2 pulse 68 respiration 16 blood pressure 128/65 pulse ox 97% on room air white blood count is 6.25 hemoglobin 9.3 platelet count 125 On 06/14/2025 patient was seen and examined on the medical floor, he is alert, slightly confused in no apparent distress there is no fever or chills no headache or dizziness no chest pain, no shortness of breath no cough no nausea or vomiting no abdominal pain no diarrhea and no urinary symptoms, patient still has significant weakness and gait disturbance, physical therapy and Occupational Therapy following, patient may need rehab at the time of discharge. On 06/15/2025 patient is alert and oriented x 3. Patient's daughter at bedside. Patient is currently at baseline per daughter intermittent confusion at times. Discharge planning to [facility] versus [facility]. It is okay to hold Nubeqa if patient is discharged to ECF placement. Patient denies chest pain or shortness of breath. Patient denies nausea vomiting or diarrhea. Patient denies any urinary burning or frequency On 06/16/2025 patient was seen and examined on the medical floor he is alert and oriented x 3 in no apparent distress there is no fever or chills no headache or dizziness no chest pain no shortness of breath no cough no nausea or vomiting no abdominal pain no diarrhea and no urinary symptoms. Plan is to transfer to [facility] today for rehab. Plan - Discharge Summary Discharge Rx Participant: No New Discharge Prescriptions: New Valsartan [Diovan] 40 mg PO BID 30 Days #60 tab Continue Atorvastatin [Lipitor] 20 mg PO DAILY Ferrous Sulfate [Iron (65 MG Elemental)] 325 mg PO DAILY Metoprolol Tartrate [Lopressor] 200 mg PO BID Furosemide [Lasix] 20 mg PO DAILY Aspirin EC [Ecotrin Low Dose] 81 mg PO DAILY carBAMazepine [TEGretol] 200 mg PO TID hydrALAZINE HCL [Apresoline] 25 mg PO TID Pregabalin [Lyrica] 100 mg PO BID amLODIPine [Norvasc] 10 mg PO DAILY Discontinued Darolutamide [Nubeqa] 600 mg PO BID Valsartan [Diovan] 160 mg PO BID Discharge Medication List Aspirin EC [Ecotrin Low Dose] 81 mg PO DAILY 11/03/23 [History] carBAMazepine [TEGretol] 200 mg PO TID 11/03/23 [History] Atorvastatin [Lipitor] 20 mg PO DAILY 06/10/25 [History] Ferrous Sulfate [Iron (65 MG Elemental)] 325 mg PO DAILY 06/10/25 [History] Furosemide [Lasix] 20 mg PO DAILY 06/10/25 [History] Metoprolol Tartrate [Lopressor] 200 mg PO BID 06/10/25 [History] Pregabalin [Lyrica] 100 mg PO BID 06/10/25 [History] amLODIPine [Norvasc] 10 mg PO DAILY 06/10/25 [History] hydrALAZINE HCL [Apresoline] 25 mg PO TID 06/10/25 [History] Valsartan [Diovan] 40 mg PO BID 30 Days #60 tab 06/16/25 [Rx] Follow up Appointment(s)/Referral(s): None,Stated [REFERRING] - 1-2 days
== END 2025-06-16 15:58 | DRG 564 ==
LOC: EC 16:34 → 3SCARD 19:47 → 5NMEDONC 06-12 14:37
PROVIDERS: ADMIT Internal Medicine; ATTEND Internal Medicine
DX: T79.6XXA Traumatic ischemia of muscle, initial encounter (principal); I21.A1 Myocardial infarction type 2; N17.0 Acute kidney failure with tubular necrosis; I42.1 Obstructive hypertrophic cardiomyopathy; I13.0 Hypertensive heart and chronic kidney disease with heart failure and stage 1 through stage 4 chronic kidney disease, or unspecified chronic kidney disease; E87.1 Hypo-osmolality and hyponatremia; N13.6 Pyonephrosis; C61 Malignant neoplasm of prostate; I69.351 Hemiplegia and hemiparesis following cerebral infarction affecting right dominant side; N18.9 Chronic kidney disease, unspecified; I50.9 Heart failure, unspecified; I69.393 Ataxia following cerebral infarction; B96.20 Unspecified Escherichia coli [E. coli] as the cause of diseases classified elsewhere; W19.XXXA Unspecified fall, initial encounter; I95.1 Orthostatic hypotension; E78.5 Hyperlipidemia, unspecified; Z60.2 Problems related to living alone; N31.9 Neuromuscular dysfunction of bladder, unspecified; E86.1 Hypovolemia; I44.7 Left bundle-branch block, unspecified; Z95.810 Presence of automatic (implantable) cardiac defibrillator; Y92.009 Unspecified place in unspecified non-institutional (private) residence as the place of occurrence of the external cause; Z79.82 Long term (current) use of aspirin; Z79.899 Other long term (current) drug therapy; Z85.46 Personal history of malignant neoplasm of prostate; Z85.828 Personal history of other malignant neoplasm of skin; Z87.891 Personal history of nicotine dependence; Z91.148 Patient's other noncompliance with medication regimen for other reason
CPT/HCPCS: 36415; 70450; 71046; 72125; 76770; 80048; 80053; 80306; 81001; 82550; 82728; 83540; 83550; 83605; 83735; 84100; 84132; 84484; 85025; 85610; 85730; 87040; 87077; 87086; 87186; 93005; 93306; 93880; 96361; 96365; 96366; 96375; 99285